=== PATIENT | female | born 1970 | race Caucasian/White ===

== ENCOUNTER 2016-03-11 17:03 | Emergency (ER) | payer OTHER ==
[~2016-03-11] VITALS: Ht 160 cm; Wt 106.1 kg
[~2016-03-11 17:03] MED LIST: CMP/10 PO; FLUT0.15 NAE
[2016-03-11 17:05] VITALS: BP 149/88; PULSE 61; TEMP 37; O2SAT 97; Ht 160 cm; Wt 106.1 kg
[2016-03-11] MEDS ORDERED: PROMETHAZINE HCL INJ 25 MG/ML 1 ML VIAL IM STA (17:36)
[2016-03-11] MEDS ORDERED: KETOROLAC TROMETHAMINE 60 MG/2 ML VIAL IM STA (17:36)
[2016-03-11] MEDS ORDERED: HYDROmorphone INJ 2 MG/ML SYR/VIAL IM ONE (17:45)
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
--- NOTE | 2016-03-13 00:52 | EMERGENCY ROOM VISIT NOTE ---
ED Visit Note First contact with patient: 17:13 CHIEF COMPLAINT: Migraine headache HISTORY OF PRESENT ILLNESS: Ms. Hurt is a 45 year-old white female who ambulates into the ED accompanied by her complaining of a migraine headache. She reports a gradual onset of a severe migraine headache that started approximately 2 days ago. The pain is constant and it is slowly increasing in severity. This is not the worst headache of the life and is similar to previous migraines. Currently she describes the headache as a pressure sensation/pain in the left frontal area behind the eye and radiating into the right parietal area. She rates the pain a 10/10. She has not identified any aggravating or alleviating factors related to pain. She reports taking Imitrex and OTC migraine headache medications without relief of pain. There is been associated light and sound sensitivity, right sided facial paresthesias, nausea with vomiting. She denies fever, chills, sweats, skin eruptions, skin color changes, dizziness , lightheadedness, recent head trauma, hearing changes, difficulty speaking, difficulty swallowing, difficulty ambulating/coronary body movements, neck pain/ stiffness, upper respiratory tract symptoms, sinus infection, runny nose, sore throat, recent dental trauma/dental work, extremity weakness/numbness/tingling, chest pain shortness of breath, abdominal pain. REVIEW OF SYSTEMS: As noted above in History of Present Illness. All body systems were reviewed with this patient and found to be negative unless noted above otherwise. PAST MEDICAL HISTORY: Medical Problems: (1) Anemia (2) Anxiety (3) Cystitides, interstitial, chronic (4) Depression (5) Drug overdose, intentional (6) Migraine (7) PTSD (post-traumatic stress disorder) (8) Restless leg syndrome (9) Suicidal overdose (10) Suicidal overdose (11) Suicide attempt (12) Vertigo Surgical Problems: (1) H/O gastric bypass (2) H/O: hysterectomy (3) History of appendectomy (4) History of tonsillectomy and adenoidectomy (5) Hx of cholecystectomy (6) Previous section CURRENT MEDICATIONS: Medications Dose Route/Sig Max Daily Dose Days Date Category Prazosin (Prazosin HCl) 2 Mg Cap 2 Mg PO HS 12/24/15 Reported Thorazine (Chlorpromazine HCl) 10 Mg Tab 10 Mg PO TID 12/24/15 Reported Promethazine HCl 25 Mg Tab 25 Mg PO Q6H PRN 12/12/15 Reported Trintellix (Vortioxetine HBr) 20 Mg Tab 20 Mg PO DAILY 11/06/15 Reported Prochlorperazine Maleate 10 Mg Tab 10 Mg PO UD PRN 09/28/15 Reported Eszopiclone 2 Mg Tab 2 Mg PO HS PRN 09/28/15 Reported Benadryl Allergy (Diphenhydramine Hcl) 25 Mg Cap 250 Mg PO HS PRN 07/18/15 Reported Klonopin (Clonazepam) 1 Mg Tab 1 Mg PO BID 06/01/15 Reported Excedrin Migraine (Mtusvaf-Pxdetckuikeca-Rvezvwcb) 1 Tab Tab 2 Tabs PO UD PRN 05/19/15 Reported Calcium Citrate + D (Calcium Citrate-Vitamin D) 1 Tab Tab 1 Tab PO DAILY 03/28/15 Reported Parafon Forte Dsc (Chlorzoxazone) 500 Mg Tab 500 Mg PO QID 03/28/15 Reported Elmiron (Pentosan Polysulfate Sodium) 100 Mg Cap 100 Mg PO TID PRN 03/28/15 Reported Flonase Allergy Relief (Fluticasone Propionate (Nasal)) 50 Mcg/Act Spr 2 Sprays ALEX DAILY 03/28/15 Reported Voltaren 1% Top Gel (Diclofenac Sodium (Topical)) 1 % Gel 1 Appln TOP QID PRN 03/28/15 Reported Ferrous Sulfate 325 Mg Tab 325 Mg PO DAILY 03/28/15 Reported Requip (Ropinirole Hydrochloride) 0.5 Mg Tab 1 Mg PO TID 03/28/15 Reported ALLERGIES TO MEDICATIONS: Latex, sulfa, butorphanol. SOCIAL HISTORY: Patient is not currently employed; she feels safe in her home environment; she denies tobacco and alcohol use. PHYSICAL EXAM: Vital Signs: Date Time Temp Pulse Resp B/P Pulse Ox O2 Delivery O2 Flow Rate FiO2 03/11/16 17:05 37.0 61 18 149/88 97 Room Air GENERAL: 45 year-old white female in moderate distress due to pain, afebrile and hemodynamically stable. Found lying in a darkened room. NEUROLOGIC: Awake, alert and oriented to person place and time. Answering questions appropriately and following commands. Cranial nerves II-XII grossly intact. No focal neurologic deficits noted. Normal gait. Good hand eye coordination. Good short-term and long-term recall. SKIN: Warm, dry and pink. No rashes, lesions or soft tissue trauma noted. HEENT: Normocephalic, atraumatic. PERRLA. EOMI without nystagmus. Sclera is white and conjunctiva pink without drainage. Funduscopic examination was deferred due to light sensitivity. External ears are nontender. Auditory canals are pink and patent. Tympanic membranes are pearly estrada with normal light reflex. Oral cavity is moist and pink. Uvula is midline and no abscesses are seen. No posterior pharyngeal erythema or edema. NECK: Soft and supple. No tenderness through the central cervical region or cervical musculature. No nuchal rigidity. No lymphadenopathy, jugular venous distention, or bruits noted. THORAX: Lungs clear to auscultation and equal bilaterally with no wheezing, crackles, rhonchi or stridor and equal chest wall movements. HEART: Regular rate and rhythm with no murmurs, rubs or gallops. ABDOMEN: Soft and nontender with bowel sounds present in all quadrants; no rigidity, rebound tenderness, organomegaly or guarding. MUSCULOSKELETAL: Full range of motion of all joints without any significant discomfort and the gait is normal. ED COURSE: Patient is assessed with history and physical examination. Patient was given 2 mg of the Dilaudid IM and 60 mg of Toradol IM for the pain and 25 mg of Phenergan IM nausea. Patient was reassessed. Patient was educated about her condition and instructed on her treatment plan; she verbalized understanding and agreement with this plan. CLINICAL IMPRESSION: Migraine headache. DECISION MAKIN-year-old female who presents for evaluation of headache. She is afebrile, well appearing, and hemodynamically stable. She has no signs of a sinus, dental , or ear infection and no evidence of meningismus. She is neurologically intact. I do not suspect a headache to be secondary to a subarachnoid hemorrhage, meningitis, encephalitis, or intracranial mass lesion. DISPOSITION: Patient was discharged to home in stable condition accompanied by family; prior to departure she was reassessed and subjectively reported she was feeling minimally better and rated her discomfort 5/10. DISCHARGE INSTRUCTIONS: Rest at home, in a quiet darkened room and allow the medication to work for the pain. Continue to follow up current treatment plan prescribed by your physician for your migraine headaches. See your own doctor in follow-up this week for continued care and treatment. Return to the emergency department as needed for worsening/uncontrolled pain, any abnormal neurological symptoms, fevers or in accordance with her pain management plan.
[2016-04-10] MEDS ORDERED: CHLO1TAB38 PO (05:11)
[2016-04-10] MEDS ORDERED: PRAZ2CAP3 PO (05:12)
[2016-04-17] MEDS ORDERED: ESZO1TAB20 PO (00:23)
[2016-04-17] MEDS ORDERED: PROM25TA16 PO (15:15)
[2016-04-17] MEDS ORDERED: DIPH25CA65 PO (19:17)
[2016-04-17] MEDS ORDERED: VORT1TAB3 PO (19:34)
[2016-04-17] MEDS ORDERED: CALC-279 PO (20:09)
[2016-04-17] MEDS ORDERED: RQP/5 PO (20:09)
[2016-04-17] MEDS ORDERED: PENT100C6 PO (20:09)
[2016-04-17] MEDS ORDERED: FERR325T5 PO (20:09)
[2016-04-17] MEDS ORDERED: CHLOTAB3 PO (20:09)
[2016-04-17] MEDS ORDERED: DICL1GEL12 TOP (20:09)
[2016-04-17] MEDS ORDERED: ASPI-390 PO (20:39)
== END 2016-03-11 18:16 | disposition home or self-care (01) ==
LOC: C.EDB 17:04 → C.EDD 18:16
DX: G43.909 Migraine, unspecified, not intractable, without status migrainosus (principal); Z98.84 Bariatric surgery status; F43.10 Post-traumatic stress disorder, unspecified; G25.81 Restless legs syndrome; Z90.710 Acquired absence of both cervix and uterus; Z90.89 Acquired absence of other organs; Z90.49 Acquired absence of other specified parts of digestive tract; F41.9 Anxiety disorder, unspecified; Z91.040 Latex allergy status; Z88.2 Allergy status to sulfonamides

== ENCOUNTER 2016-03-22 16:33 | Emergency (ER) | payer OTHER ==
[~2016-03-22] VITALS: Ht 160 cm; Wt 104.6 kg
[2016-03-22 16:56] VITALS: TEMP 36.9; Ht 160 cm; Wt 104.6 kg
[2016-03-22] MEDS ORDERED: PROMETHAZINE HCL INJ 25 MG/ML 1 ML VIAL IM STA (17:17)
[2016-03-22] MEDS ORDERED: KETOROLAC TROMETHAMINE 60 MG/2 ML VIAL IM STA (17:17)
[2016-03-22] MEDS ORDERED: HYDROmorphone INJ 2 MG/ML SYR/VIAL IM STA (17:17)
[2016-03-22 17:56] VITALS: BP 140/91; PULSE 98; O2SAT 94
--- NOTE | 2016-03-23 10:54 | EMERGENCY ROOM VISIT NOTE ---
ED Visit Note First contact with patient: 16:58 CHIEF COMPLAINT: Migraine headache HISTORY OF PRESENT ILLNESS: Ms. Hurt is a 45 year-old white female who ambulates into the ED accompanied by a female friend complaining of a migraine headache. She reports a gradual onset of a severe migraine headache that started approximately 6 days ago. The pain is constant and it is slowly increasing in severity. This is not the worst headache of the life and is similar to previous migraines. Currently she describes the headache as a pressure sensation/pain in the left frontal area behind the eye and radiating into the right parietal area. She rates the pain a 9/10. She has not identified any aggravating or alleviating factors related to pain. She reports taking Excedrin Migraine and Compazine without relief of her symptoms. There is been associated light and sound sensitivity, right sided facial paresthesias, nausea with vomiting. She denies fever, chills, sweats, skin eruptions, skin color changes, dizziness , lightheadedness, recent head trauma, hearing changes, difficulty speaking, difficulty swallowing, difficulty ambulating/coronary body movements, neck pain/ stiffness, upper respiratory tract symptoms, sinus infection, runny nose, sore throat, recent dental trauma/dental work, extremity weakness/numbness/tingling, chest pain shortness of breath, abdominal pain. REVIEW OF SYSTEMS: As noted above in History of Present Illness. All body systems were reviewed with this patient and found to be negative unless noted above otherwise. PAST MEDICAL HISTORY: Medical Problems: (1) Anemia (2) Anxiety (3) Cystitides, interstitial, chronic (4) Depression (5) Drug overdose, intentional (6) Migraine (7) PTSD (post-traumatic stress disorder) (8) Restless leg syndrome (9) Suicidal overdose (10) Suicidal overdose (11) Suicide attempt (12) Vertigo Surgical Problems: (1) H/O gastric bypass (2) H/O: hysterectomy (3) History of appendectomy (4) History of tonsillectomy and adenoidectomy (5) Hx of cholecystectomy (6) Previous section CURRENT MEDICATIONS: Medications Dose Route/Sig Max Daily Dose Days Date Category Prazosin (Prazosin HCl) 2 Mg Cap 2 Mg PO HS 12/24/15 Reported Thorazine (Chlorpromazine HCl) 10 Mg Tab 25 Mg PO TID 12/24/15 Reported Promethazine HCl 25 Mg Tab 25 Mg PO Q6H PRN 12/12/15 Reported Trintellix (Vortioxetine HBr) 20 Mg Tab 20 Mg PO DAILY 11/06/15 Reported Prochlorperazine Maleate 10 Mg Tab 10 Mg PO UD PRN 09/28/15 Reported Eszopiclone 2 Mg Tab 2 Mg PO HS PRN 09/28/15 Reported Benadryl Allergy (Diphenhydramine Hcl) 25 Mg Cap 250 Mg PO HS PRN 07/18/15 Reported Klonopin (Clonazepam) 1 Mg Tab 1 Mg PO BID 06/01/15 Reported Excedrin Migraine (Zzxkagq-Puhqnzfrxeogq-Gkjzeywk) 1 Tab Tab 2 Tabs PO UD PRN 05/19/15 Reported Calcium Citrate + D (Calcium Citrate-Vitamin D) 1 Tab Tab 1 Tab PO DAILY 03/28/15 Reported Parafon Forte Dsc (Chlorzoxazone) 500 Mg Tab 500 Mg PO QID 03/28/15 Reported Elmiron (Pentosan Polysulfate Sodium) 100 Mg Cap 100 Mg PO TID PRN 03/28/15 Reported Flonase Allergy Relief (Fluticasone Propionate (Nasal)) 50 Mcg/Act Spr 2 Sprays ALEX DAILY 03/28/15 Reported Voltaren 1% Top Gel (Diclofenac Sodium (Topical)) 1 % Gel 1 Appln TOP QID PRN 03/28/15 Reported Ferrous Sulfate 325 Mg Tab 325 Mg PO DAILY 03/28/15 Reported Requip (Ropinirole Hydrochloride) 0.5 Mg Tab 1 Mg PO TID 03/28/15 Reported ALLERGIES TO MEDICATIONS: Latex, sulfa, butorphanol. SOCIAL HISTORY: Patient is not currently employed; she feels safe in her home environment; she denies tobacco and alcohol use. PHYSICAL EXAM: Vital Signs: Date Time Temp Pulse Resp B/P Pulse Ox O2 Delivery O2 Flow Rate FiO2 03/22/16 17:56 98 16 140/91 94 Room Air 03/22/16 16:56 36.9 107 18 143/104 96 Room Air GENERAL: 45 year-old white female in moderate distress due to pain, afebrile and hemodynamically stable. Found lying in a darkened room. NEUROLOGIC: Awake, alert and oriented to person place and time. Answering questions appropriately and following commands. Cranial nerves II-XII grossly intact. No focal neurologic deficits noted. Normal gait. Good hand eye coordination. Good short-term and long-term recall. SKIN: Warm, dry and pink. No rashes, lesions or soft tissue trauma noted. HEENT: Normocephalic, atraumatic. PERRLA. EOMI without nystagmus. Sclera is white and conjunctiva pink without drainage. Funduscopic examination was deferred due to light sensitivity. External ears are nontender. Auditory canals are pink and patent. Tympanic membranes are pearly estrada with normal light reflex. Oral cavity is moist and pink. Uvula is midline and no abscesses are seen. No posterior pharyngeal erythema or edema. NECK: Soft and supple. No tenderness through the central cervical region or cervical musculature. No nuchal rigidity. No lymphadenopathy, jugular venous distention, or bruits noted. THORAX: Lungs clear to auscultation and equal bilaterally with no wheezing, crackles, rhonchi or stridor and equal chest wall movements. HEART: Regular rate and rhythm with no murmurs, rubs or gallops. ABDOMEN: Soft and nontender with bowel sounds present in all quadrants; no rigidity, rebound tenderness, organomegaly or guarding. MUSCULOSKELETAL: Full range of motion of all joints without any significant discomfort and the gait is normal. ED COURSE: Patient is assessed with history and physical examination. Patient was given 2 mg of the Dilaudid IM and 60 mg of Toradol IM for the pain and 25 mg of Phenergan IM nausea. Patient was reassessed. Patient was educated about her condition and instructed on her treatment plan; she verbalized understanding and agreement with this plan. CLINICAL IMPRESSION: Migraine headache. DECISION MAK[place]-year-old female who presents for evaluation of headache. She is afebrile, well appearing, and hemodynamically stable. She has no signs of a sinus, dental , or ear infection and no evidence of meningismus. She is neurologically intact. I do not suspect a headache to be secondary to a subarachnoid hemorrhage, meningitis, encephalitis, or intracranial mass lesion. DISPOSITION: Patient was discharged to home in stable condition accompanied by family; prior to departure she was reassessed and subjectively reported she was feeling minimally better and reported she was pain-free DISCHARGE INSTRUCTIONS: Rest at home, in a quiet darkened room and allow the medication to work for the pain. Continue to follow up current treatment plan prescribed by your physician for your migraine headaches. See your own doctor in follow-up this week for continued care and treatment. Return to the emergency department as needed for worsening/uncontrolled pain, any abnormal neurological symptoms, fevers or in accordance with her pain management plan.
[2016-04-10] MEDS ORDERED: CHLO1TAB38 PO (05:11)
[2016-04-10] MEDS ORDERED: PRAZ2CAP3 PO (05:12)
[2016-04-17] MEDS ORDERED: ESZO1TAB20 PO (00:23)
[2016-04-17] MEDS ORDERED: PROM25TA16 PO (15:15)
[2016-04-17] MEDS ORDERED: DIPH25CA65 PO (19:17)
[2016-04-17] MEDS ORDERED: VORT1TAB3 PO (19:34)
[2016-04-17] MEDS ORDERED: CHLOTAB3 PO (20:09)
[2016-04-17] MEDS ORDERED: DICL1GEL12 TOP (20:09)
[2016-04-17] MEDS ORDERED: CALC-279 PO (20:09)
[2016-04-17] MEDS ORDERED: FERR325T5 PO (20:09)
[2016-04-17] MEDS ORDERED: PENT100C6 PO (20:09)
[2016-04-17] MEDS ORDERED: RQP/5 PO (20:09)
[2016-04-17] MEDS ORDERED: ASPI-390 PO (20:39)
== END 2016-03-22 17:58 | disposition home or self-care (01) ==
LOC: C.EDB 16:35 → C.EDD 17:58
DX: G43.909 Migraine, unspecified, not intractable, without status migrainosus (principal); F43.10 Post-traumatic stress disorder, unspecified; F32.9 Major depressive disorder, single episode, unspecified; Z98.84 Bariatric surgery status

== ENCOUNTER 2016-04-10 16:11 | Emergency (ER) | payer OTHER ==
[~2016-04-10] VITALS: Ht 160 cm; Wt 103.7 kg
[~2016-04-10 16:11] MED LIST changes: +CHLO1TAB38 PO; +PRAZ2CAP3 PO
[2016-04-10 16:12] VITALS: TEMP 36.9; Ht 160 cm; Wt 103.7 kg
[2016-04-10] MEDS ORDERED: KETOROLAC TROMETHAMINE 30 MG/ML VIAL IV STA (16:46)
[2016-04-10] MEDS ORDERED: SODIUM CHLORIDE 0.9% 1000ML 1,000 ML IV STA (16:46)
[2016-04-10] MEDS ORDERED: DiphenhydrAMINE HCL 50 MG/ML VIAL IV STA (16:46)
[2016-04-10] MEDS ORDERED: METOCLOPRAMIDE HCL INJ 5 MG/ML 2 ML VIAL IV STA (16:46)
[2016-04-10] MEDS ORDERED: VNTHFA/IN INH (16:50)
[2016-04-10] MEDS ORDERED: ARIP1TAB16 PO (16:50)
[2016-04-10] MEDS ORDERED: ARIP20TA4 PO (16:59)
--- NOTE | 2016-04-10 17:23 | EMERGENCY ROOM VISIT NOTE ---
History Report prepared by Daniela: Jimy Frost Under the Supervision of: Dr. Jose Armando Welsh M.D. First contact with patient: 16:18 Chief Complaint: HEADACHE Stated Complaint: MIGRAINE History of Present Illness The patient is a 45 year old female who presents to the Emergency Room with complaints of a persistent migraine headache that started 2 and a half days ago. She says the pain is off the center and towards the right side. She says she is nauseous. The patient says this location is typically where her migraine pain is. She has had migraines ever since she was 4 years old. The patient gets migraines 2 or 3 times per week, lasting for several days a piece. When asked she essentially has a headache all the time. The patient rates the pain as a 10 out of 10 in severity. She took Excedrin Migraine, Compazine, and Phenergan 3 hours ago, and then she took Lorazepam a little over an hour ago. She had to take Lorazepam to calm herself down. The patient sees a family doctor and a neurologist for managing her migraines. She is allergic to sulfa drugs. The patient notes that she has a packet to fill out to go to [facility]. Pt denies LOC, fevers, chills, diaphoresis, visual changes, neck pain, chest pain, breathing difficulties, vomiting, abdominal pain, back pain, melena, hematochezia, urinary symptoms, numbness, weakness, lymphadenopathy, rash, or other complaints. Source of History: patient Onset: 2 and a half days ago Position: head Symptom Intensity: 10/10 in severity Quality: other (migraine) Timing: other (persistent) Associated Symptoms: + nausea Note: No other associated symptoms noted. Review of Systems See HPI for pertinent positives and negatives. A total of ten systems were reviewed and were otherwise negative. Past Medical & Surgical Medical Problems: (1) Anemia (2) Anxiety (3) Cystitides, interstitial, chronic (4) Depression (5) Drug overdose, intentional (6) Migraine (7) PTSD (post-traumatic stress disorder) (8) Restless leg syndrome (9) Suicidal overdose (10) Suicidal overdose (11) Suicide attempt (12) Vertigo Surgical Problems: (1) H/O gastric bypass (2) H/O: hysterectomy (3) History of appendectomy (4) History of tonsillectomy and adenoidectomy (5) Hx of cholecystectomy (6) Previous section Family History Diabetes mellitus FH: cancer FH: diabetes mellitus FH: heart disease Heart disease Hypertension Kidney disease Kidney stones Social History Smoking Status: Never Smoker Alcohol Use: none Drug Use: none Marital Status: Housing Status: lives with family Occupation Status: unemployed, disabled Current/Historical Medications Scheduled Aripiprazole (Abilify), 20 MG PO HS Calcium Citrate-Vitamin D (Calcium Citrate + D), 1 TAB PO DAILY Chlorpromazine Hcl (Thorazine), 25 MG PO TID Clonazepam (Klonopin), 1 MG PO BID Ferrous Sulfate (Ferrous Sulfate), 325 MG PO DAILY Prazosin Hcl (Prazosin), 2 MG PO HS Ropinirole Hydrochloride (Requip), 1 MG PO TID Vortioxetine HBr (Trintellix), 20 MG PO HS Scheduled PRN Gnnnhez-Rmdpmhjmbtloz-Mbxjvedm (Excedrin Migraine), 2 TABS PO UD PRN for Headache Chlorzoxazone (Parafon Forte Dsc), 500 MG PO QID PRN for Diclofenac Sodium (Topical) (Voltaren 1% Top Gel), 1 APPLN TOP QID PRN for Pain Diphenhydramine Hcl (Benadryl Allergy), 250 MG PO HS PRN for Sleep Eszopiclone (Eszopiclone), 2 MG PO HS PRN for Insomnia Pentosan Polysulfate Sodium (Elmiron), 100 MG PO TID PRN for Promethazine HCl (Promethazine HCl), 25 MG PO Q6H PRN for Nausea Allergies Coded Allergies: Banana (Verified Allergy, Severe, ANAPHYLAXIS, 04/10/16) Dog Dander (Verified Allergy, Severe, anaphylactic, 03/22/16) Kiwi (Unverified Allergy, Severe, RESPIRATORY PROBLEMS, 03/22/16) NUTS (Verified Allergy, Severe, difficulty breathing, hives, 03/22/16) Pecan (Unverified Allergy, Severe, ANAPHYLAXIS, 03/22/16) Butorphanol (Verified Allergy, Mild, 03/22/16) Sulfa Antibiotics (Verified Allergy, Mild, `, 03/22/16) Latex (Verified Allergy, Unknown, itchy, 03/22/16) Pistachio (Unverified Allergy, Unknown, ANAPHYLAXIS, 03/22/16) Uncoded Allergies: SULFA (Allergy, Severe, antaphlaxisi, 10/06/15) Physical Exam Vital Signs Date Time Temp Pulse Resp B/P Pulse Ox O2 Delivery O2 Flow Rate FiO2 04/10/16 16:12 36.9 118 20 141/89 98 Room Air Physical Exam GENERAL: Awake, alert, tired appearing, no distress HENT: Normocephalic, atraumatic. TM's normal. Oropharynx unremarkable. EYES: PERRL. EOMI. Normal conjunctiva. Sclera non-icteric. NECK: Supple. No nuchal rigidity. FROM. No JVD or bruit. RESPIRATORY: CTA CARDIAC: RRR. No murmur. ABDOMEN: Soft, non distended. No tenderness to palpation. No rebound or guarding. No masses. RECTAL: Deferred. MUSCULOSKELETAL: Unremarkable. No edema. No discoloration. Gross motor strength symmetric. NEURO: Cranial nerves 2-12 grossly intact. Normal sensorium. No sensory or motor deficits noted. Gait normal. Speech normal. No pronator drift. Negative rhomberg. SKIN: No rash or jaundice noted. LYMPH: No adenopathy. Medical Decision & Procedures Medications Administered Medications (Trade) Dose Ordered Sig/Gary Route Start Time Stop Time Status Last Admin Dose Admin Sodium Chloride (Nss 1000ml) 1,000 ml @ 999 mls/hr Q1H1M STAT IV 04/10/16 16:46 04/10/16 17:46 DC 04/10/16 16:46 999 MLS/HR Metoclopramide HCl (Reglan Inj) 10 mg NOW STAT IV 04/10/16 16:46 04/10/16 16:49 DC 04/10/16 17:18 10 MG Ketorolac Tromethamine (Toradol Inj) 30 mg NOW STAT IV 04/10/16 16:46 04/10/16 16:49 DC 04/10/16 17:17 30 MG Diphenhydramine HCl (Benadryl Inj) 50 mg NOW STAT IV 04/10/16 16:46 04/10/16 16:49 DC 04/10/16 17:18 50 MG ED Course 1638: The patient was evaluated in room D5. A complete history and physical exam was performed. 1646: Ordered Benadryl Inj 50 mg IV, Toradol Inj 30 mg IV, Reglan Inj 10 mg IV, NSS 1000 ml @ 999 mls/hr IV. 1803: I reevaluated the patient and her nausea is gone. She feels better but she still has a headache. I told her that she is on a treatment plan and we are limited as far as narcotics go. I told the patient that she can go home and take her medications, and follow up as an outpatient. She can come back here for reevaluation. The patient verbally expressed understanding and agreement of the treatment plan. The patient will be discharged. Medical Decision Prior records/ancillary studies reviewed. Triage Nursing notes reviewed and agree them. The patient's history was concerning for headache. Differential diagnosis: Etiologies such as migraine headache, meningitis, sinusitis, CO exposure, ICH, SAH, infection, tumor, headache, sinus thrombosis, arterial dissection, as well as others were entertained. Physical examination findings: As above. Non-focal. ER treatment provided: The patient is on a treatment plan limiting her to 2 narcotic injections per month. She has had 2 previous visits and received narcotics on this. The patient was counseled.I gave my usual and customary discussion regarding this issue. IV Reglan IV Benadryl IV normal saline IV Toradol On reassessment the patient felt better with the nausea but still had a headache. I did discuss the fact that narcotics are limited at this time. I gave my usual and customary discussion regarding this issue. Diagnostics interpreted by me: Deferred The patient has a long history of migraines, over 40 years. She has weekly migraines, in fact nearly daily. She has a pending evaluation at [place] [facility]. She is on a treatment plan. She has had multiple visits already this month. By the evaluation outlined above emergent etiologies such as meningitis, sinusitis, CO exposure, ICH, SAH, infection, temporal arteritis, tumor, sinus thrombosis, arterial dissection, as well as others were deemed relatively unlikely. The patient was informed about the findings as listed above. All questions were answered and she was pleased with the treatment. Return instructions were outlined and the patient was discharged in stable condition. Outpatient prescription management: No change Referral: The patient was referred back to her primary care physician for follow-up in 2 to 3 days for a recheck of the current condition. The chart was completed utilizing [employer] voice recognition software. Grammatical errors, random word insertions, pronoun errors, and incomplete sentences are an occasional consequence of this system due to software limitations, ambient noise, and hardware issues. Any formal questions or concerns about the content, text, or information contained within the body of this dictation should be directly addressed to the physician for clarification. Impression Primary Impression: Headache Scribe Attestation The scribe's documentation has been prepared under my direction and personally reviewed by me in its entirety. I confirm that the note above accurately reflects all work, treatment, procedures, and medical decision making performed by me. Departure Information Dispostion Home / Self-Care Referrals No Doctor, Assigned (PCP) Forms HOME CARE DOCUMENTATION FORM, IMPORTANT VISIT INFORMATION Patient Instructions My [facility] Additional Instructions HEADACHE INSTRUCTIONS: DO NOT drive, drink alcohol, operate machinery, or perform dangerous activities today. You were given medications in the ER that can affect your ability to safely function or operate a vehicle. Rest today in a quiet, peaceful, dark environment and get a full 8-10 hrs of sleep tonight. Avoid loud noises, smoke/smoking, alcohol, bright lights, stress, or physical exertion today to minimize the chance the headache may return. Continue current medications. Ibuprofen(Motrin, Advil) may be used for fever or pain. Use 600mg every six hours as needed. Take with food. Avoid using more than 2400mg in a 24 hour period. Do not use 2400mg per day for more than three consecutive days without physician direction. Prolonged inappropriate use can lead to stomach upset or ulcers. (AND/OR) Acetaminophen(Tylenol) may be used for fever or pain. Use 1000mg every six hours as needed. Avoid using more than 4000mg in a 24 hour period. Return to the ER for passing out, worsening headache, vision problems, neck stiffness/pain, fevers, vomiting, worsening of your condition, or as needed. Follow up with your primary physician in 2-3 days for a recheck of your current condition. Problem Qualifiers Primary Impression: Headache
[2016-04-10] MEDS ORDERED: CLON1TAB3 PO (17:48)
[2016-04-10 18:17] VITALS: BP 125/83; PULSE 69; O2SAT 98
[2016-04-17] MEDS ORDERED: ESZO1TAB20 PO (00:23)
[2016-04-17] MEDS ORDERED: PROM25TA16 PO (15:15)
[2016-04-17] MEDS ORDERED: DIPH25CA65 PO (19:17)
[2016-04-17] MEDS ORDERED: VORT1TAB3 PO (19:34)
[2016-04-17] MEDS ORDERED: CHLOTAB3 PO (20:09)
[2016-04-17] MEDS ORDERED: RQP/5 PO (20:09)
[2016-04-17] MEDS ORDERED: DICL1GEL12 TOP (20:09)
[2016-04-17] MEDS ORDERED: CALC-279 PO (20:09)
[2016-04-17] MEDS ORDERED: PENT100C6 PO (20:09)
[2016-04-17] MEDS ORDERED: FERR325T5 PO (20:09)
[2016-04-17] MEDS ORDERED: ASPI-390 PO (20:39)
== END 2016-04-10 18:18 | disposition home or self-care (01) ==
LOC: C.EDB 16:12 → C.EDD 18:18
DX: G43.909 Migraine, unspecified, not intractable, without status migrainosus (principal); D64.9 Anemia, unspecified; F41.9 Anxiety disorder, unspecified; F32.9 Major depressive disorder, single episode, unspecified; F43.10 Post-traumatic stress disorder, unspecified; G25.81 Restless legs syndrome; Z98.84 Bariatric surgery status; Z90.49 Acquired absence of other specified parts of digestive tract; Z90.710 Acquired absence of both cervix and uterus; Z83.3 Family history of diabetes mellitus; Z82.49 Family history of ischemic heart disease and other diseases of the circulatory system; Z79.899 Other long term (current) drug therapy

== ENCOUNTER 2016-04-17 20:43 | Emergency (ER) | payer OTHER ==
[~2016-04-17] VITALS: Ht 160 cm; Wt 104.3 kg
[~2016-04-17 20:43] MED LIST changes: +ARIP20TA4 PO; +ASPI-390 PO; +CALC-279 PO; +CHLOTAB3 PO; +CLON1TAB3 PO; -CMP/10 PO; +DICL1GEL12 TOP; +DIPH25CA65 PO; +ESZO1TAB20 PO; +FERR325T5 PO; -FLUT0.15 NAE; +PENT100C6 PO; +PROM25TA16 PO; +RQP/5 PO; +VORT1TAB3 PO
[2016-04-17 20:54] VITALS: Ht 160 cm; Wt 104.3 kg
[2016-04-17] MEDS ORDERED: PROMETHAZINE HCL INJ 25 MG/ML 1 ML VIAL IM STA (21:10)
[2016-04-17] MEDS ORDERED: HYDROmorphone INJ 2 MG/ML SYR/VIAL IM STA (21:10)
[2016-04-17] MEDS ORDERED: KETOROLAC TROMETHAMINE 60 MG/2 ML VIAL IM STA (21:10)
[2016-04-17] MEDS ORDERED: ARIP1TAB17 PO (21:35)
[2016-04-17] MEDS ORDERED: KLN1X PO (21:35)
[2016-04-17] MEDS ORDERED: PRAZ1CAP28 PO (21:35)
[2016-04-17] MEDS ORDERED: THR25X PO (21:38)
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
[2016-04-17 22:04] VITALS: BP 131/85; PULSE 84; TEMP 36.6; O2SAT 97
== END 2016-04-17 22:05 | disposition home or self-care (01) ==
LOC: C.EDB 20:45 → C.EDD 22:05
DX: G43.909 Migraine, unspecified, not intractable, without status migrainosus (principal); D64.9 Anemia, unspecified; F41.9 Anxiety disorder, unspecified; F32.9 Major depressive disorder, single episode, unspecified; F43.10 Post-traumatic stress disorder, unspecified; G25.81 Restless legs syndrome; Z98.84 Bariatric surgery status; Z90.710 Acquired absence of both cervix and uterus; Z90.49 Acquired absence of other specified parts of digestive tract; Z79.899 Other long term (current) drug therapy

== ENCOUNTER 2016-05-06 15:32 | Emergency (ER) | payer OTHER ==
[~2016-05-06] VITALS: Ht 160 cm; Wt 103.1 kg
[~2016-05-06 15:32] MED LIST changes: +ARIP1TAB17 PO; -ARIP20TA4 PO; -CHLO1TAB38 PO; -CLON1TAB3 PO; +KLN1X PO; +PRAZ1CAP28 PO; -PRAZ2CAP3 PO; +THR25X PO
[2016-05-06 15:46] VITALS: TEMP 36.5; Ht 160 cm; Wt 103.1 kg
[2016-05-06] MEDS ORDERED: PROMETHAZINE HCL INJ 25 MG/ML 1 ML VIAL IM STA (16:01)
[2016-05-06] MEDS ORDERED: KETOROLAC TROMETHAMINE 60 MG/2 ML VIAL IM STA (16:01)
[2016-05-06] MEDS ORDERED: HYDROmorphone INJ 2 MG/ML SYR/VIAL IM STA (16:01)
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
[2016-05-06 16:59] VITALS: BP 147/97; PULSE 87; O2SAT 98
== END 2016-05-06 17:00 | disposition home or self-care (01) ==
LOC: C.EDB 15:34 → C.EDD 17:00
DX: G43.909 Migraine, unspecified, not intractable, without status migrainosus (principal); D64.9 Anemia, unspecified; F41.9 Anxiety disorder, unspecified; F32.9 Major depressive disorder, single episode, unspecified; Z90.710 Acquired absence of both cervix and uterus

== ENCOUNTER 2016-05-25 08:09 | Emergency (ER) | payer OTHER ==
[~2016-05-25] VITALS: Ht 160 cm; Wt 105.4 kg
[2016-05-25 08:16] VITALS: TEMP 36.9; Ht 160 cm; Wt 105.4 kg
[2016-05-25] MEDS ORDERED: HYDROmorphone INJ 2 MG/ML SYR/VIAL IM STA (08:28)
[2016-05-25] MEDS ORDERED: KETOROLAC TROMETHAMINE 60 MG/2 ML VIAL IM STA (08:28)
[2016-05-25] MEDS ORDERED: PROMETHAZINE HCL INJ 25 MG/ML 1 ML VIAL IM STA (08:28)
--- NOTE | 2016-05-25 08:30 | EMERGENCY ROOM VISIT NOTE ---
History Report prepared by Daniela: Nuris Wise Under the Supervision of: Dr. Darline Han M.D. First contact with patient: 08:24 Chief Complaint: HEADACHE Stated Complaint: MIGRAINE - NAUSEA History of Present Illness The patient is a 45 year old female who presents to the Emergency Room with complaints of a persistent migraine headache that began yesterday. She is sensitive to light, sound, and smell. She also complains of nausea and vomiting which began last night. She used Excedrin for her symptoms but could not keep the medication down. The patient has a history of migraines and typically has 2- 3 migraines a week. Her current symptoms feel like a typical migraine. She follows with Dr. Miller - Neurology. Denies fevers, cough, cold or other complaints. She is not a smoker. Source of History: patient Onset: yesterday Position: head Quality: other (migraine) Timing: other (persistent) Modifying Factors (Worsening): other (light, sound, smell) Associated Symptoms: + nausea, + vomiting, No cough, No fevers Review of Systems See HPI for pertinent positives & negatives. A total of 10 systems reviewed and were otherwise negative. Past Medical & Surgical Medical Problems: (1) Anemia (2) Anxiety (3) Cystitides, interstitial, chronic (4) Depression (5) Drug overdose, intentional (6) Migraine (7) PTSD (post-traumatic stress disorder) (8) Restless leg syndrome (9) Suicidal overdose (10) Suicidal overdose (11) Suicide attempt (12) Vertigo Surgical Problems: (1) H/O gastric bypass (2) H/O: hysterectomy (3) History of appendectomy (4) History of tonsillectomy and adenoidectomy (5) Hx of cholecystectomy (6) Previous section Family History Diabetes mellitus FH: cancer FH: diabetes mellitus FH: heart disease Heart disease Hypertension Kidney disease Kidney stones Social History Smoking Status: Never Smoker Alcohol Use: none Drug Use: none Marital Status: Housing Status: lives with family Occupation Status: unemployed, disabled Current/Historical Medications Scheduled Aripiprazole (Aripiprazole), 20 MG PO HS Calcium Citrate-Vitamin D (Calcium Citrate + D), 1 TAB PO DAILY Chlorpromazine HCl (Chlorpromazine HCl), 25 MG PO TID Clonazepam (Clonazepam), 1 MG PO BID Ferrous Sulfate (Ferrous Sulfate), 325 MG PO DAILY Prazosin Hcl (Prazosin), 2 MG PO HS Ropinirole Hydrochloride (Requip), 1 MG PO TID Vortioxetine HBr (Trintellix), 20 MG PO HS Scheduled PRN Duhyzyl-Deuqmpyfqlkci-Zubzuhtv (Excedrin Migraine), 2 TABS PO UD PRN for Headache Chlorzoxazone (Parafon Forte Dsc), 500 MG PO QID PRN for UNDECIDED Diclofenac Sodium (Topical) (Voltaren 1% Top Gel), 1 APPLN TOP QID PRN for Pain Diphenhydramine Hcl (Benadryl Allergy), 50 MG PO HS PRN for Sleep Eszopiclone (Eszopiclone), 2 MG PO HS PRN for Insomnia Pentosan Polysulfate Sodium (Elmiron), 100 MG PO TID PRN for UNDECIDED Promethazine HCl (Promethazine HCl), 25 MG PO Q6H PRN for Nausea Allergies Coded Allergies: Banana (Verified Allergy, Severe, ANAPHYLAXIS, 04/17/16) Dog Dander (Verified Allergy, Severe, anaphylactic, 04/17/16) Kiwi (Unverified Allergy, Severe, RESPIRATORY PROBLEMS, 04/17/16) NUTS (Verified Allergy, Severe, difficulty breathing, hives, 04/17/16) Pecan (Unverified Allergy, Severe, ANAPHYLAXIS, 04/17/16) Butorphanol (Verified Allergy, Mild, 04/17/16) Sulfa Antibiotics (Verified Allergy, Mild, `, 04/17/16) Latex (Verified Allergy, Unknown, itchy, 04/17/16) Pistachio (Unverified Allergy, Unknown, ANAPHYLAXIS, 04/17/16) Physical Exam Vital Signs Date Time Temp Pulse Resp B/P Pulse Ox O2 Delivery O2 Flow Rate FiO2 05/25/16 09:54 65 142/85 96 05/25/16 08:16 36.9 95 20 138/82 98 Room Air Physical Exam Vital signs reviewed. General: Well-appearing 45 year old female, in no significant distress. HEENT: No scleral icterus, PERRLA, neck supple. Atraumatic. Cardiovascular: Regular rate and rhythm, no extra sounds. Pulmonary: Clear to auscultation bilaterally, normal work of breathing. Abdomen: Soft, nontender, nondistended, positive bowel sounds. Musculoskeletal: Atraumatic, no peripheral edema. Neurologic: Patient awake alert and oriented x 3, full strength in all 4 extremities. Cranial nerves 2 through 12 grossly intact, no meningeal signs. Skin: Warm, dry, no rash Medical Decision & Procedures Medications Administered Medications (Trade) Dose Ordered Sig/Gary Route Start Time Stop Time Status Last Admin Dose Admin Ketorolac Tromethamine (Toradol Inj) 60 mg NOW STAT IM 05/25/16 08:28 05/25/16 08:29 DC 05/25/16 08:34 60 MG Hydromorphone HCl (Dilaudid Inj) 2 mg NOW STAT IM 05/25/16 08:28 05/25/16 08:29 DC 05/25/16 08:34 2 MG Promethazine HCl (Phenergan Inj) 25 mg NOW STAT IM 05/25/16 08:28 05/25/16 08:29 DC 05/25/16 08:28 25 MG ED Course 0828: Past medical records reviewed. The patient was evaluated in room A11. A complete history and physical examination was performed. Ordered Phenergan 25 mg IM, Dilaudid inj 2 mg IM, Toradol Inj 60 mg IM. 0945: Upon reevaluation, the patient appeared to have improvement of her symptoms. I discussed findings with the patient. She verbalized agreement of the treatment plan. The patient was discharged home. Medical Decision Headache: Intracranial hemorrhage, intracranial mass, migraine headache, tension headache , sinusitis, meningitis This patient was evaluated and appeared to be in some discomfort. Patient was medicated per her pain management protocol with IM Toradol, IM Dilaudid and IM Phenergan. She had significant resolution of her symptoms. She felt that this represented a typical migraine headache therefore no further imaging was performed. The patient was discharged with care of her mother and will return to the ER for worsening of symptoms or any medical concerns. Impression Primary Impression: Migraine headache Scribe Attestation The scribe's documentation has been prepared under my direction and personally reviewed by me in its entirety. I confirm that the note above accurately reflects all work, treatment, procedures, and medical decision making performed by me. Departure Information Dispostion Home / Self-Care Referrals Milagro Steiner [place] (PCP) Patient Instructions My [facility] Additional Instructions Diagnosis: Migraine headache Continue your medications as prescribed. Follow-up with your physician this week for reevaluation. Return to the ER for worsening of symptoms or any medical concerns. Problem Qualifiers Primary Impression: Migraine headache Migraine type: without aura Status migrainosus presence: without status migrainosus Intractability: not intractable Qualified Codes: G43.009 - Migraine without aura, not intractable, without status migrainosus
[2016-05-25 09:54] VITALS: BP 142/85; PULSE 65; O2SAT 96
== END 2016-05-25 09:55 | disposition home or self-care (01) ==
LOC: C.EDB 08:10 → C.EDA 09:55
DX: G43.909 Migraine, unspecified, not intractable, without status migrainosus (principal); Z98.84 Bariatric surgery status; Z90.710 Acquired absence of both cervix and uterus; Z90.89 Acquired absence of other organs; Z90.49 Acquired absence of other specified parts of digestive tract; Z83.3 Family history of diabetes mellitus; Z80.9 Family history of malignant neoplasm, unspecified; Z82.49 Family history of ischemic heart disease and other diseases of the circulatory system; Z84.1 Family history of disorders of kidney and ureter; Z88.2 Allergy status to sulfonamides; Z91.040 Latex allergy status; Z91.018 Allergy to other foods

== ENCOUNTER 2016-06-06 06:14 | Emergency (ER) | payer OTHER ==
[~2016-06-06] VITALS: Ht 160 cm; Wt 103.6 kg
[2016-06-06 06:16] VITALS: PULSE 105; TEMP 37; O2SAT 98; Ht 160 cm; Wt 103.6 kg
--- NOTE | 2016-06-06 07:06 | DIAGNOSTIC IMAGING REPORT ---
RIGHT SECOND AND THIRD TOE RADIOGRAPHS CLINICAL HISTORY: Right second and third toe pain and bruising status post fall. COMPARISON: None FINDINGS: There are acute minimally displaced avulsion fractures of the dorsal bases of the distal phalanges of the second and third toes with intra-articular extension. There is soft tissue swelling of the toes. No additional fractures are identified. IMPRESSION: Acute minimally displaced avulsion fractures of the dorsal bases of the distal phalanges of the right second and third toes. The findings suggest a hyperflexion injury. Electronically signed by: Roger Pierce M.D. 06/06/2016 7:04 AM Dictated Date/Time: 06/06/2016 7:02 AM
[2016-06-06] MEDS ORDERED: IBUPROFEN 600 MG TAB PO STA (07:10)
[2016-06-06] MEDS ORDERED: OXYCODONE HCL IR 5 MG TAB (IMMEDIATE RELEASE) PO STA (07:10)
[2016-06-06] MEDS ORDERED: OXYC1TAB3 PO (07:14)
[2016-06-06 08:01] VITALS: BP 130/75
--- NOTE | 2016-06-06 15:39 | EMERGENCY ROOM VISIT NOTE ---
History Report prepared by Nathanibsantos: Daniel Estrella Under the Supervision of: Dr. Jose Armando Welsh M.D. First contact with patient: 06:41 Chief Complaint: TOE PAIN, INJURY Stated Complaint: 2 BROKEN TOES ON THE RIGHT FOOT History of Present Illness The patient is a 45 year old female who presents to the Emergency Room with complaints of persistent toe pain since yesterday. The patient missed the last step causing her right toes to push into the floor. The patient was barefoot. She describes throbbing pain rated 8/10 in severity. She also notes bruising. The patient has been icing and elevating the toes. She has also been taking Naproxen for pain. The patient did not sustain any other injuries, including to the rest of the right leg. She has injured toes in the past but is not sure which. She has never followed up with an Orthopedist. Patient denies LOC, headache, visual changes, neck pain, chest pain, breathing difficulties, nausea , vomiting, abdominal pain, back pain, numbness, weakness, open wounds, active bleeding, or other complaints. Source of History: patient Onset: yesterday Position: toe(s) (right foot) Symptom Intensity: 8/10 Quality: other (throbbing) Timing: other (persistent) Review of Systems See HPI for pertinent positives and negatives. A total of ten systems were reviewed and were otherwise negative. Past Medical & Surgical Medical Problems: (1) Anemia (2) Anxiety (3) Cystitides, interstitial, chronic (4) Depression (5) Drug overdose, intentional (6) Migraine (7) PTSD (post-traumatic stress disorder) (8) Restless leg syndrome (9) Suicidal overdose (10) Suicidal overdose (11) Suicide attempt (12) Vertigo Surgical Problems: (1) H/O gastric bypass (2) H/O: hysterectomy (3) History of appendectomy (4) History of tonsillectomy and adenoidectomy (5) Hx of cholecystectomy (6) Previous section Family History Diabetes mellitus FH: cancer FH: diabetes mellitus FH: heart disease Heart disease Hypertension Kidney disease Kidney stones Social History Smoking Status: Never Smoker Alcohol Use: none Drug Use: none Marital Status: Housing Status: lives with family Occupation Status: unemployed, disabled Current/Historical Medications Scheduled Aripiprazole (Aripiprazole), 20 MG PO HS Calcium Citrate-Vitamin D (Calcium Citrate + D), 1 TAB PO DAILY Chlorpromazine HCl (Chlorpromazine HCl), 25 MG PO TID Clonazepam (Clonazepam), 1 MG PO BID Ferrous Sulfate (Ferrous Sulfate), 325 MG PO DAILY Prazosin Hcl (Prazosin), 2 MG PO HS Ropinirole Hydrochloride (Requip), 1 MG PO TID Vortioxetine HBr (Trintellix), 20 MG PO HS Scheduled PRN Harcbpj-Vyszjlpqphnzz-Xzanvhoh (Excedrin Migraine), 2 TABS PO UD PRN for Headache Chlorzoxazone (Parafon Forte Dsc), 500 MG PO QID PRN for UNDECIDED Diclofenac Sodium (Topical) (Voltaren 1% Top Gel), 1 APPLN TOP QID PRN for Pain Diphenhydramine Hcl (Benadryl Allergy), 50 MG PO HS PRN for Sleep Eszopiclone (Eszopiclone), 2 MG PO HS PRN for Insomnia Oxycodone Ir (Roxicodone Ir), 1-2 TAB PO Q4H PRN for Pain Pentosan Polysulfate Sodium (Elmiron), 100 MG PO TID PRN for UNDECIDED Promethazine HCl (Promethazine HCl), 25 MG PO Q6H PRN for Nausea Allergies Coded Allergies: Banana (Verified Allergy, Severe, ANAPHYLAXIS, 06/06/16) Dog Dander (Verified Allergy, Severe, anaphylactic, 06/06/16) Kiwi (Unverified Allergy, Severe, RESPIRATORY PROBLEMS, 06/06/16) NUTS (Verified Allergy, Severe, difficulty breathing, hives, 06/06/16) Pecan (Unverified Allergy, Severe, ANAPHYLAXIS, 06/06/16) Butorphanol (Verified Allergy, Mild, 06/06/16) Sulfa Antibiotics (Verified Allergy, Mild, `, 06/06/16) Latex (Verified Allergy, Unknown, itchy, 06/06/16) Pistachio (Unverified Allergy, Unknown, ANAPHYLAXIS, 06/06/16) Physical Exam Vital Signs Date Time Temp Pulse Resp B/P Pulse Ox O2 Delivery O2 Flow Rate FiO2 06/06/16 08:01 130/75 06/06/16 06:16 37.0 105 18 113/75 98 Room Air Physical Exam GENERAL: Awake, alert, uncomfortable-appearing, in no distress HENT: Normocephalic, atraumatic. Oropharynx unremarkable. EYES: Normal conjunctiva. Sclera non-icteric. NECK: Supple. No nuchal rigidity. FROM. No JVD. RESPIRATORY: Clear to auscultation. CARDIAC: Regular rate, normal rhythm. Extremities warm and well perfused. Pulses equal. UPPER EXTREMITIES: Atraumatic. LOWER EXTREMITIES: There is bruising and tenderness to the distal second and third toes on the right, no open wounds. The rest of the right foot and leg are atraumatic. Left lower extremity is atraumatic. NEURO: Normal sensorium. No sensory or motor deficits noted. SKIN: No rash or jaundice noted. Medical Decision & Procedures ER Provider Diagnostic Interpretation: X-ray: Per my interpretation, radiologist review. RIGHT SECOND AND THIRD TOE RADIOGRAPHS CLINICAL HISTORY: Right second and third toe pain and bruising status post fall. COMPARISON: None FINDINGS: There are acute minimally displaced avulsion fractures of the dorsal bases of the distal phalanges of the second and third toes with intra-articular extension. There is soft tissue swelling of the toes. No additional fractures are identified. IMPRESSION: Acute minimally displaced avulsion fractures of the dorsal bases of the distal phalanges of the right second and third toes. The findings suggest a hyperflexion injury. Electronically signed by: Roger Pierce M.D. 06/06/2016 7:04 AM Dictated Date/Time: 06/06/2016 7:02 AM Medications Administered Medications (Trade) Dose Ordered Sig/Gary Route Start Time Stop Time Status Last Admin Dose Admin Oxycodone HCl (Roxicodone Immediate Rel Tab) 5 mg NOW STAT PO 06/06/16 07:10 06/06/16 07:14 DC 06/06/16 07:42 5 MG Ibuprofen (Motrin Tab) 600 mg NOW STAT PO 06/06/16 07:10 06/06/16 07:14 DC 06/06/16 07:41 600 MG ED Course 0704: The patient was evaluated in room B10. A complete history and physical exam was performed. 0709: The [place] Prescription Drug Monitoring Program was reviewed for the patient. She is regularly prescribed Benzodiazepines. The patient was counseled on avoiding simultaneous use of benzo and Oxycodone. 0710: Motrin 600 mg PO, Oxycodone IR 5 mg PO. 0745: Discussed the discharge instructions with the patient. She verbalized understanding and agreement of the treatment plan. The patient is ready for discharge. Medical Decision Prior records reviewed and summarized above. Triage Nursing notes reviewed and agree them. Additional history obtained from her . The patient's history was concerning for traumatic injury. Differential diagnosis: Etiologies such as fracture, dislocation, neurovascular compromise, compartment syndrome, soft tissue injury, as well as others were entertained. Physical examination: Consistent with an isolated second and third toe injury. ER treatment provided: Postop shoe Ice Oxycodone Diagnostics interpreted by me: Imaging studies: Xrays as above. Clinically the patient is doing very well. She has flexion injuries causing dorsal fractures of her second and third toes. She will need referral to orthopedics. She was placed in a postop shoe to limit the bending of those toes. She is on chronic Klonopin. I did advise her to use the pain medication sparingly and not at the same time so that there is no significant interaction. I did explain this to her as well. I gave my usual and customary discussion regarding this issue. By the evaluation outlined above emergent etiologies such as open fracture, dislocation, neurovascular compromise, compartment syndrome, infections, as well as others were deemed relatively unlikely. The patient and were informed about the findings as listed above. All questions were answered and they were pleased with the treatment. Return instructions were outlined and the patient was discharged in stable condition. Prescription management: Oxy IR Referral: The patient was referred to [facility] for follow-up care. The chart was completed utilizing [employer] Speech voice recognition software. Grammatical errors, random word insertions, pronoun errors, and incomplete sentences are an occasional consequence of this system due to software limitations, ambient noise, and hardware issues. Any formal questions or concerns about the content, text, or information contained within the body of this dictation should be directly addressed to the physician for clarification. [place] Drug Monitoring Program Search Results: patient reviewed within database Drug Monitoring Findings: She is regularly prescribed Benzodiazepines. Impression Primary Impression: Fracture of multiple toes Scribe Attestation The scribe's documentation has been prepared under my direction and personally reviewed by me in its entirety. I confirm that the note above accurately reflects all work, treatment, procedures, and medical decision making performed by me. Departure Information Dispostion Home / Self-Care Prescriptions Oxycodone Ir (Roxicodone Ir) 5 Mg Tab 1-2 TAB PO Q4H Y for Pain, #12 TAB Prov: Jose Armando Welsh MD 06/06/16 Referrals No Doctor, Assigned (PCP) Forms HOME CARE DOCUMENTATION FORM, IMPORTANT VISIT INFORMATION, WORK / SCHOOL INSTRUCTIONS Patient Instructions My [facility] Additional Instructions ORTHOPEDIC INSTRUCTIONS: DO NOT drive, drink alcohol, operate machinery, or perform dangerous activities today. You were given medications in the ER that can affect your ability to safely function or operate a vehicle. Oxycodone (OxyIR) 5mg: Take 1-2 pills every four hours for breakthrough pain. Avoid alcohol, operating machinery or dangerous equipment, working on ladders or roofs, DRIVING, or situations where being under the influence may be dangerous. It is recommended to use an kuee-sty-wcrueow stool softener such as Colace, 100mg twice daily while taking this medication to avoid constipation. Ibuprofen(Motrin, Advil) may be used for fever or pain. Use 600mg every six hours as needed. Take with food. Avoid using more than 2400mg in a 24 hour period. Do not use 2400mg per day for more than three consecutive days without physician direction. Prolonged inappropriate use can lead to stomach upset or ulcers. (AND/OR) Acetaminophen(Tylenol) may be used for fever or pain. Use 1000mg every six hours as needed. Avoid using more than 4000mg in a 24 hour period. Ice compresses for 20 minutes at a time four times daily for 2-3 days. Rest and elevate your injury. Use the postop shoe as instructed. A cane for stability is recommended. Return to the ER immediately for any numbness, tingling, severe pain, extreme swelling in the extremity or as needed. Call [facility], [phone], today to arrange follow up for your injury. Follow-up with your primary care physician in 2 to 3 days for a recheck of your current condition. Problem Qualifiers Primary Impression: Fracture of multiple toes Fracture type: closed Laterality: right
== END 2016-06-06 08:05 | disposition home or self-care (01) ==
LOC: C.EDB 06:15
DX: S92.531A Displaced fracture of distal phalanx of right lesser toe(s), initial encounter for closed fracture (principal); W10.9XXA Fall (on) (from) unspecified stairs and steps, initial encounter; F41.9 Anxiety disorder, unspecified; F32.9 Major depressive disorder, single episode, unspecified; F43.10 Post-traumatic stress disorder, unspecified; G25.81 Restless legs syndrome; Z98.84 Bariatric surgery status; Z90.710 Acquired absence of both cervix and uterus; Z90.49 Acquired absence of other specified parts of digestive tract; Z83.3 Family history of diabetes mellitus; Z82.49 Family history of ischemic heart disease and other diseases of the circulatory system; Z79.899 Other long term (current) drug therapy

== ENCOUNTER 2016-06-23 18:56 | Emergency (ER) | payer OTHER ==
[~2016-06-23] VITALS: Ht 160 cm; Wt 100.7 kg
[~2016-06-23 18:56] MED LIST changes: +OXYC1TAB3 PO
[2016-06-23 19:03] VITALS: TEMP 36.7; Ht 160 cm; Wt 100.7 kg
[2016-06-23] MEDS ORDERED: HYDROmorphone INJ 2 MG/ML SYR/VIAL IM STA (19:17)
[2016-06-23] MEDS ORDERED: KETOROLAC TROMETHAMINE 60 MG/2 ML VIAL IM STA (19:17)
[2016-06-23] MEDS ORDERED: PROMETHAZINE HCL INJ 25 MG/ML 1 ML VIAL IM STA (19:17)
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
[2016-06-23] MEDS ORDERED: HYDROmorphone INJ 1 MG/ML SYR ONE (19:28)
[2016-06-23 19:45] VITALS: BP 139/86; PULSE 74; O2SAT 95
[2016-06-23] MEDS ORDERED: CHLO50TA6 PO (20:07)
[2016-06-23] MEDS ORDERED: MIRA1TAB3 PO (20:07)
== END 2016-06-23 19:45 | disposition home or self-care (01) ==
LOC: C.EDB 18:57 → C.EDD 19:45
DX: G43.909 Migraine, unspecified, not intractable, without status migrainosus (principal); D64.9 Anemia, unspecified; F41.9 Anxiety disorder, unspecified; F32.9 Major depressive disorder, single episode, unspecified; F43.10 Post-traumatic stress disorder, unspecified; G25.81 Restless legs syndrome; Z98.84 Bariatric surgery status; Z90.711 Acquired absence of uterus with remaining cervical stump; Z79.899 Other long term (current) drug therapy

== ENCOUNTER 2016-06-30 18:56 | Emergency (ER) | payer OTHER ==
[~2016-06-30] VITALS: Ht 160 cm; Wt 101.0 kg
[~2016-06-30 18:56] MED LIST changes: +CHLO50TA6 PO; +MIRA1TAB3 PO; -THR25X PO
[2016-06-30 19:13] VITALS: BP 138/83; PULSE 98; TEMP 36.8; O2SAT 97; Ht 160 cm; Wt 101.0 kg
[2016-06-30] MEDS ORDERED: PROMETHAZINE HCL INJ 25 MG/ML 1 ML VIAL IM STA (19:42)
[2016-06-30] MEDS ORDERED: KETOROLAC TROMETHAMINE 60 MG/2 ML VIAL IM STA (19:42)
[2016-06-30] MEDS ORDERED: HYDROmorphone INJ 2 MG/ML SYR/VIAL IM PRN (19:45)
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
== END 2016-06-30 20:19 | disposition home or self-care (01) ==
LOC: C.EDB 18:57 → C.EDD 20:19
DX: R51 Headache (principal); D64.9 Anemia, unspecified; F41.9 Anxiety disorder, unspecified; F32.9 Major depressive disorder, single episode, unspecified; F43.10 Post-traumatic stress disorder, unspecified; G25.81 Restless legs syndrome; Z98.84 Bariatric surgery status; Z79.899 Other long term (current) drug therapy

== ENCOUNTER 2016-07-13 15:18 | Emergency (ER) | payer OTHER ==
[~2016-07-13] VITALS: Ht 160 cm; Wt 100.0 kg
[2016-07-13 15:23] VITALS: PULSE 102; TEMP 36.6; O2SAT 95; Ht 160 cm; Wt 100.0 kg
[2016-07-13] MEDS ORDERED: HYDROmorphone INJ 2 MG/ML SYR/VIAL IV STA (15:34)
[2016-07-13] MEDS ORDERED: PROMETHAZINE HCL INJ 25 MG/ML 1 ML VIAL IM STA (15:34)
[2016-07-13] MEDS ORDERED: KETOROLAC TROMETHAMINE 60 MG/2 ML VIAL IM STA (15:34)
--- NOTE | 2016-07-13 15:41 | EMERGENCY ROOM VISIT NOTE ---
History First contact with patient: 15:29 Chief Complaint: HEADACHE Stated Complaint: MIGRAINE History of Present Illness The patient is a 45 year old female who presents to the Emergency Room with complaints of migraine headache which started last evening. The patient states is on the left side of her head. She admits to photosensitivity but denies any other visual changes. The patient states she feels a little off balance but denies the room spinning. The patient admits to nausea but denies vomiting. The patient states the symptoms are typical for her migraine headache. This is not the worst headache of her life. Review of Systems 10 system review was performed and was negative unless stated otherwise history of present illness. Past Medical/Surgical History Medical Problems: (1) Anemia (2) Anxiety (3) Cystitides, interstitial, chronic (4) Depression (5) Drug overdose, intentional (6) Migraine (7) PTSD (post-traumatic stress disorder) (8) Restless leg syndrome (9) Suicidal overdose (10) Suicidal overdose (11) Suicide attempt (12) Vertigo Surgical Problems: (1) H/O gastric bypass (2) H/O: hysterectomy (3) History of appendectomy (4) History of tonsillectomy and adenoidectomy (5) Hx of cholecystectomy (6) Previous section Family History Diabetes mellitus FH: cancer FH: diabetes mellitus FH: heart disease Heart disease Hypertension Kidney disease Kidney stones Social History Smoking Status: Never Smoker Alcohol Use: none Drug Use: none Marital Status: Housing Status: lives with family Occupation Status: unemployed, disabled Current/Historical Medications Scheduled Aripiprazole (Aripiprazole), 20 MG PO HS Calcium Citrate-Vitamin D (Calcium Citrate + D), 1 TAB PO DAILY Chlorpromazine Hcl (Thorazine), 50 MG PO TID Clonazepam (Clonazepam), 1 MG PO BID Ferrous Sulfate (Ferrous Sulfate), 325 MG PO DAILY Mirabegron (Myrbetriq Er), 50 MG PO DAILY Prazosin Hcl (Prazosin), 2 MG PO HS Ropinirole Hydrochloride (Requip), 1 MG PO TID Vortioxetine HBr (Trintellix), 20 MG PO HS Scheduled PRN Qghzxqu-Qaovfatzygmpx-Mgovphxm (Excedrin Migraine), 2 TABS PO UD PRN for Headache Chlorzoxazone (Parafon Forte Dsc), 500 MG PO QID PRN for UNDECIDED Diclofenac Sodium (Topical) (Voltaren 1% Top Gel), 1 APPLN TOP QID PRN for Pain Diphenhydramine Hcl (Benadryl Allergy), 50 MG PO HS PRN for Sleep Eszopiclone (Eszopiclone), 2 MG PO HS PRN for Insomnia Oxycodone Ir (Roxicodone Ir), 1-2 TAB PO Q4H PRN for Pain Pentosan Polysulfate Sodium (Elmiron), 100 MG PO TID PRN for UNDECIDED Promethazine HCl (Promethazine HCl), 25 MG PO Q6H PRN for Nausea Allergies Coded Allergies: Banana (Verified Allergy, Severe, ANAPHYLAXIS, 06/06/16) Dog Dander (Verified Allergy, Severe, anaphylactic, 06/06/16) Kiwi (Unverified Allergy, Severe, RESPIRATORY PROBLEMS, 06/06/16) NUTS (Verified Allergy, Severe, difficulty breathing, hives, 06/06/16) Pecan (Unverified Allergy, Severe, ANAPHYLAXIS, 06/06/16) Butorphanol (Verified Allergy, Mild, 06/06/16) Sulfa Antibiotics (Verified Allergy, Mild, `, 06/06/16) Latex (Verified Allergy, Unknown, itchy, 06/06/16) Pistachio (Unverified Allergy, Unknown, ANAPHYLAXIS, 06/06/16) Physical Exam Vital Signs Date Time Temp Pulse Resp B/P Pulse Ox O2 Delivery O2 Flow Rate FiO2 07/13/16 15:23 36.6 102 16 95 Room Air Physical Exam GENERAL: 45-year-old white female appears lying in a darkened room in no acute distress. MENTAL STATUS: Patient is alert and oriented x3 EYES: PERRLA. EOMs intact. EARS: Canals clear. TMs without fluid level noted. NECK: Supple, no lymphadenopathy noted. No carotid bruits noted. LUNGS: Clear auscultation without wheezes rales or rhonchi. CARDIAC: Regular rate and rhythm without murmur. Pulses is full and equal throughout. ABDOMEN: Positive bowel sounds all 4 quadrants. Soft, nontender to palpation without organomegaly or masses. NEURO:Cranial nerves two through 12 intact. Cerebellar function intact with szguyf-qo-fqoo. Fine motor intact with alternating finger motions. Medical Decision & Procedures ED Course The patient was evaluated. The patient EMR was reviewed as well as her medication list. The patient is on are 2 injection per month treatment was for her migraine headaches. The patient was given her normal treatment regimen of Phenergan 25 mg, Toradol 60 mg and Dilaudid 2 mg IM. The patient was reevaluated was feeling better. The patient was discharged home with her driving. Medical Decision Differential includes: Acute intracranial bleed, trauma, meningitis, encephalitis, increased intracranial pressure, mass or mass effect, facial or dental infection, temporal arteritis, CVA, TIA, acute hypertensive emergency, sinusitis, carbon monoxide exposure. The patient presented with her typical migraine headache symptoms therefore no additional diagnostic imaging was performed. Impression Primary Impression: Migraine Departure Information Dispostion Home / Self-Care Condition GOOD Referrals No Doctor, Assigned (PCP) Forms HOME CARE DOCUMENTATION FORM, IMPORTANT VISIT INFORMATION Patient Instructions ED Headache Migraine, [facility] Additional Instructions Go home and rest in a dark room. Do not drive for the remainder of the day. Continue all medications as prescribed. If symptoms are more frequent recommend follow-up with your family physician and/or neurologist. If symptoms worsen, return to ER. Problem Qualifiers Primary Impression: Migraine Migraine type: unspecified Intractability: intractable
== END 2016-07-13 16:06 | disposition home or self-care (01) ==
LOC: C.EDB 15:21 → C.EDD 16:06
DX: G43.909 Migraine, unspecified, not intractable, without status migrainosus (principal); D64.9 Anemia, unspecified; F41.9 Anxiety disorder, unspecified; F32.9 Major depressive disorder, single episode, unspecified; F43.10 Post-traumatic stress disorder, unspecified; G25.81 Restless legs syndrome; Z98.84 Bariatric surgery status; Z83.3 Family history of diabetes mellitus; Z80.9 Family history of malignant neoplasm, unspecified; Z82.49 Family history of ischemic heart disease and other diseases of the circulatory system; Z84.1 Family history of disorders of kidney and ureter; Z79.899 Other long term (current) drug therapy

== ENCOUNTER 2016-07-26 11:25 | Emergency (ER) | payer OTHER ==
[~2016-07-26] VITALS: Ht 160 cm; Wt 100.2 kg
[~2016-07-26 11:25] MED LIST changes: -OXYC1TAB3 PO
[2016-07-26 11:28] VITALS: TEMP 36.7; Ht 160 cm; Wt 100.2 kg
[2016-07-26] MEDS ORDERED: KETOROLAC TROMETHAMINE 60 MG/2 ML VIAL IM STA (11:36)
[2016-07-26] MEDS ORDERED: PROMETHAZINE HCL INJ 25 MG/ML 1 ML VIAL IM STA (11:36)
[2016-07-26] MEDS ORDERED: HYDROmorphone INJ 2 MG/ML SYR/VIAL IM STA (11:36)
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
[2016-07-26 12:25] VITALS: BP 126/78; PULSE 72; O2SAT 98
== END 2016-07-26 12:30 | disposition home or self-care (01) ==
LOC: C.EDB 11:27 → C.EDA 12:30
DX: G43.909 Migraine, unspecified, not intractable, without status migrainosus (principal); D64.9 Anemia, unspecified; F41.9 Anxiety disorder, unspecified; F32.9 Major depressive disorder, single episode, unspecified; F43.10 Post-traumatic stress disorder, unspecified; G25.81 Restless legs syndrome; Z90.711 Acquired absence of uterus with remaining cervical stump; Z98.84 Bariatric surgery status; Z90.49 Acquired absence of other specified parts of digestive tract; Z79.899 Other long term (current) drug therapy

== ENCOUNTER 2016-08-09 09:25 | Emergency (ER) | payer OTHER ==
[~2016-08-09] VITALS: Ht 160 cm; Wt 100.5 kg
[~2016-08-09 09:25] MED LIST changes: -CALC-279 PO; -CHLOTAB3 PO
[2016-08-09 09:26] VITALS: TEMP 36.4; Ht 160 cm; Wt 100.5 kg
[2016-08-09] MEDS ORDERED: PROMETHAZINE HCL INJ 25 MG/ML 1 ML VIAL IM STA (10:24)
[2016-08-09] MEDS ORDERED: KETOROLAC TROMETHAMINE 60 MG/2 ML VIAL IM STA (10:24)
[2016-08-09] MEDS ORDERED: HYDROmorphone INJ 2 MG/ML SYR/VIAL IM STA (10:24)
--- NOTE | 2016-08-09 11:24 | EMERGENCY ROOM VISIT NOTE ---
History First contact with patient: 09:39 Chief Complaint: HEADACHE Stated Complaint: MIGRAINE, NAUSEA History of Present Illness CHIEF COMPLAINT: Migraine headache HISTORY OF PRESENT ILLNESS: This 45 year old female who presents to the Emergency Room with complaints of migraine headache for the past several days, with a gradual onset of a severe generalized headache. The patient states the migraine is similar to their typical migraines. There has been associated photophobia, phonophobia, nausea and vomiting. The patient denies fever or chills recently, and there is no weakness or numbness of the extremities. There is no difficulty with speech or vision. No trauma to the head and no neck pain. The pain is severe, constant, and it is slowly increasing in severity. The patient rates the pain as throbbing and 10/10. The patient has taken Excedrin Migraine, which she states has not helped at all. This is not the worst headache of the life and is similar to previous migraines. Previous imaging studies of the brain have been normal. Patient readily states that she is on an ED treatment plan for her migraines, reporting Dilaudid, Toradol, Phenergan IM injections. Review of Systems REVIEW OF SYSTEMS: A review of systems was performed with positives and pertinent negatives listed in the history of present illness. All other systems were reviewed and are negative. Past Medical/Surgical History Medical Problems: (1) Anemia (2) Anxiety (3) Cystitides, interstitial, chronic (4) Depression (5) Drug overdose, intentional (6) Migraine (7) PTSD (post-traumatic stress disorder) (8) Restless leg syndrome (9) Suicidal overdose (10) Suicidal overdose (11) Suicide attempt (12) Vertigo Surgical Problems: (1) H/O gastric bypass (2) H/O: hysterectomy (3) History of appendectomy (4) History of tonsillectomy and adenoidectomy (5) Hx of cholecystectomy (6) Previous section Family History Diabetes mellitus FH: cancer FH: diabetes mellitus FH: heart disease Heart disease Hypertension Kidney disease Kidney stones Social History Smoking Status: Never Smoker Alcohol Use: none Drug Use: none Marital Status: Housing Status: lives with family Occupation Status: unemployed, disabled Current/Historical Medications Scheduled Aripiprazole (Aripiprazole), 20 MG PO HS Chlorpromazine Hcl (Thorazine), 50 MG PO TID Clonazepam (Clonazepam), 1 MG PO BID Ferrous Sulfate (Ferrous Sulfate), 325 MG PO DAILY Mirabegron (Myrbetriq Er), 50 MG PO DAILY Prazosin Hcl (Prazosin), 2 MG PO HS Ropinirole Hydrochloride (Requip), 1 MG PO TID Vortioxetine HBr (Trintellix), 20 MG PO HS Scheduled PRN Bnbtplh-Qkuaavlbmwfcp-Uepypgay (Excedrin Migraine), 2 TABS PO UD PRN for Headache Diclofenac Sodium (Topical) (Voltaren 1% Top Gel), 1 APPLN TOP QID PRN for Pain Diphenhydramine Hcl (Benadryl Allergy), 50 MG PO HS PRN for Sleep Eszopiclone (Eszopiclone), 2 MG PO HS PRN for Insomnia Pentosan Polysulfate Sodium (Elmiron), 100 MG PO TID PRN for UNDECIDED Promethazine HCl (Promethazine HCl), 25 MG PO Q6H PRN for Nausea Allergies Coded Allergies: Banana (Verified Allergy, Severe, ANAPHYLAXIS, 08/09/16) Dog Dander (Verified Allergy, Severe, anaphylactic, 08/09/16) Kiwi (Unverified Allergy, Severe, RESPIRATORY PROBLEMS, 08/09/16) NUTS (Verified Allergy, Severe, difficulty breathing, hives, 08/09/16) Pecan (Unverified Allergy, Severe, ANAPHYLAXIS, 08/09/16) Butorphanol (Verified Allergy, Mild, 08/09/16) Sulfa Antibiotics (Verified Allergy, Mild, `, 08/09/16) Latex (Verified Allergy, Unknown, itchy, 08/09/16) Pistachio (Unverified Allergy, Unknown, ANAPHYLAXIS, 08/09/16) Physical Exam Vital Signs Date Time Temp Pulse Resp B/P (MAP) Pulse Ox O2 Delivery O2 Flow Rate FiO2 08/09/16 11:38 71 14 132/87 94 08/09/16 10:42 66 18 112/58 96 Room Air 08/09/16 09:26 36.4 90 18 148/82 97 Room Air Physical Exam PHYSICAL EXAM: Vital Signs: Reviewed Nurse's notes, vital signs stable. GENERAL : Alert and cooperative, resting comfortably in the stretcher in a dark room with sunglasses on, who appears in pain, but non toxic in appearance and in no acute distress. MENTAL STATUS: Alert, oriented, and coherent. HEENT: Normocephalic. PERRLA. EOMI. Nares patent without nuchal rigidity. Tympanic membranes pearly estrada without erythema or effusion bilaterally. Mucous membranes moist. NECK: Supple, no nuchal rigidity, nontender, no lymphadenopathy. HEART: Regular rhythm and normal rate without murmurs, ectopy, gallops, or rubs. LUNGS: Clear to auscultation bilaterally without wheezes, rales or rhonchi. No dullness to percussion. No accessory muscle use. No retractions. SKIN: Normal. NEUROLOGICAL: Pupils are round, equal and react to light. The optic fundi are normal and the discs are flat. The patient moves all extremities well and the gait is normal. Medical Decision & Procedures Medications Administered Medications (Trade) Dose Ordered Sig/Gary Route Start Time Stop Time Status Last Admin Dose Admin Hydromorphone HCl (Dilaudid Inj) 2 mg NOW STAT IM 08/09/16 10:24 08/09/16 10:26 DC 08/09/16 10:47 2 MG Ketorolac Tromethamine (Toradol Inj) 60 mg NOW STAT IM 08/09/16 10:24 08/09/16 10:26 DC 08/09/16 10:48 60 MG Promethazine HCl (Phenergan Inj) 25 mg NOW STAT IM 08/09/16 10:24 08/09/16 10:26 DC 08/09/16 10:48 25 MG Medical Decision EMERGENCY DEPARTMENT COURSE: I examined the patient. The patient is on a 2 narcotic injection per month treatment plan for their migraines. The patient was discussed with Dr. Han, specifically regarding my concern for use of narcotic medication to manage chronic migraines, she requested that I follow the ED treatment plan with this patient. The patient was given IM Dilaudid 2 mg , IM Toradol, IM Phenergan per their usual protocol. The differential diagnosis includes acute intracranial bleed, meningitis, encephalitis, mass or mass effect, sinusitis, infection, tumor, headache, temporal arteritis and carbon monoxide exposure, and migraine. Given the patient's exam and presentation, this seems consistent with her previous migraines. She did have good improvement in her migraine headache following treatment. I did discuss with the patient the importance of following closely with her neurologist for ongoing management of her migraine headaches. The patient was discharged home in stable condition with her daughter driving. Impression Primary Impression: Migraine Departure Information Dispostion Home / Self-Care Condition GOOD Referrals Milagro Steiner (PCP) Patient Instructions ED Headache Migraine, My [facility] Additional Instructions You have been treated in the Emergency Department for a Headache. You have received narcotic pain medicine in the emergency department which impairs your ability to operate a vehicle. It is illegal for you to drive after receiving these medicines. Drink plenty of fluids to stay well hydrated. For pain control, you can use the following laul-vhn-bawzucs medicines (if >12 yo): - Regular strength (325mg/tab) Tylenol (acetaminophen) 2 tabs every 6 hours as needed. Do not exceed 8 tablets in a 24 hour period. Avoid taking more than 3 grams (3000 mg) of Tylenol per day. This includes any other sources of acetaminophen you may take on a regular basis. - Regular strength (200 mg/tab) Advil (ibuprofen) 1-2 tabs every 4-6 hours as needed. Do not exceed a dose of 3200 mg per day. You should relax in a quiet, dark place for the rest of the day. Avoid any possible triggers including: cigarette smoke, caffeine, nicotine, chocolate, wine, beer, loud noises or music, or bright lights. You should schedule a follow-up appointment in 2-3 days with your Primary Care Provider or established Neurologist for further evaluation and treatment of your Headache. Return to the Emergency Department if your current symptoms worsen despite treatment course outlined above, or if you develop any of the following symptoms : intractable pain despite aforementioned treatment course, visual disturbances , loss of vision, unilateral weakness or facial drooping, slurring of speech, loss of coordination, or loss of consciousness.
[2016-08-09 11:38] VITALS: BP 132/87; PULSE 71; O2SAT 94
== END 2016-08-09 11:35 | disposition home or self-care (01) ==
LOC: C.EDB 09:26
DX: G43.909 Migraine, unspecified, not intractable, without status migrainosus (principal); F41.9 Anxiety disorder, unspecified; F32.9 Major depressive disorder, single episode, unspecified; R45.1 Restlessness and agitation; Z90.49 Acquired absence of other specified parts of digestive tract; Z90.710 Acquired absence of both cervix and uterus; Z98.84 Bariatric surgery status; Z98.890 Other specified postprocedural states; Z79.899 Other long term (current) drug therapy; Z88.2 Allergy status to sulfonamides; Z88.8 Allergy status to other drugs, medicaments and biological substances; Z91.010 Allergy to peanuts; Z91.018 Allergy to other foods; Z91.040 Latex allergy status; Z91.09 Other allergy status, other than to drugs and biological substances; Z83.3 Family history of diabetes mellitus; Z80.9 Family history of malignant neoplasm, unspecified; Z82.49 Family history of ischemic heart disease and other diseases of the circulatory system; Z84.1 Family history of disorders of kidney and ureter

== ENCOUNTER 2016-08-28 18:57 | Emergency (ER) | payer OTHER ==
[~2016-08-28] VITALS: Ht 160 cm; Wt 99.2 kg
[2016-08-28 19:07] VITALS: TEMP 36.6; Ht 160 cm; Wt 99.2 kg
[2016-08-28] MEDS ORDERED: HYDROmorphone INJ 2 MG/ML SYR/VIAL IM STA (19:45)
[2016-08-28] MEDS ORDERED: KETOROLAC TROMETHAMINE 60 MG/2 ML VIAL IM STA (19:45)
[2016-08-28] MEDS ORDERED: PROMETHAZINE HCL INJ 25 MG/ML 1 ML VIAL IM STA (19:45)
--- NOTE | 2016-08-28 20:22 | EMERGENCY ROOM VISIT NOTE ---
History Report prepared by Daniela: Kelly Goodwin Under the Supervision of: Dr. Talat Quintero M.D. First contact with patient: 19:44 Chief Complaint: HEADACHE Stated Complaint: MIGRAINE History of Present Illness The patient is a 45 year old female who presents to the Emergency Room with complaints of constant headache beginning this morning. The patient has a history of migraine headaches and states that this feels like her typical migraine. Light exacerbates her pain. She rates her current pain as a 10/10 in severity. She denies any neck pain. Source of History: patient Onset: this morning Position: head Symptom Intensity: 10/10 Timing: constant Modifying Factors (Worsening): other (light) Associated Symptoms: No neck pain Review of Systems See HPI for pertinent positives & negatives. A total of 10 systems reviewed and were otherwise negative. Past Medical & Surgical Medical Problems: (1) Anemia (2) Anxiety (3) Cystitides, interstitial, chronic (4) Depression (5) Drug overdose, intentional (6) Migraine (7) PTSD (post-traumatic stress disorder) (8) Restless leg syndrome (9) Suicidal overdose (10) Suicidal overdose (11) Suicide attempt (12) Vertigo Surgical Problems: (1) H/O gastric bypass (2) H/O: hysterectomy (3) History of appendectomy (4) History of tonsillectomy and adenoidectomy (5) Hx of cholecystectomy (6) Previous section Family History Diabetes mellitus FH: cancer FH: diabetes mellitus FH: heart disease Heart disease Hypertension Kidney disease Kidney stones Social History Smoking Status: Never Smoker Alcohol Use: none Drug Use: none Marital Status: Housing Status: lives with family Occupation Status: unemployed, disabled Current/Historical Medications Scheduled Aripiprazole (Aripiprazole), 20 MG PO HS Chlorpromazine Hcl (Thorazine), 50 MG PO TID Clonazepam (Clonazepam), 1 MG PO BID Ferrous Sulfate (Ferrous Sulfate), 325 MG PO DAILY Mirabegron (Myrbetriq Er), 50 MG PO DAILY Prazosin Hcl (Prazosin), 2 MG PO HS Ropinirole Hydrochloride (Requip), 1 MG PO TID Vortioxetine HBr (Trintellix), 20 MG PO HS Scheduled PRN Vyvtmdk-Tglfzoscnzoqk-Laqbbryo (Excedrin Migraine), 2 TABS PO UD PRN for Headache Diclofenac Sodium (Topical) (Voltaren 1% Top Gel), 1 APPLN TOP QID PRN for Pain Diphenhydramine Hcl (Benadryl Allergy), 50 MG PO HS PRN for Sleep Eszopiclone (Eszopiclone), 2 MG PO HS PRN for Insomnia Pentosan Polysulfate Sodium (Elmiron), 100 MG PO TID PRN for UNDECIDED Promethazine HCl (Promethazine HCl), 25 MG PO Q6H PRN for Nausea Allergies Coded Allergies: Banana (Verified Allergy, Severe, ANAPHYLAXIS, 08/28/16) Dog Dander (Verified Allergy, Severe, anaphylactic, 08/28/16) Kiwi (Verified Allergy, Severe, RESPIRATORY PROBLEMS, 08/28/16) NUTS (Verified Allergy, Severe, difficulty breathing, hives, 08/28/16) Pecan (Verified Allergy, Severe, ANAPHYLAXIS, 08/28/16) Butorphanol (Verified Allergy, Mild, 08/28/16) Sulfa Antibiotics (Verified Allergy, Mild, `, 08/28/16) Latex (Verified Allergy, Unknown, itchy, 08/28/16) Pistachio (Verified Allergy, Unknown, ANAPHYLAXIS, 08/28/16) Physical Exam Vital Signs Date Time Temp Pulse Resp B/P (MAP) Pulse Ox O2 Delivery O2 Flow Rate FiO2 08/28/16 22:13 96 16 132/82 93 Room Air 08/28/16 21:04 61 18 135/92 96 08/28/16 19:07 36.6 94 18 143/87 96 Room Air Physical Exam GENERAL: Patient is a healthy-appearing well-nourished middle-aged female. HEAD: Normocephalic atraumatic, no signs of meningitis or encephalitis. EYES: Ocular movements intact pupils equal and react to light OROPHARYNX mucous membranes are moist no exudates present no erythema or edema present NECK: Supple no nuchal rigidity CHEST: Good equal expansion LUNGS: Clear and equal to auscultation CARDIAC: Normal S1 and S2 ABDOMEN: Soft nontender no guarding BACK: No CVA tenderness EXTREMITIES: No pain upon palpation normal muscle strength in all groups no clubbing cyanosis or edema NEURO: Patient is following commands and answering questions appropriately. Alert and oriented x3 Cranial Nerves 2-12 grossly intact Medical Decision & Procedures Medications Administered Medications (Trade) Dose Ordered Sig/Gary Route Start Time Stop Time Status Last Admin Dose Admin Hydromorphone HCl (Dilaudid Inj) 2 mg NOW STAT IM 08/28/16 19:45 08/28/16 19:47 DC 08/28/16 20:53 2 MG Ketorolac Tromethamine (Toradol Inj) 60 mg NOW STAT IM 08/28/16 19:45 08/28/16 19:47 DC 08/28/16 19:45 60 MG Promethazine HCl (Phenergan Inj) 25 mg NOW STAT IM 08/28/16 19:45 08/28/16 19:47 DC 08/28/16 20:53 25 MG ED Course 1943: Past medical records reviewed. The patient was evaluated in room B9. A complete history and physical examination was performed. 1944: Phenergan 25 mg IM, Toradol 60 mg IM, Dilaudid 2 mg IM 2043: I reassessed the patient at this time. She is still in pain and uncomfortable as she has not received her medications yet. 2156: I reassessed the patient at this time. She is feeling better and resting comfortably. I discussed the results and treatment plan with the patient. I answered all pertaining questions that she had. She expressed understanding and verbalized agreement. The patient will be discharged home. Medical Decision Differential diagnosis: Etiologies such as migraine headache, meningitis, sinusitis, CO exposure, ICH, SAH, infection, tumor, headache, sinus thrombosis, arterial dissection, as well as others were entertained. Medication Reconciliation: I attest that I have personally reviewed the patient' s current medication list Blood Pressure Screening: Patient was found to have an elevated blood pressure and was referred to their primary care doctor for recheck and further treatment. This is a 45-year-old female who presents emergency department complaining of severe headache. The patient has no evidence of meningitis encephalitis on examination. I do believe that the patient can be safely discharged home after receiving her migraine cocktail Dilaudid, Toradol, Phenergan. Patient family were in agreement with the treatment plan. Impression Primary Impression: Migraine Scribe Attestation The scribe's documentation has been prepared under my direction and personally reviewed by me in its entirety. I confirm that the note above accurately reflects all work, treatment, procedures, and medical decision making performed by me. Departure Information Dispostion Home / Self-Care Referrals No Doctor, Assigned (PCP) Milagro Steiner Forms HOME CARE DOCUMENTATION FORM, IMPORTANT VISIT INFORMATION Patient Instructions ED Headache Migraine, My [facility] Additional Instructions You were found to have an elevated blood pressure today (>120 sytolic or >90 diastolic). Per medicare guidelines, you need to follow up with this blood pressure screening with your Primary Care Physician (PCP). For a new PCP call [phone]. You received narcotic or benzodiazepene medication while in the emergency room today. Do not drive, operate heavy machinery, or drink alcohol under the influence of this medication. You have been examined and treated today on an emergency basis only. This is not a substitute for, or an effort to provide, complete comprehensive medical care. It is impossible to recognize and treat all injuries or illnesses in a single emergency department visit. It is therefore important that you follow up closely with Dr Steiner. Call as soon as possible for an appointment. Thank you for your time and consideration. I look forward to speaking with you again soon. Please don't hesitate to call us if you have any questions.
[2016-08-28 22:13] VITALS: BP 132/82; PULSE 96; O2SAT 93
== END 2016-08-28 22:13 | disposition home or self-care (01) ==
LOC: C.EDB 18:58
DX: G43.909 Migraine, unspecified, not intractable, without status migrainosus (principal); F41.9 Anxiety disorder, unspecified; F32.9 Major depressive disorder, single episode, unspecified; D64.9 Anemia, unspecified; Z90.710 Acquired absence of both cervix and uterus; Z90.49 Acquired absence of other specified parts of digestive tract; Z98.890 Other specified postprocedural states; Z98.84 Bariatric surgery status; Z79.899 Other long term (current) drug therapy; Z88.2 Allergy status to sulfonamides; Z88.8 Allergy status to other drugs, medicaments and biological substances; Z91.018 Allergy to other foods; Z91.040 Latex allergy status; Z83.3 Family history of diabetes mellitus; Z80.9 Family history of malignant neoplasm, unspecified; Z82.49 Family history of ischemic heart disease and other diseases of the circulatory system; Z84.1 Family history of disorders of kidney and ureter

== ENCOUNTER 2016-09-20 19:47 | Emergency (ER) | payer OTHER ==
[~2016-09-20] VITALS: Ht 160 cm; Wt 98.4 kg
[2016-09-20 19:52] VITALS: TEMP 36.3; Ht 160 cm; Wt 98.4 kg
[2016-09-20] MEDS ORDERED: KETOROLAC TROMETHAMINE 60 MG/2 ML VIAL IM STA (20:08)
[2016-09-20] MEDS ORDERED: PROMETHAZINE HCL INJ 25 MG/ML 1 ML VIAL IM STA (20:08)
[2016-09-20] MEDS ORDERED: HYDROmorphone INJ 2 MG/ML SYR/VIAL IM STA (20:08)
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
[2016-09-20] MEDS ORDERED: IBUP-1050 PO (20:26)
[2016-09-20 20:39] VITALS: BP 160/73; PULSE 69; O2SAT 96
== END 2016-09-20 20:41 | disposition home or self-care (01) ==
LOC: C.EDB 19:48 → C.EDD 20:41
DX: G43.909 Migraine, unspecified, not intractable, without status migrainosus (principal); D64.9 Anemia, unspecified; N30.10 Interstitial cystitis (chronic) without hematuria; F32.9 Major depressive disorder, single episode, unspecified; F43.10 Post-traumatic stress disorder, unspecified; G25.81 Restless legs syndrome

== ENCOUNTER 2016-09-30 17:07 | Emergency (ER) | payer OTHER ==
[~2016-09-30] VITALS: Ht 160 cm; Wt 98.9 kg
[~2016-09-30 17:07] MED LIST changes: +IBUP-1050 PO
[2016-09-30 17:11] VITALS: TEMP 36.7; Ht 160 cm; Wt 98.9 kg
[2016-09-30] MEDS ORDERED: KETOROLAC TROMETHAMINE 60 MG/2 ML VIAL IM STA (17:24)
[2016-09-30] MEDS ORDERED: PROMETHAZINE HCL INJ 25 MG/ML 1 ML VIAL IM STA (17:24)
[2016-09-30] MEDS ORDERED: HYDROmorphone INJ 2 MG/ML SYR/VIAL IM ONE (17:30)
[2016-09-30 18:03] VITALS: BP 118/75; PULSE 81; O2SAT 95
--- NOTE | 2016-09-30 23:39 | EMERGENCY ROOM VISIT NOTE ---
ED Visit Note First contact with patient: 17:14 CHIEF COMPLAINT: Migraine headache HISTORY OF PRESENT ILLNESS: Ms. Hurt is a 46 year-old white female who ambulates into the ED accompanied by a male friend complaining of a migraine headache. She reports a gradual onset of a severe migraine headache that started approximately 1 days ago. The pain is constant and it is slowly increasing in severity. This is not the worst headache of the life and is similar to previous migraines. Currently she describes the headache as a pressure sensation/pain in the left frontal area behind the eye and radiating into the right parietal area. She rates the pain a 10/10. She has not identified any aggravating or alleviating factors related to pain. She reports taking ibuprofen and Phenergan without relief of her symptoms. There is been associated light and smell sensitivity, right sided facial paresthesias, nausea with vomiting. She denies fever, chills, sweats, skin eruptions, skin color changes, dizziness , lightheadedness, recent head trauma, hearing changes, difficulty speaking, difficulty swallowing, difficulty ambulating/coronary body movements, neck pain/ stiffness, upper respiratory tract symptoms, sinus infection, runny nose, sore throat, recent dental trauma/dental work, extremity weakness/numbness/tingling, chest pain shortness of breath, abdominal pain. REVIEW OF SYSTEMS: As noted above in History of Present Illness. All body systems were reviewed with this patient and found to be negative unless noted above otherwise. PAST MEDICAL HISTORY: (1) Anemia (2) Anxiety (3) Cystitides, interstitial, chronic (4) Depression (5) Drug overdose, intentional (6) Migraine (7) PTSD (post-traumatic stress disorder) (8) Restless leg syndrome (9) Suicidal overdose (10) Suicidal overdose (11) Suicide attempt (12) Vertigo Surgical Problems: (1) H/O gastric bypass (2) H/O: hysterectomy (3) History of appendectomy (4) History of tonsillectomy and adenoidectomy (5) Hx of cholecystectomy (6) Previous section CURRENT MEDICATIONS: Medications Dose Route/Sig Max Daily Dose Days Date Category Advil (Ibuprofen) 200 Mg Tab 600 Mg PO DAILY 09/20/16 Reported Myrbetriq Er (Mirabegron) 50 Mg Tab 50 Mg PO DAILY 06/23/16 Reported Thorazine (Chlorpromazine Hcl) 50 Mg Tab 50 Mg PO TID 06/23/16 Reported Aripiprazole 20 Mg Tab 20 Mg PO HS 04/17/16 Reported Clonazepam 1 Mg Tab 1 Mg PO BID 04/17/16 Reported Prazosin (Prazosin Hcl) 1 Mg Cap 2 Mg PO HS 04/17/16 Reported Promethazine HCl 25 Mg Tab 25 Mg PO Q6H PRN 12/12/15 Reported Trintellix (Vortioxetine HBr) 20 Mg Tab 20 Mg PO HS 11/06/15 Reported Eszopiclone 2 Mg Tab 2 Mg PO HS PRN 09/28/15 Reported Benadryl Allergy (Diphenhydramine Hcl) 25 Mg Cap 50 Mg PO HS PRN 07/18/15 Reported Excedrin Migraine (Chcazzw-Tvakukfmhvofy-Ytnzurui) 1 Tab Tab 2 Tabs PO UD PRN 05/19/15 Reported Elmiron (Pentosan Polysulfate Sodium) 100 Mg Cap 100 Mg PO TID PRN 03/28/15 Reported Voltaren 1% Top Gel (Diclofenac Sodium (Topical)) 1 % Gel 1 Appln TOP QID PRN 03/28/15 Reported Ferrous Sulfate 325 Mg Tab 325 Mg PO DAILY 03/28/15 Reported Requip (Ropinirole Hydrochloride) 0.5 Mg Tab 1 Mg PO TID 03/28/15 Reported ALLERGIES TO MEDICATIONS: Latex, sulfa, butorphanol. SOCIAL HISTORY: Patient is not currently employed; she feels safe in her home environment; she denies tobacco and alcohol use. PHYSICAL EXAM: Vital Signs: Date Time Temp Pulse Resp B/P (MAP) Pulse Ox O2 Delivery O2 Flow Rate FiO2 09/30/16 18:03 81 16 118/75 95 09/30/16 17:11 36.7 95 16 136/84 95 Room Air GENERAL: 46 year-old white female in moderate distress due to pain, afebrile and hemodynamically stable. Found lying in a darkened room with sunglasses on. NEUROLOGIC: Awake, alert and oriented to person place and time. Answering questions appropriately and following commands. Cranial nerves II-XII grossly intact. No focal neurologic deficits noted. Normal gait. Good hand eye coordination. Good short-term and long-term recall. SKIN: Warm, dry and pink. No rashes, lesions or soft tissue trauma noted. HEENT: Normocephalic, atraumatic. PERRLA. EOMI without nystagmus. Sclera is white and conjunctiva pink without drainage. Funduscopic examination was deferred due to light sensitivity. External ears are nontender. Auditory canals are pink and patent. Tympanic membranes are pearly estrada with normal light reflex. Oral cavity is moist and pink. Uvula is midline and no abscesses are seen. No posterior pharyngeal erythema or edema. NECK: Soft and supple. No tenderness through the central cervical region or cervical musculature. No nuchal rigidity. No lymphadenopathy, jugular venous distention, or bruits noted. THORAX: Lungs clear to auscultation and equal bilaterally with no wheezing, crackles, rhonchi or stridor and equal chest wall movements. HEART: Regular rate and rhythm with no murmurs, rubs or gallops. ABDOMEN: Soft and nontender with bowel sounds present in all quadrants; no rigidity, rebound tenderness, organomegaly or guarding. MUSCULOSKELETAL: Full range of motion of all joints without any significant discomfort and the gait is normal. ED COURSE: Patient is assessed with history and physical examination. Patient was given 2 mg of the Dilaudid IM and 60 mg of Toradol IM for the pain and 25 mg of Phenergan IM nausea. Patient was reassessed. Patient was educated about her condition and instructed on her treatment plan; she verbalized understanding and agreement with this plan. CLINICAL IMPRESSION: Migraine headache. DECISION MAKIN-year-old female who presents for evaluation of headache. She is afebrile, well appearing, and hemodynamically stable. She has no signs of a sinus, dental , or ear infection and no evidence of meningismus. She is neurologically intact. I do not suspect a headache to be secondary to a subarachnoid hemorrhage, meningitis, encephalitis, or intracranial mass lesion. DISPOSITION: Patient was discharged to home in stable condition accompanied by her ; prior to departure she was reassessed and subjectively reported she was feeling minimally better and reported she was feeling much better and rated her discomfort 6/10. DISCHARGE INSTRUCTIONS: Rest at home, in a quiet darkened room and allow the medication to work for the pain. Continue to follow up current treatment plan prescribed by your physician for your migraine headaches. See your own doctor in follow-up this week for continued care and treatment. Return to the emergency department as needed for worsening/uncontrolled pain, any abnormal neurological symptoms, fevers or in accordance with her pain management plan.
== END 2016-09-30 18:05 | disposition home or self-care (01) ==
LOC: C.EDB 17:08 → C.EDD 18:05
DX: G43.909 Migraine, unspecified, not intractable, without status migrainosus (principal); Z91.5 Personal history of self-harm; Z98.84 Bariatric surgery status; G25.81 Restless legs syndrome; F32.9 Major depressive disorder, single episode, unspecified; F41.9 Anxiety disorder, unspecified; Z90.710 Acquired absence of both cervix and uterus; Z90.89 Acquired absence of other organs; Z90.49 Acquired absence of other specified parts of digestive tract; Z98.891 History of uterine scar from previous surgery; Z79.899 Other long term (current) drug therapy

== ENCOUNTER 2016-10-11 11:38 | Emergency (ER) | payer OTHER ==
[~2016-10-11] VITALS: Ht 160 cm; Wt 98.2 kg
[2016-10-11 11:42] VITALS: TEMP 36.7; Ht 160 cm; Wt 98.2 kg
[2016-10-11] MEDS ORDERED: KETOROLAC TROMETHAMINE 60 MG/2 ML VIAL IM STA (11:53)
[2016-10-11] MEDS ORDERED: HYDROmorphone INJ 2 MG/ML SYR/VIAL IM STA (11:53)
[2016-10-11] MEDS ORDERED: PROMETHAZINE HCL INJ 25 MG/ML 1 ML VIAL IM STA (11:53)
--- NOTE | 2016-10-11 12:01 | EMERGENCY ROOM VISIT NOTE ---
History First contact with patient: 11:48 Chief Complaint: HEADACHE Stated Complaint: MIGRAINE, NAUSEA History of Present Illness The patient is a 46 year old female who presents to the Emergency Room with complaints of migraine headache which started yesterday morning. The patient states the headache is on the left side of her head which is typical for her migraines. The patient admits to photosensitivity and blurred vision. She admits to nausea but denies any vomiting. The patient states that all symptoms are typical for her migraines. This is not the worst headache of her life. The patient states that she took Excedrin Migraine at home without any relief. She is followed by both her PCP and a neurologist for her migraines. Review of Systems 6 system review was performed and was negative unless stated otherwise in history of present illness. Past Medical/Surgical History Medical Problems: (1) Anemia (2) Anxiety (3) Cystitides, interstitial, chronic (4) Depression (5) Drug overdose, intentional (6) Migraine (7) PTSD (post-traumatic stress disorder) (8) Restless leg syndrome (9) Suicidal overdose (10) Suicidal overdose (11) Suicide attempt (12) Vertigo Surgical Problems: (1) H/O gastric bypass (2) H/O: hysterectomy (3) History of appendectomy (4) History of tonsillectomy and adenoidectomy (5) Hx of cholecystectomy (6) Previous section Family History Diabetes mellitus FH: cancer FH: diabetes mellitus FH: heart disease Heart disease Hypertension Kidney disease Kidney stones Social History Smoking Status: Never Smoker Alcohol Use: none Drug Use: none Marital Status: Housing Status: lives with family Occupation Status: unemployed, disabled Current/Historical Medications Scheduled Aripiprazole (Aripiprazole), 20 MG PO HS Chlorpromazine Hcl (Thorazine), 50 MG PO TID Clonazepam (Clonazepam), 1 MG PO BID Ferrous Sulfate (Ferrous Sulfate), 325 MG PO DAILY Ibuprofen (Advil), 600 MG PO DAILY Mirabegron (Myrbetriq Er), 50 MG PO DAILY Prazosin Hcl (Prazosin), 2 MG PO HS Ropinirole Hydrochloride (Requip), 1 MG PO TID Vortioxetine HBr (Trintellix), 20 MG PO HS Scheduled PRN Dmgfedo-Ntundfdgglvvt-Buvuaokt (Excedrin Migraine), 2 TABS PO UD PRN for Headache Diclofenac Sodium (Topical) (Voltaren 1% Top Gel), 1 APPLN TOP QID PRN for Pain Diphenhydramine Hcl (Benadryl Allergy), 50 MG PO HS PRN for Sleep Eszopiclone (Eszopiclone), 2 MG PO HS PRN for Insomnia Pentosan Polysulfate Sodium (Elmiron), 100 MG PO TID PRN for UNDECIDED Promethazine HCl (Promethazine HCl), 25 MG PO Q6H PRN for Nausea Physical Exam Vital Signs Date Time Temp Pulse Resp B/P (MAP) Pulse Ox O2 Delivery O2 Flow Rate FiO2 10/11/16 11:42 36.7 90 18 140/89 97 Room Air Physical Exam GENERAL: 46-year-old white female appears lying in a darkened room in no acute distress. MENTAL STATUS: Patient is alert and oriented x3 EYES: PERRLA. EOMs intact. Funduscopic exam unremarkable. EARS: Canals clear. TMs without fluid level noted. NECK: Supple, no lymphadenopathy noted. No carotid bruits noted. LUNGS: Clear auscultation without wheezes rales or rhonchi. CARDIAC: Regular rate and rhythm without murmur. Pulses is full and equal throughout. ABDOMEN: Positive bowel sounds all 4 quadrants. Soft, nontender to palpation without organomegaly or masses. NEURO:Cranial nerves two through 12 intact. Cerebellar function intact with [id number]. Fine motor intact with alternating finger motions. Medical Decision & Procedures ED Course The patient was evaluated. The patient's EMR medication list were reviewed. The patient currently is on are 2 injection per month treatment plan. This is her first ER visit for the month. The patient was informed that she will be receiving a letter stating that we will no longer be giving narcotics for migraine headaches. The patient verbalized understanding. The patient was given her treatment regimen of Dilaudid 2 mg IM, Toradol 60 mg IM and Phenergan 25 mg IM. The patient was reevaluated and was feeling better. The patient was discharged home in stable condition. Medical Decision Differential includes: Acute intracranial bleed, trauma, meningitis, encephalitis, increased intracranial pressure, mass or mass effect, facial or dental infection, temporal arteritis, CVA, TIA, acute hypertensive emergency, sinusitis, carbon monoxide exposure. The patient presented with her typical migraine headache symptoms therefore no additional diagnostic imaging was performed. Medication Reconcilliation Current Medication List: was personally reviewed by me Blood Pressure Screening Patient's blood pressure: Normal blood pressure Impression Primary Impression: Migraine Departure Information Dispostion Home / Self-Care Condition GOOD Referrals No Doctor, Assigned (PCP) Forms HOME CARE DOCUMENTATION FORM, IMPORTANT VISIT INFORMATION Patient Instructions ED Headache Migraine, My [facility] Additional Instructions Go home and rest in a dark room. Do not drive for the remainder of the day. Follow-up with your family doctor and/or neurologist. Problem Qualifiers Primary Impression: Migraine Migraine type: without aura Status migrainosus presence: without status migrainosus Intractability: not intractable Qualified Codes: G43.009 - Migraine without aura, not intractable, without status migrainosus
[2016-10-11 12:25] VITALS: BP 139/91; PULSE 78; O2SAT 94
== END 2016-10-11 12:27 | disposition home or self-care (01) ==
LOC: C.EDB 11:39 → C.EDD 12:27
DX: G43.009 Migraine without aura, not intractable, without status migrainosus (principal); D64.9 Anemia, unspecified; F41.9 Anxiety disorder, unspecified; F32.9 Major depressive disorder, single episode, unspecified; F43.10 Post-traumatic stress disorder, unspecified; G25.81 Restless legs syndrome; Z98.84 Bariatric surgery status; Z83.3 Family history of diabetes mellitus; Z80.9 Family history of malignant neoplasm, unspecified; Z82.49 Family history of ischemic heart disease and other diseases of the circulatory system; Z84.1 Family history of disorders of kidney and ureter; Z79.899 Other long term (current) drug therapy

== ENCOUNTER 2016-10-22 20:09 | Emergency (ER) | payer OTHER ==
[~2016-10-22] VITALS: Ht 160 cm; Wt 97.5 kg
[2016-10-22 20:20] VITALS: TEMP 36.6; Ht 160 cm; Wt 97.5 kg
[2016-10-22] MEDS ORDERED: PROMETHAZINE HCL INJ 25 MG/ML 1 ML VIAL IM STA (20:42)
[2016-10-22] MEDS ORDERED: HYDROmorphone INJ 2 MG/ML SYR/VIAL IM STA (20:42)
[2016-10-22] MEDS ORDERED: KETOROLAC TROMETHAMINE 60 MG/2 ML VIAL IM STA (20:42)
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
--- NOTE | 2016-10-22 21:05 | EMERGENCY ROOM VISIT NOTE ---
ED Visit Note First contact with patient: 20:20 Patient was seen by our PA/BOY'S ADVISER. I was involved in the patient's care and did evaluate the patient myself. I was involved in the care throughout the ER stay. The patient presents with a headache that sounds migrainous. She has had similar headaches in the past. She is feeling better since being medicated and is being discharged home.
[2016-10-22 21:32] VITALS: BP 142/86; PULSE 119; O2SAT 94
== END 2016-10-22 21:25 | disposition home or self-care (01) ==
LOC: C.EDB 20:10 → C.EDA 21:25
DX: R51 Headache (principal); F41.9 Anxiety disorder, unspecified; F32.9 Major depressive disorder, single episode, unspecified; D64.9 Anemia, unspecified; G25.81 Restless legs syndrome; Z98.84 Bariatric surgery status; Z90.710 Acquired absence of both cervix and uterus; Z90.49 Acquired absence of other specified parts of digestive tract; Z79.899 Other long term (current) drug therapy; Z88.2 Allergy status to sulfonamides; Z88.8 Allergy status to other drugs, medicaments and biological substances; Z91.010 Allergy to peanuts; Z91.018 Allergy to other foods; Z91.040 Latex allergy status

== ENCOUNTER 2016-12-04 16:18 | Emergency (ER) | payer OTHER ==
[~2016-12-04] VITALS: Ht 160 cm; Wt 94.9 kg
[2016-12-04 16:32] VITALS: TEMP 36.9; Ht 160 cm; Wt 94.9 kg
[2016-12-04] MEDS ORDERED: DiphenhydrAMINE HCL 50 MG/ML VIAL IV STA (16:45)
[2016-12-04] MEDS ORDERED: SODIUM CHLORIDE 0.9% 1000ML 1,000 ML IV STA (16:45)
[2016-12-04] MEDS ORDERED: PROCHLORPERAZINE 5 MG/ML 2 ML VIAL IV STA (16:45)
[2016-12-04] MEDS ORDERED: KETOROLAC TROMETHAMINE 30 MG/ML VIAL IV STA (16:45)
[2016-12-04] MEDS ORDERED: MAGNESIUM SULFATE 1GM / D5W 1 GM BAG IV STA (16:45)
--- NOTE | 2016-12-04 16:52 | EMERGENCY ROOM VISIT NOTE ---
History Report prepared by Daniela: Vanessa Barnard Under the Supervision of: Dr. Talta Quintero M.D. First contact with patient: 16:41 Chief Complaint: HEADACHE Stated Complaint: MIGRAINE History of Present Illness The patient is a 46 year old female who presents to the Emergency Room with complaints of persistent headache starting last night. The patient has a history of migraines. She describes the pain as pounding. It is in the right of her head. It feels like her typical migraine. She reports photophobia, nausea, and numbness in her right face which is normal for her migraines. She denies any other symptoms. Source of History: patient Onset: last night Position: head Quality: ache, other (migraine) Timing: other (persistent) Modifying Factors (Worsening): other Associated Symptoms: + nausea, + numbness Note: Pt reports photophobia. Review of Systems See HPI for pertinent positives & negatives. A total of 10 systems reviewed and were otherwise negative. Past Medical & Surgical Medical Problems: (1) Anemia (2) Anxiety (3) Cystitides, interstitial, chronic (4) Depression (5) Drug overdose, intentional (6) Migraine (7) PTSD (post-traumatic stress disorder) (8) Restless leg syndrome (9) Suicidal overdose (10) Suicidal overdose (11) Suicide attempt (12) Vertigo Surgical Problems: (1) H/O gastric bypass (2) H/O: hysterectomy (3) History of appendectomy (4) History of tonsillectomy and adenoidectomy (5) Hx of cholecystectomy (6) Previous section Family History Diabetes mellitus FH: cancer FH: diabetes mellitus FH: heart disease Heart disease Hypertension Kidney disease Kidney stones Social History Smoking Status: Never Smoker Alcohol Use: none Drug Use: none Marital Status: Housing Status: lives with family Occupation Status: unemployed, disabled Current/Historical Medications Scheduled Aripiprazole (Aripiprazole), 20 MG PO HS Chlorpromazine Hcl (Thorazine), 50 MG PO TID Clonazepam (Clonazepam), 1 MG PO BID Ibuprofen (Advil), 600 MG PO QAM Mirabegron (Myrbetriq Er), 50 MG PO HS Prazosin Hcl (Prazosin), 2 MG PO HS Ropinirole Hydrochloride (Requip), 1 MG PO TID Vortioxetine HBr (Trintellix), 20 MG PO HS Scheduled PRN Oltzcrb-Pxqblflntivpz-Prsqlzwo (Excedrin Migraine), 2 TABS PO UD PRN for Headache Diclofenac Sodium (Topical) (Voltaren 1% Top Gel), 1 APPLN TOP QID PRN for Pain Diphenhydramine Hcl (Benadryl Allergy), 50 MG PO HS PRN for Sleep Eszopiclone (Eszopiclone), 2 MG PO HS PRN for Insomnia Pentosan Polysulfate Sodium (Elmiron), 100 MG PO TID PRN for UNDECIDED Promethazine HCl (Promethazine HCl), 25 MG PO Q6H PRN for Nausea Allergies Coded Allergies: Banana (Verified Allergy, Severe, ANAPHYLAXIS, 12/04/16) Dog Dander (Verified Allergy, Severe, anaphylactic, 12/04/16) Kiwi (Verified Allergy, Severe, RESPIRATORY PROBLEMS, 12/04/16) NUTS (Verified Allergy, Severe, difficulty breathing, hives, 12/04/16) Pecan (Verified Allergy, Severe, ANAPHYLAXIS, 12/04/16) Butorphanol (Verified Allergy, Mild, 12/04/16) Sulfa Antibiotics (Verified Allergy, Mild, `, 12/04/16) Latex (Verified Allergy, Unknown, itchy, 12/04/16) Pistachio (Verified Allergy, Unknown, ANAPHYLAXIS, 12/04/16) Physical Exam Vital Signs Date Time Temp Pulse Resp B/P (MAP) Pulse Ox O2 Delivery O2 Flow Rate FiO2 12/04/16 19:53 76 20 126/81 96 Room Air 12/04/16 18:13 78 16 104/52 94 12/04/16 16:32 36.9 118 18 120/81 96 Room Air Physical Exam GENERAL: Patient is a healthy-appearing well-nourished female HEAD: Normocephalic atraumatic EYES: Ocular movements intact pupils equal and react to light OROPHARYNX mucous membranes are moist no exudates present no erythema or edema present NECK: Supple no nuchal rigidity no evidence of meningitis or encephalitis CHEST: Good equal expansion LUNGS: Clear and equal to auscultation CARDIAC: Normal S1 and S2 ABDOMEN: Soft nontender no guarding BACK: No CVA tenderness EXTREMITIES: No pain upon palpation normal muscle strength in all groups no clubbing cyanosis or edema NEURO: Patient is following commands and answering questions appropriately. Alert and oriented x3 Cranial Nerves 2-12 grossly intact Medical Decision & Procedures Medications Administered Medications (Trade) Dose Ordered Sig/Gary Route Start Time Stop Time Status Last Admin Dose Admin Magnesium Sulfate (Magnesium Sulfate) 1 gm NOW STAT IV 12/04/16 16:45 12/04/16 16:48 DC 12/04/16 17:20 1 GM Ketorolac Tromethamine (Toradol Inj) 30 mg NOW STAT IV 12/04/16 16:45 12/04/16 16:48 DC 12/04/16 17:12 30 MG Prochlorperazine Edisylate (Compazine Inj) 10 mg NOW STAT IV 12/04/16 16:45 12/04/16 16:48 DC 12/04/16 17:14 10 MG Diphenhydramine HCl (Benadryl Inj) 50 mg NOW STAT IV 12/04/16 16:45 12/04/16 16:48 DC 12/04/16 17:09 50 MG Sodium Chloride 1,000 ml @ 999 mls/hr Q1H1M STAT IV 12/04/16 16:45 12/04/16 17:45 DC 12/04/16 17:08 999 MLS/HR Valproate Sodium 500 mg/Dextrose 55 ml @ 55 mls/hr NOW STAT IV 12/04/16 17:51 12/04/16 18:50 DC 12/04/16 18:21 55 MLS/HR Dexamethasone Sodium Phosphate (Decadron Inj) 10 mg NOW STAT IV 12/04/16 17:51 12/04/16 17:53 DC 12/04/16 18:16 10 MG Ondansetron HCl (Zofran Inj) 4 mg NOW STAT IV 12/04/16 17:51 12/04/16 17:53 DC 12/04/16 18:15 4 MG ED Course 1643: Past medical records reviewed. The patient was evaluated in room C12A. A complete history and physical examination was performed. 1645: NSS 1000 ml @ 999 mls/hr IV, Benadryl Inj 50 mg IV, Compazine Inj 10 mg IV , Toradol Inj 30 mg IV, Magnesium Sulfate 1 gm IV. 1749: I reevaluated the patient. She is requesting more pain medications. 1751: Zofran Inj 4 mg IV, Decadron Inj 10 mg IV, Valproate Sodium 500 mg/ Dextrose 55 ml @ 55 mls/hr IV. 1849: Upon reexamination the patient is resting comfortably. I discussed results and treatment plan with the patient. She verbalizes agreement and understanding. The patient is ready for discharge. Medical Decision Differential diagnosis: Etiologies such as migraine headache, meningitis, sinusitis, CO exposure, ICH, SAH, infection, tumor, headache, sinus thrombosis, arterial dissection, as well as others were entertained. This is a 46-year-old female who presents emergency department complaining of one of her migraines. Patient states is typical for her she has no evidence of meningitis or encephalitis on examination area an IV was established, patient given normal saline bolus, magnesium, Toradol, Compazine, Benadryl. Repeat examination revealed some improvement patient's symptoms. She was therefore given further dose of Decadron as well as valproate. Repeat examination revealed much improvement the patient's symptoms. I do believe that the patient as well as to be discharged home for follow-up with her primary care physician. Patient was in agreement with the treatment plan. Medication Reconcilliation Current Medication List: was personally reviewed by me Blood Pressure Screening Patient's blood pressure: Normal blood pressure Blood pressure disposition: Did not require urgent referral Impression Primary Impression: Headache Scribe Attestation The scribe's documentation has been prepared under my direction and personally reviewed by me in its entirety. I confirm that the note above accurately reflects all work, treatment, procedures, and medical decision making performed by me. Departure Information Dispostion Home / Self-Care Referrals [facility] HOME CARE DOCUMENTATION FORM, IMPORTANT VISIT INFORMATION Patient Instructions ED Headache Migraine, My [facility] Additional Instructions You have been examined and treated today on an emergency basis only. This is not a substitute for, or an effort to provide, complete comprehensive medical care. It is impossible to recognize and treat all injuries or illnesses in a single emergency department visit. It is therefore important that you follow up closely with your PCP. Call as soon as possible for an appointment. Thank you for your time and consideration. I look forward to speaking with you again soon. Please don't hesitate to call us if you have any questions. Problem Qualifiers Primary Impression: Headache Headache type: unspecified Headache chronicity pattern: unspecified pattern Intractability: not intractable Qualified Codes: R51 - Headache
[2016-12-04] MEDS ORDERED: DEXAMETHASONE SOD INJ 10 MG/ML VIAL IV STA (17:51)
[2016-12-04] MEDS ORDERED: VALPROATE SOD IV 500 MG in DEXTROSE 5% 50ML 50 ML IV STA (17:51)
[2016-12-04] MEDS ORDERED: ONDANSETRON INJ 2 MG/ML 2 ML VIAL IV STA (17:51)
[2016-12-04 19:53] VITALS: BP 126/81; PULSE 76; O2SAT 96
== END 2016-12-04 19:05 | disposition home or self-care (01) ==
LOC: C.EDB 16:19 → C.EDC 19:05
DX: G43.909 Migraine, unspecified, not intractable, without status migrainosus (principal); D64.9 Anemia, unspecified; F41.9 Anxiety disorder, unspecified; N30.10 Interstitial cystitis (chronic) without hematuria; F43.10 Post-traumatic stress disorder, unspecified; G25.81 Restless legs syndrome; Z98.84 Bariatric surgery status; Z90.710 Acquired absence of both cervix and uterus; Z83.3 Family history of diabetes mellitus; Z82.49 Family history of ischemic heart disease and other diseases of the circulatory system; Z84.1 Family history of disorders of kidney and ureter

== ENCOUNTER 2017-04-22 06:53 | Emergency (ER) | payer OTHER ==
[~2017-04-22] VITALS: Ht 160 cm; Wt 103.7 kg
[~2017-04-22 06:53] MED LIST changes: -FERR325T5 PO
[2017-04-22 06:55] VITALS: TEMP 36.7; Ht 160 cm; Wt 103.7 kg
--- NOTE | 2017-04-22 07:22 | DIAGNOSTIC IMAGING REPORT ---
L FOOT MIN 3 VIEWS ROUTINE CLINICAL HISTORY: 46 years-old Female presenting with R/O fx left foot, pain following fall. TECHNIQUE: Frontal, oblique, and lateral views of the left foot were obtained. COMPARISON: None. FINDINGS: No acute fracture or malalignment. Small inferior calcaneal enthesophyte. Trace enthesophyte at the insertion of the Achilles tendon. No advanced degenerative change. No radiographic soft tissue abnormality. IMPRESSION: No acute osseous injury. Electronically signed by: Sy Sun M.D. 04/22/2017 7:21 AM Dictated Date/Time: 04/22/2017 7:20 AM
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
[2017-04-22 08:04] VITALS: BP 132/89; PULSE 91; O2SAT 96
== END 2017-04-22 08:04 | disposition home or self-care (01) ==
LOC: C.EDB 06:54 → C.EDA 08:04
DX: S93.602A Unspecified sprain of left foot, initial encounter (principal); W18.09XA Striking against other object with subsequent fall, initial encounter; Y92.013 Bedroom of single-family (private) house as the place of occurrence of the external cause; D64.9 Anemia, unspecified; F41.9 Anxiety disorder, unspecified; F32.9 Major depressive disorder, single episode, unspecified; G43.909 Migraine, unspecified, not intractable, without status migrainosus; F43.10 Post-traumatic stress disorder, unspecified; G25.81 Restless legs syndrome; Z98.84 Bariatric surgery status; Z79.899 Other long term (current) drug therapy; Z91.018 Allergy to other foods; Z91.048 Other nonmedicinal substance allergy status; Z88.2 Allergy status to sulfonamides; Z91.040 Latex allergy status

== ENCOUNTER 2017-07-07 18:25 | Emergency (ER) | payer OTHER ==
[~2017-07-07] VITALS: Ht 160 cm; Wt 112.3 kg
[2017-07-07 18:26] VITALS: TEMP 36.7; Ht 160 cm; Wt 112.3 kg
[2017-07-07] MEDS ORDERED: OXYCODONE/ACETAMINOPHEN 5-325 TAB PO ONE (18:45)
--- NOTE | 2017-07-07 18:51 | EMERGENCY ROOM VISIT NOTE ---
History First contact with patient: 18:32 Chief Complaint: SWELLING TO EXTREMITY Stated Complaint: INTERSTICIAL CYSTIS PAIN, SWELLING IN LEGS AND ARM History of Present Illness The patient is a 46 year old female who presents to the Emergency Room for hand/ foot swelling and increased interstitial cystitis pain. Patient notes several days of having increasing swelling in hands and feet. Admits this has gone along with fact she has been much more sedentary the last few days after stubbing her left foot a few days ago. Notes that she has associated weakness. Denies shob, cp, calf pain, syncope, fevers, nor other symptoms. She notes chronic headache which is unchanged. Notes that her cystitis periodically flares up. Associated with decreased UOP and constant burning sensation in suprapubic region. She denies rashes, drainage, vaginal bleeding. She has history of hysterectomy (2002), 2001), GB out 1993, Appendix out 1997. She denies any improvement with bactlofen, tylenol nor motrin. Nothing makes symptoms better nor worse. Admits this has happened many times before. Denies any infectious symptoms. States this is similar to previous flare ups. Denies recent trauma/injury. Review of Systems See HPI for pertinent positives & negatives. A total of 10 systems reviewed and were otherwise negative. Past Medical/Surgical History Medical Problems: (1) Anemia (2) Anxiety (3) Cystitides, interstitial, chronic (4) Depression (5) Drug overdose, intentional (6) Migraine (7) PTSD (post-traumatic stress disorder) (8) Restless leg syndrome (9) Suicidal overdose (10) Suicidal overdose (11) Suicide attempt (12) Vertigo Surgical Problems: (1) H/O gastric bypass (2) H/O: hysterectomy (3) History of appendectomy (4) History of tonsillectomy and adenoidectomy (5) Hx of cholecystectomy (6) Previous section Family History Diabetes mellitus FH: cancer FH: diabetes mellitus FH: heart disease Heart disease Hypertension Kidney disease Kidney stones Social History Smoking Status: Never Smoker Alcohol Use: none Drug Use: none Marital Status: Housing Status: lives with family Occupation Status: unemployed, disabled Current/Historical Medications Scheduled Aripiprazole (Aripiprazole), 20 MG PO HS Cephalexin (Keflex), 1 CAP PO TID Chlorpromazine Hcl (Thorazine), 25 MG PO TID Chlorpromazine Hcl (Thorazine), 50 MG PO TID Pentosan Polysulfate Sodium ([place]iron), 100 MG PO TID Prazosin Hcl (Prazosin), 2 MG PO HS Tapentadol Hcl (Nucynta Er), 50 MG PO BID Vortioxetine HBr (Trintellix), 20 MG PO HS Scheduled PRN Ailpshw-Peblliahtmgoo-Nweufmau (Excedrin Migraine), 2 TABS PO UD PRN for Headache Diclofenac Sodium (Topical) (Voltaren 1% Top Gel), 1 APPLN TOP QID PRN for Pain Diphenhydramine Hcl (Benadryl Allergy), 50 MG PO HS PRN for Sleep Eszopiclone (Eszopiclone), 2 MG PO HS PRN for Insomnia Ibuprofen (Advil), 600 MG PO QAM PRN for Pain Phenazopyridine HCl (Pyridium), 200 MG PO TID PRN for Frequency/Burning w/ Urination Promethazine HCl (Promethazine HCl), 25 MG PO Q6H PRN for Nausea Ropinirole Hydrochloride (Requip), 1 MG PO TID PRN for LEG CRAMPS Physical Exam Vital Signs Date Time Temp Pulse Resp B/P (MAP) Pulse Ox O2 Delivery O2 Flow Rate FiO2 07/07/17 20:20 107 16 141/80 95 Room Air 07/07/17 18:26 36.7 110 20 125/84 98 Room Air Physical Exam GENERAL: Patient is uncomfortable appearing and in mild distress. EYES: No scleral icterus, unremarkable pupils. ENT: Mucous membranes moist, no nasal congestion. NECK: No masses appreciated, no meningismus, trachea is midline. RESPIRATORY: No dyspnea. Clear to auscultation and equal bilaterally. No wheeze , no rhonchi. CARDIOVASCULAR: Mild tachy. No murmurs, rubs, gallops appreciated. GASTROINTESTINAL: Vague suprapubic TTP, abdomen soft, nontender, no peritonitis. Bowel sounds positive. No masses appreciated. BACK: No midline tenderness, no CVA tenderness EXTREMITIES: Normal motion all extremities, no cyanosis, no edema. Her ring fits finger well without evidence of being tight. NEUROLOGIC: Alert and oriented, no acute motor or sensory deficits, no focal weakness, cranial nerves grossly intact. SKIN: No rash, no jaundice, no diaphoresis. Medical Decision & Procedures Laboratory Results 07/07/17 19:02 Red Blood Count 4.07, Mean Corpuscular Volume 93.1, Mean Corpuscular Hemoglobin 30.0, Mean Corpuscular Hemoglobin Concent 32.2, Mean Platelet Volume 10.2, Neutrophils (%) (Auto) 63.1, Lymphocytes (%) (Auto) 30.0, Monocytes (%) (Auto) 6.3, Eosinophils (%) (Auto) 0.2, Basophils (%) (Auto) 0.0, Neutrophils # (Auto) 3.03, Lymphocytes # (Auto) 1.44, Monocytes # (Auto) 0.30, Eosinophils # (Auto) 0.01, Basophils # (Auto) 0.00 07/07/17 19:02 Test 07/07/17 19:02 07/07/17 19:20 White Blood Count 4.80 K/uL (4.8-10.8) Red Blood Count 4.07 M/uL (4.2-5.4) Hemoglobin 12.2 g/dL (12.0-16.0) Hematocrit 37.9 % (37-47) Mean Corpuscular Volume 93.1 fL (80-100) Mean Corpuscular Hemoglobin 30.0 pg (25-34) Mean Corpuscular Hemoglobin Concent 32.2 g/dl (32-36) Platelet Count 233 K/uL (130-400) Mean Platelet Volume 10.2 fL (7.4-10.4) Neutrophils (%) (Auto) 63.1 % Lymphocytes (%) (Auto) 30.0 % Monocytes (%) (Auto) 6.3 % Eosinophils (%) (Auto) 0.2 % Basophils (%) (Auto) 0.0 % Neutrophils # (Auto) 3.03 K/uL (1.4-6.5) Lymphocytes # (Auto) 1.44 K/uL (1.2-3.4) Monocytes # (Auto) 0.30 K/uL (0.11-0.59) Eosinophils # (Auto) 0.01 K/uL (0-0.5) Basophils # (Auto) 0.00 K/uL (0-0.2) RDW Standard Deviation 47.0 fL (36.4-46.3) RDW Coefficient of Variation 13.7 % (11.5-14.5) Immature Granulocyte % (Auto) 0.4 % Immature Granulocyte # (Auto) 0.02 K/uL (0.00-0.02) Anion Gap 5.0 mmol/L (3-11) Est Creatinine Clear Calc Drug Dose 109.1 ml/min Estimated GFR () 107.5 Estimated GFR (Non- 92.8 BUN/Creatinine Ratio 18.1 (10-20) Calcium Level 8.0 mg/dl (8.5-10.1) Total Bilirubin 0.3 mg/dl (0.2-1) Direct Bilirubin < 0.1 mg/dl (0-0.2) Aspartate Amino Transf (AST/SGOT) 22 U/L (15-37) Alanine Aminotransferase (ALT/SGPT) 47 U/L (12-78) Alkaline Phosphatase 74 U/L (45-117) Total Creatine Kinase 114 U/L (26-192) Troponin I < 0.015 ng/ml (0-0.045) Pro-B-Type Natriuretic Peptide 122 pg/ml (0-450) Total Protein 6.8 gm/dl (6.4-8.2) Albumin 3.5 gm/dl (3.4-5.0) Thyroid Stimulating Hormone (TSH) 3.860 uIu/ml (0.300-4.500) Urine Color YELLOW Urine Appearance CLEAR (CLEAR) Urine pH 5.0 (4.5-7.5) Urine Specific [place] 1.028 (1.000-1.030) Urine Protein NEG (NEG) Urine Glucose (UA) NEG (NEG) Urine Ketones NEG (NEG) Urine Occult Blood NEG (NEG) Urine Nitrite NEG (NEG) Urine Bilirubin NEG (NEG) Urine Urobilinogen NEG (NEG) Urine Leukocyte Esterase TRACE (NEG) Urine WBC (Auto) 5-10 /hpf (0-5) Urine RBC (Auto) 0-4 /hpf (0-4) Urine Hyaline Casts (Auto) 1-5 /lpf (0-5) Urine Epithelial Cells (Auto) >30 /lpf (0-5) Urine Bacteria (Auto) NEG (NEG) Medications Administered Medications (Trade) Dose Ordered Sig/[place] Route Start Time Stop Time Status Last Admin Dose Admin Oxycodone/ Acetaminophen (Percocet 5-325mg Tab) 1 tab NOW ONCE PO 07/07/17 18:45 07/07/17 18:46 DC 07/07/17 18:57 1 TAB Phenazopyridine HCl (Pyridium Tab) 200 mg NOW STAT PO 07/07/17 20:25 07/07/17 20:26 DC 07/07/17 20:33 200 MG Cephalexin Monohydrate (Keflex Cap) 500 mg NOW ONCE PO 07/07/17 20:30 07/07/17 20:31 DC 07/07/17 20:32 500 MG ECG Per My Interpretation Indication: tachycardia Rate (beats per minute): 106 Rhythm: sinus tachycardia Findings: no acute ischemic change, no ectopy (QTC 483) Medical Decision Differential: UTI, Urethritis, Pyelonephritis, STI, Herpetic, Vaginitis, Hyperglycemia, Yeast, PID, Cystitis, Hemorrhagic Cystitis, amongst other pathologies entertained. 46 yr old female with complaint bilateral hand and feet though not very remarkable on exam, but also complaining of flare up of her cystitis symptoms. She is not septic and does not have symptoms of pyelonephritis nor stone. She denies symptoms of yeast, vaginitis, rash, etc. She has previous hysterectomy thus no preg test. She is stable and looks well after Percocet tablet. She has long history of chronic pain issues and is well known to department. Without acute findings I do not feel that further narcotics are indicated. I did offer abx just in case this is underlying infection as WBC in urine though with epi's it is tough to say this is clearly UTI. She does not have obvious swelling on exam but given her report it may just be because she has not been very active last few days and just laying around after hurting her foot. She does not have evidence of this being diffuse DVT, nor thyroid, nor electrolyte, nor protein issue. There is no evidence of CHF by exam, vitals, nor labs. She is mildly tachy on arrival which is similar to some of her previous visits and I suspect this is due to her being a bit worked up. EKG looks unremarkable and trop is negative nor does she have any cp, sob, nor cardiac symptoms otherwise. There is no evidence of PE by her history either thus I do not feel she meets criteria for CT PE study at this time. I have stressed she follow up with her PCP in the next few days for recheck and if she develops worsening symptoms or other concerns she can return for further evaluation. Head Trauma GCS Score: 15 Medication Reconcilliation Current Medication List: was personally reviewed by me Blood Pressure Screening Patient's blood pressure: Normal blood pressure Impression Primary Impression: Cystitis, acute Additional Impression: Bilateral hand swelling Departure Information Dispostion Home / Self-Care Condition GOOD Prescriptions Cephalexin (KEFLEX) 500 Mg Cap 1 CAP PO TID for 5 Days, #15 CAP Prov: Silvestre Mo M.D. 07/07/17 Phenazopyridine HCl (Pyridium) 200 Mg Tab 200 MG PO TID Y for Frequency/Burning w/Urination, #9 TAB Prov: Silvestre Mo M.D. 07/07/17 Referrals Milagro Steiner (PCP) Patient Instructions ED UTI Cystitis Female, My [facility] Health Problem Qualifiers Primary Impression: Cystitis, acute
[2017-07-07] MEDS ORDERED: CHLO1TAB15 PO (19:14)
[2017-07-07] MEDS ORDERED: TAPE1TAB9 PO (19:14)
[2017-07-07] MEDS ORDERED: THR25 PO (19:14)
[2017-07-07 19:30] LABS: EOS % 0.2 %; EOS ABS # 0.01 K/uL (0-0.5); HEMATOCRIT 37.9 % (37-47); HEMOGLOBIN 12.2 g/dL (12.0-16.0); IG# 0.02 K/uL (0.00-0.02); LYMPH ABS # 1.44 K/uL (1.2-3.4); MEAN CELL VOLUME 93.1 fL (80-100); MEAN CORPUSCULAR HGB CONC 32.2 g/dl (32-36); MEAN PLATELET VOLUME 10.2 fL (7.4-10.4); MONO % 6.3 %; NEUT % 63.1 %; NEUT ABS # 3.03 K/uL (1.4-6.5); PLATELET COUNT 233 K/uL (130-400); RED CELL DISTRIBUTION WIDTH CV 13.7 % (11.5-14.5)
[2017-07-07 19:38] LABS: ALBUMIN 3.5 gm/dl (3.4-5.0); ALT/SGPT 47 U/L (12-78); AST/SGOT 22 U/L (15-37); BLOOD UREA NITROGEN 14 mg/dl (7-18); CARBON DIOXIDE 29 mmol/L (21-32); CREATININE 0.76 mg/dl (0.60-1.20); GLUCOSE 122 mg/dl (70-99); SODIUM 145 mmol/L (136-145)
[2017-07-07 19:48] LABS: ALKALINE PHOSPHATASE 74 U/L (45-117); TOTAL PROTEIN 6.8 gm/dl (6.4-8.2)
[2017-07-07 20:20] VITALS: BP 141/80; PULSE 107; O2SAT 95
[2017-07-07] MEDS ORDERED: PHENAZOPYRIDINE HCL 200 MG TAB PO STA (20:25)
[2017-07-07] MEDS ORDERED: PHEN-876 PO (20:27)
[2017-07-07] MEDS ORDERED: CEPH-571 PO (20:27)
[2017-07-07] MEDS ORDERED: CEPHALEXIN MONOHYDRATE 250 MG CAP PO ONE (20:30)
== END 2017-07-07 20:36 | disposition home or self-care (01) ==
LOC: C.EDB 18:27 → C.EDC 20:36
DX: N30.00 Acute cystitis without hematuria (principal); M79.89 Other specified soft tissue disorders; F41.9 Anxiety disorder, unspecified; F32.9 Major depressive disorder, single episode, unspecified; F43.10 Post-traumatic stress disorder, unspecified; Z98.84 Bariatric surgery status; Z79.899 Other long term (current) drug therapy

== ENCOUNTER 2017-10-17 14:27 | Emergency (ER) | payer OTHER ==
[~2017-10-17] VITALS: Ht 160 cm; Wt 111.0 kg
[~2017-10-17 14:27] MED LIST changes: +CHLO1TAB15 PO; -CHLO50TA6 PO; -KLN1X PO; -MIRA1TAB3 PO; +PHEN-876 PO; +TAPE1TAB9 PO; +THR25 PO
[2017-10-17 14:31] VITALS: TEMP 36.3; Ht 160 cm; Wt 111.0 kg
[2017-10-17] MEDS ORDERED: FLUT0.15 NEB (15:03)
[2017-10-17] MEDS ORDERED: PREG100C PO (15:03)
[2017-10-17] MEDS ORDERED: BENZ0.5T2 PO (15:03)
[2017-10-17] MEDS ORDERED: OXYC7.5T65 PO (15:03)
--- NOTE | 2017-10-17 15:48 | DIAGNOSTIC IMAGING REPORT ---
HEAD WITHOUT CONTRAST (CT) CT DOSE: 679.75 mGycm HISTORY: Confusion fall; confused date TECHNIQUE: Multiaxial CT images of the head were performed without the use of intravenous contrast. A dose lowering technique was utilized adhering to the principles of ALARA. Comparison: 02/08/2015 Findings: The paranasal sinuses and mastoid air cells are clear. The calvarium and skull base are intact. The ventricles and sulci are within normal limits. There is no mass, hematoma, midline shift, or acute infarct. Impression: No acute intracranial abnormality. The above report was generated using voice recognition software. It may contain grammatical, syntax or spelling errors. Electronically signed by: Sudhir Portillo M.D. 10/17/2017 3:47 PM Dictated Date/Time: 10/17/2017 3:46 PM
--- NOTE | 2017-10-17 15:53 | DIAGNOSTIC IMAGING REPORT ---
CERVICAL SPINE W/O CT DOSE: 466.95 mGycm HISTORY: Trauma mental status change TECHNIQUE: Multiaxial CT images of the cervical spine were performed and reformatted in the sagittal and coronal plane without the use of contrast. A dose lowering technique was utilized adhering to the principles of ALARA. COMPARISON: None. FINDINGS: No fractures. No subluxation. Prevertebral soft tissues and the C1-C2 interval are intact. No pneumothorax. IMPRESSION: No fractures within the cervical spine. Mild muscular spasm The above report was generated using voice recognition software. It may contain grammatical, syntax or spelling errors. Electronically signed by: Sudhir Portillo M.D. 10/17/2017 3:52 PM Dictated Date/Time: 10/17/2017 3:51 PM
--- NOTE | 2017-10-17 16:35 | DIAGNOSTIC IMAGING REPORT ---
R ELBOW MIN 3 VIEWS ROUTINE CLINICAL HISTORY: fall; R elbow, forearm , wrist and hand pain trauma. Pain. COMPARISON: None. DISCUSSION: The bones and joint spaces appear intact. There is no evidence of fracture, dislocation or bony disease. There is no evidence for soft tissue swelling. IMPRESSION: Negative study. The above report was generated using voice recognition software. It may contain grammatical, syntax or spelling errors. Electronically signed by: Sudhir Portillo M.D. 10/17/2017 4:34 PM Dictated Date/Time: 10/17/2017 4:34 PM
--- NOTE | 2017-10-17 16:36 | DIAGNOSTIC IMAGING REPORT ---
R FOREARM 2 VIEWS ROUTINE CLINICAL HISTORY: same trauma COMPARISON: None. DISCUSSION: The bones and joint spaces appear intact. There is no evidence of fracture, dislocation or bony disease. There is no evidence for soft tissue swelling. IMPRESSION: Negative study. The above report was generated using voice recognition software. It may contain grammatical, syntax or spelling errors. Electronically signed by: Sudhir Portillo M.D. 10/17/2017 4:35 PM Dictated Date/Time: 10/17/2017 4:35 PM
--- NOTE | 2017-10-17 16:36 | DIAGNOSTIC IMAGING REPORT ---
RIGHT KNEE 2 VIEWS CLINICAL HISTORY: Fall with right knee pain. FINDINGS: AP and crosstable lateral views of the right knee are obtained. No prior studies are available for comparison at the time of dictation. The skeletal structures are well mineralized. No fracture is seen. The joint spaces of the knee appear preserved. There is no joint effusion. The overlying soft tissues are within normal limits. IMPRESSION: No acute bony abnormality is identified. Electronically signed by: Rikki Tamayo M.D. 10/17/2017 4:35 PM Dictated Date/Time: 10/17/2017 4:34 PM
--- NOTE | 2017-10-17 16:37 | DIAGNOSTIC IMAGING REPORT ---
R HAND MIN 3 VIEWS ROUTINE CLINICAL HISTORY: same trauma COMPARISON: None. DISCUSSION: Dislocation proximal interphalangeal joint fifth finger. Main osseous structures are unremarkable. Minimal degenerative change throughout. There is no evidence for soft tissue swelling. IMPRESSION: Dislocation proximal interphalangeal joint fifth finger. The above report was generated using voice recognition software. It may contain grammatical, syntax or spelling errors. Electronically signed by: Sudhir Portillo M.D. 10/17/2017 4:36 PM Dictated Date/Time: 10/17/2017 4:35 PM
--- NOTE | 2017-10-17 16:38 | DIAGNOSTIC IMAGING REPORT ---
RIGHT WRIST 5 VIEWS CLINICAL HISTORY: Fall with right wrist pain. FINDINGS: 5 views of the right wrist are obtained. No prior studies are available for comparison at the time of dictation. The skeletal structures are well mineralized. No fracture is seen. The joint spaces of the wrist are preserved. Mild soft tissue swelling is noted. IMPRESSION: Mild soft tissue swelling with no radiographic evidence of right wrist fracture. Electronically signed by: Rikki Tamayo M.D. 10/17/2017 4:37 PM Dictated Date/Time: 10/17/2017 4:35 PM
--- NOTE | 2017-10-17 16:39 | DIAGNOSTIC IMAGING REPORT ---
R TIBIA/FIBULA 2 VIEWS ROUTINE CLINICAL HISTORY: same trauma COMPARISON: None. DISCUSSION: The bones and joint spaces appear intact. There is no evidence of fracture, dislocation or bony disease. There is no evidence for soft tissue swelling. IMPRESSION: Negative study. The above report was generated using voice recognition software. It may contain grammatical, syntax or spelling errors. Electronically signed by: Sudhir Portillo M.D. 10/17/2017 4:38 PM Dictated Date/Time: 10/17/2017 4:36 PM
[2017-10-17] MEDS ORDERED: LIDO/EPINEPHRINE/SOD BICARB 20 ML VIAL ONE (16:53)
[2017-10-17] MEDS ORDERED: LIDOCAINE 1% BUFFERED INJ 20 ML VIAL ONE (16:55)
--- NOTE | 2017-10-17 17:09 | EMERGENCY ROOM VISIT NOTE ---
ED Visit Note The patient was seen and examined by myself in conjunction with the advanced care provider. Reviewed imaging and reads. Discussed with patient and family plan. I agree with the history, physical and findings as documented. Please see the note for disposition and details.
--- NOTE | 2017-10-17 17:33 | DIAGNOSTIC IMAGING REPORT ---
RIGHT HAND 3 VIEWS CLINICAL HISTORY: Postreduction examination. FINDINGS: 3 views of the right hand are compared to study performed earlier the same 10/17/2017. The skeletal structures are well mineralized. There is likely a tiny avulsion fracture from the head of the fifth proximal phalanx. No additional acute fracture is seen. There is persistent dislocation at the fifth proximal interphalangeal joint. The joint spaces of the hand are otherwise preserved. Soft tissue swelling is noted in the fifth finger. An IV catheter is noted. IMPRESSION: 1. There is persistent dislocation at the fifth proximal interphalangeal joint with overlying soft tissue edema. 2. There is likely a tiny avulsion fracture from the head of the fifth proximal phalanx. Electronically signed by: Rikki Tamayo M.D. 10/17/2017 5:32 PM Dictated Date/Time: 10/17/2017 5:30 PM
--- NOTE | 2017-10-17 18:19 | DIAGNOSTIC IMAGING REPORT ---
RIGHT HAND 3 VIEWS CLINICAL HISTORY: Postreduction examination. FINDINGS: 3 views of the right hand are compared to studies performed earlier the same 10/17/2017. The skeletal structures are well mineralized. There has been successful reduction of the dislocated fifth proximal interphalangeal joint is compared to previous. The joint spaces of the hand are maintained. There is a small avulsion fracture from the volar base of the fifth middle phalanx. There is also likely tiny avulsion fracture from the head of the fifth proximal phalanx. Soft tissue swelling is noted in the fifth finger. An IV catheter is noted. IMPRESSION: 1. There has been successful reduction of the dislocated fifth proximal interphalangeal joint as compared to today's earlier examinations. 2. There is a small avulsion fracture at the volar base of the fifth middle phalanx. 3. There is also likely tiny avulsion fracture from the head of the fifth proximal phalanx. Electronically signed by: Rikki Tamayo M.D. 10/17/2017 6:17 PM Dictated Date/Time: 10/17/2017 6:15 PM
[2017-10-17 19:01] VITALS: BP 167/95; PULSE 105; O2SAT 95
--- NOTE | 2017-10-18 16:09 | EMERGENCY ROOM VISIT NOTE ---
ED Visit Note First contact with patient: 14:33 Chief Complaint: Fall. History of Present Illness: Ms. Hurt is a 47-year-old white female who is brought into the ED accompanied by her mother following a fall downstairs. Patient and mother reports approximately 30 minutes prior to arrival at the hospital she was taking out her dog to go for a walk. She reports she tripped and fell down approximately 7 stairs on the outside of her house. She is unsure of any known mechanism of injury or if she had a loss of consciousness. Currently she is complaining of pain in the right upper extremity and right lower extremity. She places her right upper extremity over the forearm and hand. She places her right leg pain over the lateral aspect of the mid to distal fibula area. She was not able to describe her discomfort. She rated her discomfort 10/10. Her pain in these areas worsened with palpation. She has not identified any alleviating factors related to the pain. She has not taken any medication for pain prior to arrival at the hospital. Associated with her fall and symptoms she reports that she is dizzy with room spinning sensations. She denies headache, visual changes, hearing changes, difficulty speaking, difficulty swallowing, neck pain, chest pain, shortness of breath, nausea, vomiting, abdominal pain, upper or lower extremity weakness/numbness/tingling. Review of Systems: As noted above in history of present illness. All body systems were reviewed and found to be negative as noted above. Past Medical History: Chronic anemia, anxiety, depression, migraine headaches, posttraumatic stress disorder, restless leg syndrome, vertigo, status post gastric bypass, hysterectomy, appendectomy, tonsillectomy, adenoidectomy, cholecystectomy, section Current Medications: Medications Dose Route/Sig Max Daily Dose Days Date Category Dose Instructions Flonase Allergy Relief (Fluticasone Propionate (Nasal)) 50 Mcg/Act Spr 2 Sprays NEB DAILY 10/17/17 Reported Benztropine Mesylate 0.5 Mg Tab 0.5 Mg PO HS 10/17/17 Reported Lyrica (Pregabalin) 100 Mg Cap 100 Mg PO TID 10/17/17 Reported Percocet 7.5MG/325MG (Oxycodone/Acetaminophen) Tab 1 Tab PO DAILY PRN 10/17/17 Reported PRN PAIN Nucynta Er (Tapentadol Hcl) 50 Mg Tab 50 Mg PO BID 07/07/17 Reported Thorazine (Chlorpromazine HCl) 50 Mg Tab 50 Mg PO TID 07/07/17 Reported TOTAL DOSE 75 MG. Thorazine (Chlorpromazine Hcl) 25 Mg Tab 25 Mg PO TID 07/07/17 Reported TOTAL DOSE 75 MG. Aripiprazole 20 Mg Tab 20 Mg PO HS 04/17/16 Reported Prazosin (Prazosin Hcl) 1 Mg Cap 2 Mg PO HS 04/17/16 Reported Trintellix (Vortioxetine HBr) 20 Mg Tab 20 Mg PO HS 11/06/15 Reported Eszopiclone 2 Mg Tab 2 Mg PO HS PRN 09/28/15 Reported Elmiron (Pentosan Polysulfate Sodium) 100 Mg Cap 100 Mg PO TID 03/28/15 Reported Allergies to Medications: Latex, sulfa, butorphanol. Social History: Patient is not employed, she is on disability; feels safe in her home environment; she denies tobacco and alcohol use. Physical Examination: Vital Signs: Date Time Temp Pulse Resp B/P (MAP) Pulse Ox O2 Delivery O2 Flow Rate FiO2 10/17/17 19:01 105 167/95 95 10/17/17 16:33 96 14 173/94 95 Room Air 10/17/17 14:31 36.3 97 18 159/90 95 Room Air GENERAL: 47-year-old female in mild to moderate distress due to pain, nontoxic- appearing, afebrile and hemodynamically stable. NEUROLOGICAL: Awake, alert and oriented to person, place and did know the day of the week and month but was off on year. GCS: 14-15. Answering questions appropriately and following commands. Cranial nerves II through XII grossly intact. Good hand eye coordination. No focal motor or sensory deficits. SKIN: Warm, dry and pink. Superficial abrasions were noted to the right elbow, right forearm, right knee and right lateral distal fibula. None of these wounds are bleeding. I do no swelling, deformity and bruising of the right little finger. HEENT: Atraumatic and normocephalic. Skull: No bony deformity, bony crepitus, swelling or ecchymosis. No raccoons eyes or resendez signs. No drainage from malocclusion. No intraoral trauma. Airway is patent. Speech is normal and clear. Trachea midline. No jugular venous distention. BACK: No tenderness over the bony cervical, thoracic and lumbar spine. No bony crepitus, swelling or step-offs. No tenderness throughout the paraspinous muscles. THORAX: Lungs sounds are clear to auscultation and equal bilaterally with symmetrical chest wall. No crepitus, tenderness, subcutaneous air or deformities noted. HEART: Regular rate and rhythm. No gallops, rubs or murmurs are appreciated. ABDOMEN: Obese, soft and nontender. Positive bowel sounds in all quadrants. No guarding, rigidity or organomegaly. PELVIS: Stable and nontender to compression and rock. UPPER EXTREMITIES: Deformity noted of the left little finger. No tenderness in the shoulders or humerus. There is mild tenderness over the right olecranon process and over the posterior aspect of the radius and ulna. There are abrasions in this area but I do not appreciate any gross bony deformity, bony crepitus or ecchymosis. She initially refused to do range of motion exercises due to pain but after the x-ray she had full range of motion in flexion and extension of the elbow and pronation and supination of the forearm. She also has moderate tenderness over the posterior wrist without anatomical snuffbox tenderness. There is no bony deformity bony bony crepitus, swelling or ecchymosis. Once again she refused to do range of motion exercises due to pain. In the hand there is notable ecchymosis and bruising around the little finger in the area of the PIP joint where there is deformity. I do not appreciate any bony crepitus. To all fingers she was able to distinguish light sensations. Capillary refill was brisk. Patient was found to have a PIP joint dislocation and after a second attempt it was reduced and she did have full range of motion in flexion and extension of the MCP, PIP and DIP joint. LOWER EXTREMITIES: No gross bony deformity. No shortening or malrotation. No tenderness throughout the hips and thighs. Mild tenderness over the anterior right knee. There is no bony deformity or crepitus. There was a superficial abrasion and contusion in this area. I do not appreciate any laxity of the ligamentous structures of the knee. Range of motion was limited due to pain. No tenderness throughout the rest of the left lower extremity. Patient also has moderate tenderness over the distal aspect of the lateral fibula. There is a large abrasion and contusion in this area. I do not appreciate any bony deformity or crepitus. She has no tenderness throughout the ankle. Full range of motion in plantarflexion and dorsiflexion of the ankle against resistance. No tenderness throughout the feet bilaterally. Distal pulses were intact. Light sensation was intact bilaterally. Capillary refill was brisk bilaterally. ED Course: Patient is assessed as noted above. Patient's medication list was reviewed. Head CT: Was reviewed by myself and read by the radiologist showing no acute intracranial abnormalities or skull fractures. Cervical Spine CT: Was reviewed by myself and read by the radiologist showing no acute fractures or subluxations. Radiologist felt there was mild muscle spasm. Right Elbow X-Rays: Were read by myself and the radiologist showing no acute fractures or dislocations. No evidence of soft tissue swelling or joint effusions. Right Forearm X-Rays: Were read by myself and the radiologist showing no acute fractures or dislocations. No soft tissue swelling. Right Wrist X-Rays: Were read by myself and the radiologist showing no acute fractures or dislocations. Mild soft tissue swelling noted over the posterior aspect of the wrist was noted. Right Hand X-Rays: Was read by myself and the radiologist and shows no acute fractures. There is a dislocation of the PIP joint of the little finger. Right Hand X-Rays: Post Reduction: Was read by myself and the radiologist showing persistent dislocation of the fifth PIP joint with now the presence of a tiny avulsion fracture of the head of the fifth proximal phalanx. Right Hand X-Rays: Post Reduction: Was read by myself and the radiologist and shows a successful reduction of the dislocation of the fifth PIP joint. Radiologist also notes a tiny avulsion fracture to the volar surface of the fifth middle phalanx. Right Knee X-Rays: Were read by myself and the radiologist and shows no acute fractures or dislocations. No joint effusions and minimal soft tissue swelling. Right Tibia/Fibula X-Rays: Were read by myself and the radiologist showing no acute fractures or dislocations. Patient was assessed multiple times during her stay in the emergency department. A digital block was performed on the right little finger with 4 mL of buffered 1 % lidocaine. Once anesthesia was confirmed I attempted to reduce her dislocation. Was unsuccessful on the first attempt and a repeat x-ray confirmed that it was not reduced. I went back and reattempted and had good success. Postreduction film shows return to normal anatomical alignment but also to avulsion fractures were noted. Patient was placed in a finger splint of the right little finger. Patient's case was reviewed with Dr. rSivastava; he independently assessed the patient we agreed on diagnostic approach, treatment, disposition and plan. Clinical Impression: Fall. Possible mild concussion. Right little finger PIP joint dislocation. Multiple abrasions. Disposition: Patient discharged home in stable condition accompanied by her ; prior to departure she was reassessed and subjectively reported she was feeling much better. She rated her finger pain 5/10. She does mention that she felt like she might be developing a migraine headache but did not feel her pain was severe and this was similar to her previous. Plan: Patient was encouraged to continue her current medications as prescribed by her primary care providers. Patient was educated on wound care and signs of infection. Patient was encouraged to rest for the next 48 hours and no strenuous activity or alcohol. Patient and family members were educated on signs of head injury. Patient was encouraged to follow-up with her primary care provider for recheck in 3-4 days. Patient was encouraged to follow-up with social media marketing specialist for recheck of her finger dislocation in 5-6 days. Patient was encouraged return the ED for any signs of infection of her abrasions , any signs of worsening head injury or any
== END 2017-10-17 19:01 | disposition home or self-care (01) ==
LOC: C.EDB 14:29
DX: S63.286A Dislocation of proximal interphalangeal joint of right little finger, initial encounter (principal); S50.311A Abrasion of right elbow, initial encounter; S50.811A Abrasion of right forearm, initial encounter; S80.211A Abrasion, right knee, initial encounter; S90.511A Abrasion, right ankle, initial encounter; W10.9XXA Fall (on) (from) unspecified stairs and steps, initial encounter; Y93.K1 Activity, walking an animal; Y99.8 Other external cause status; G25.81 Restless legs syndrome; F41.9 Anxiety disorder, unspecified; F32.9 Major depressive disorder, single episode, unspecified; Z88.2 Allergy status to sulfonamides; Z88.6 Allergy status to analgesic agent; Z91.040 Latex allergy status; Z79.899 Other long term (current) drug therapy

== ENCOUNTER 2017-10-18 03:00 | Emergency (ER) | payer OTHER ==
[~2017-10-18] VITALS: Ht 160 cm; Wt 110.5 kg
[~2017-10-18 03:00] MED LIST changes: -ASPI-390 PO; +BENZ0.5T2 PO; -DICL1GEL12 TOP; -DIPH25CA65 PO; +FLUT0.15 NEB; -IBUP-1050 PO; +OXYC7.5T65 PO; -PHEN-876 PO; +PREG100C PO; -PROM25TA16 PO; -RQP/5 PO
[2017-10-18 03:08] VITALS: TEMP 36.6; Ht 160 cm; Wt 110.5 kg
[2017-10-18] MEDS ORDERED: METOCLOPRAMIDE HCL INJ 5 MG/ML 2 ML VIAL IV STA (03:22)
[2017-10-18] MEDS ORDERED: DiphenhydrAMINE HCL 50 MG/ML VIAL IV STA (03:22)
[2017-10-18] MEDS ORDERED: SODIUM CHLORIDE 0.9% 1000ML 1,000 ML IV STA (03:22)
[2017-10-18 04:01] LABS: HEMATOCRIT 39.2 % (37-47); HEMOGLOBIN 13.1 g/dL (12.0-16.0); IG# 0.05 K/uL (0.00-0.02); LYMPH % 12.9 %; LYMPH ABS # 1.06 K/uL (1.2-3.4); MEAN CELL VOLUME 92.9 fL (80-100); MEAN CORPUSCULAR HGB CONC 33.4 g/dl (32-36); MEAN PLATELET VOLUME 11.2 fL (7.4-10.4); MONO % 6.1 %; NEUT % 80.4 %; NEUT ABS # 6.61 K/uL (1.4-6.5); PLATELET COUNT 245 K/uL (130-400); RED CELL DISTRIBUTION WIDTH CV 13.6 % (11.5-14.5); RED CELL DISTRIBUTION WIDTH SD 45.9 fL (36.4-46.3); WHITE BLOOD COUNT 8.22 K/uL (4.8-10.8)
[2017-10-18 04:27] VITALS: BP 149/70; PULSE 102; O2SAT 98
[2017-10-18 04:27] LABS: CREATININE 0.86 mg/dl (0.60-1.20); POTASSIUM 3.9 mmol/L (3.5-5.1)
[2017-10-18] MEDS ORDERED: MoRPHine SULFATE 4 MG/ML 1 ML CARP\\VIAL IV STA (04:40)
--- NOTE | 2017-10-18 04:43 | EMERGENCY ROOM VISIT NOTE ---
History First contact with patient: 03:15 Chief Complaint: VOMITING Stated Complaint: VERTIGO AND VOMITING AFTER MILD CONCUSSION Nursing Triage Summary: Patient reports that she had a fall yesterday, "I fell down a flight of stairs" . Patient reports that she gets chronic migraines, has vertigo with migraines typically. Tonight patient notes that she has been vomiting "every 10 minutes" since 2200. Patient reports that now it is more of dry heaves "because there is nothing left". Patient was seen in ED yesterday and was told she had a concussion and right pinky finger dislocation. Patient notes that home medication is not helping with head pain, vertigo or nausea. History of Present Illness The patient is a 47 year old female who presents to the Emergency Room with complaints of left temporal headache for the past day after falling down a flight of steps he was seen here earlier today and had CT imaging which is negative. Patient states since then the headache is gotten worse and she has been vomiting. Patient denies new injury. She describes a headache as throbbing, ranging in severity 8 out of 10 throughout the temporal region. Nothing makes it better or worse. Patient does have a history of migraines. Patient also complains of ongoing right hand pain to the fifth digit. This was dislocated and reduced earlier and has 2 avulsion fractures. No new injury to the area. Patient denies numbness, tingling, localized weakness, chest pain, dyspnea, neck stiffness, facial pain, abdominal pain, leg pain. Review of Systems An 10 system review of systems was completed with positives and pertinent negatives listed in the HPI. Past Medical/Surgical History Medical Problems: (1) Anemia (2) Anxiety (3) Cystitides, interstitial, chronic (4) Depression (5) Drug overdose, intentional (6) Migraine (7) PTSD (post-traumatic stress disorder) (8) Restless leg syndrome (9) Suicidal overdose (10) Suicidal overdose (11) Suicide attempt (12) Vertigo Surgical Problems: (1) H/O gastric bypass (2) H/O: hysterectomy (3) History of appendectomy (4) History of tonsillectomy and adenoidectomy (5) Hx of cholecystectomy (6) Previous section Family History Diabetes mellitus FH: cancer FH: diabetes mellitus FH: heart disease Heart disease Hypertension Kidney disease Kidney stones Social History Smoking Status: Never Smoker Alcohol Use: none Drug Use: none Marital Status: Housing Status: lives with family Occupation Status: unemployed, disabled Current/Historical Medications Scheduled Aripiprazole (Aripiprazole), 20 MG PO HS Benztropine Mesylate (Benztropine Mesylate), 0.5 MG PO HS Chlorpromazine Hcl (Thorazine), 25 MG PO TID Chlorpromazine Hcl (Thorazine), 50 MG PO TID Fluticasone Propionate (Nasal) (Flonase Allergy Relief), 2 SPRAYS NEB DAILY Pentosan Polysulfate Sodium (Elmiron), 100 MG PO TID Prazosin Hcl (Prazosin), 2 MG PO HS Pregabalin (Lyrica), 100 MG PO TID Tapentadol Hcl (Nucynta Er), 50 MG PO BID Vortioxetine HBr (Trintellix), 20 MG PO HS Scheduled PRN Eszopiclone (Eszopiclone), 2 MG PO HS PRN for Insomnia Oxycodone/Acetaminophen 7.5MG/325MG (Percocet 7.5MG/325MG), 1 TAB PO DAILY PRN for Moderate Pain Physical Exam Vital Signs Date Time Temp Pulse Resp B/P (MAP) Pulse Ox O2 Delivery O2 Flow Rate FiO2 10/18/17 04:27 102 16 149/70 98 Room Air 10/18/17 03:08 36.6 109 16 147/99 95 Room Air Physical Exam VITALS: Vitals are noted on the nurse's note and reviewed by myself. Vital signs mildly hypertensive GENERAL: Pleasant female who appears in pain, in no acute distress, nondiaphoretic, well-developed well-nourished. SKIN: Multiple bruises to the lower legs and arms. The rest of the skin was without rashes, erythema, edema, or bruising. There is no tenting of the skin. Capillary reflex less than 2 seconds. HEAD: Normocephalic Face: Nontender to palpation. EARS: External auditory canals clear, tympanic membranes pearly estrada without erythema or effusion bilaterally. EYES: Pupils equal round and reactive to light and accommodation. Conjunctivae without injection, sclerae without icterus. Extraocular movements intact. NOSE: Patent, turbinates without inflammation or discharge. No sinus tenderness. MOUTH: Mucous membranes moist. Pharynx without erythema or exudate. Uvula midline. Airway patent. Tongue does not deviate. NECK: Supple without nuchal rigidity. No lymphadenopathy. No thyromegaly. Cervical spine is nontender. No JVD. HEART: Regular rate and rhythm without murmurs gallops or rubs. LUNGS: Clear to auscultation bilaterally without wheezes, rales or rhonchi. No retractions or accessory muscle use. ABDOMEN: Positive bowel sounds x 4. Normal tympanic percussion. Soft, nontender, without masses or organomegaly. Cooper sign negative. No guarding or rebound tenderness. No CVA tenderness MUSCULOSKELETAL: No muscle atrophy, erythema, or edema noted. There is no deformity of the right hand. There is tenderness fifth metacarpal. There is no thenar or hypothenar eminence atrophy. Normal thumb opposition to all fingers. Normal abduction and adduction to resistance of the fingers. Pincer strength 5/5 , dry dip worker strength 5/5. There is no laceration. Capillary refill less than 3 seconds. No tenderness of the wrist. Full range of motion of the wrist. No snuff box tenderness. Radial pulse 2+. NEURO: Patient was alert and oriented to person place and time. Normal sensation to light and sharp touch. No focal neurological deficits. Medical Decision & Procedures Laboratory Results 10/18/17 03:47 Red Blood Count 4.22, Mean Corpuscular Volume 92.9, Mean Corpuscular Hemoglobin 31.0, Mean Corpuscular Hemoglobin Concent 33.4, Mean Platelet Volume 11.2, Neutrophils (%) (Auto) 80.4, Lymphocytes (%) (Auto) 12.9, Monocytes (%) (Auto) 6.1, Eosinophils (%) (Auto) 0.0, Basophils (%) (Auto) 0.0, Neutrophils # (Auto) 6.61, Lymphocytes # (Auto) 1.06, Monocytes # (Auto) 0.50, Eosinophils # (Auto) 0.00, Basophils # (Auto) 0.00 10/18/17 03:47 Test 10/18/17 03:47 White Blood Count 8.22 K/uL (4.8-10.8) Red Blood Count 4.22 M/uL (4.2-5.4) Hemoglobin 13.1 g/dL (12.0-16.0) Hematocrit 39.2 % (37-47) Mean Corpuscular Volume 92.9 fL (80-100) Mean Corpuscular Hemoglobin 31.0 pg (25-34) Mean Corpuscular Hemoglobin Concent 33.4 g/dl (32-36) Platelet Count 245 K/uL (130-400) Mean Platelet Volume 11.2 fL (7.4-10.4) Neutrophils (%) (Auto) 80.4 % Lymphocytes (%) (Auto) 12.9 % Monocytes (%) (Auto) 6.1 % Eosinophils (%) (Auto) 0.0 % Basophils (%) (Auto) 0.0 % Neutrophils # (Auto) 6.61 K/uL (1.4-6.5) Lymphocytes # (Auto) 1.06 K/uL (1.2-3.4) Monocytes # (Auto) 0.50 K/uL (0.11-0.59) Eosinophils # (Auto) 0.00 K/uL (0-0.5) Basophils # (Auto) 0.00 K/uL (0-0.2) RDW Standard Deviation 45.9 fL (36.4-46.3) RDW Coefficient of Variation 13.6 % (11.5-14.5) Immature Granulocyte % (Auto) 0.6 % Immature Granulocyte # (Auto) 0.05 K/uL (0.00-0.02) Anion Gap 6.0 mmol/L (3-11) Est Creatinine Clear Calc Drug Dose 94.5 ml/min Estimated GFR () 91.9 Estimated GFR (Non- 79.3 BUN/Creatinine Ratio 18.7 (10-20) Calcium Level 9.0 mg/dl (8.5-10.1) Medications Administered Medications (Trade) Dose Ordered Sig/Gary Route Start Time Stop Time Status Last Admin Dose Admin Metoclopramide HCl (Reglan Inj) 10 mg NOW STAT IV 10/18/17 03:22 10/18/17 03:25 DC 10/18/17 03:40 10 MG Diphenhydramine HCl (Benadryl Inj) 25 mg NOW STAT IV 10/18/17 03:22 10/18/17 03:25 DC 10/18/17 03:40 25 MG Sodium Chloride 1,000 ml @ 999 mls/hr Q1H1M STAT IV 10/18/17 03:22 10/18/17 04:22 DC 10/18/17 03:40 999 MLS/HR ED Course Prior records/ancillary studies reviewed. Triage Nursing notes reviewed. Additional history obtained from family The patient's history was concerning for traumatic head injury Differential diagnosis: Etiologies such as concussion, contusion, fracture, subdural hematoma, epidural hematoma, intraparenchymal hemorrhage, as well as other traumatic pathologies were entertained. Physical examination findings: As above. ER treatment provided: Reglan, Benadryl On reassessment the patient felt better. Diagnostics interpreted by me: The labs revealed stable H&H. Mild hyperglycemia without DKA Imaging studies: CT HEAD: No ICH, mass effect or edema. No evidence of acute cortical stroke. Visualized sinuses and mastoid air cells are clear. Radiologist: Wilfrid Rodriguez M.D. Prior imaging from earlier today was reviewed. Finger x-ray concerning for middle phalanx fracture per my interpretation. Head injury evaluation: GCS <15 two hours after injury: no Suspected open or depressed skull fracture: no Any sign of basilar skull fracture: hemotympanum, raccoon eyes (intraorbital bruising), Mercado sign (retroauricular bruising), or cerebrospinal fluid leak, alen- or rhinorrhea: no Two or more episodes of vomiting: yes Sixty-five years of age or older: no Amnesia for events occurring more than 30 minutes prior to impact: no Dangerous mechanism (pedestrian struck by motor vehicle, occupant ejected from motor vehicle, fall from =3 feet or =5 stairs): yes Neurologic deficit: no Seizure: no Presence of bleeding diathesis or oral anticoagulant use: no Return visit for reassessment of a head injury: yes Total:(any yes, then CT) positive It appears the patient has a concussion and finger fracture. Patient was splinted and neurovascular status was rechecked after placement and is intact. She was advised to follow-up with orthopedics. Patient had worsening symptoms so repeat imaging was ordered. This is unremarkable. Patient was counseled on head injury signs and symptoms and verbalized understanding of this. She is advised to follow-up the concussion clinic here in town and see orthopedics for her hand injury. She is advised to rest, stay well-hydrated and follow-up family care this week or here in the ER sooner for severe pain, fevers, vomiting , weakness, worsening signs or symptoms or as needed. Patient was neurovascularly and neurologically intact. She is well-appearing. By the evaluation outlined above emergent etiologies such as subdural hematoma , epidural hematoma, intraparenchymal hemorrhage, as well as others were deemed relatively unlikely. The pt informed about the findings as listed above. All questions were answered and pleased with the treatment. Return instructions were outlined and the patient was discharged in stable condition. Referral: The patient was referred back to their primary care physician and orthopedics for follow-up in 2 to 3 days for a recheck of the current condition. Case reviewed with my attending The chart was completed utilizing [employer] voice recognition software. Grammatical errors, random word insertions, pronoun errors, and incomplete sentences are an occassional consequence of this system due to software limitations, ambient noise, and hardware issues. Any formal questions or concerns about the content, text, or information contained within the body of this dictation should be directly addressed to the physician general assistant for clarification. Medical Decision As above [place] Drug Monitoring Program Search Results: patient reviewed within database, see additional documentation (Patient is on chronic narcotics) Head Trauma GCS Score: 15 Medication Reconcilliation Current Medication List: was personally reviewed by me Blood Pressure Screening Patient's blood pressure: Elevated blood pressure Blood pressure disposition: Elevated BP felt to be situational Impression Primary Impression: Concussion Additional Impression: Finger fracture Departure Information Dispostion Home / Self-Care Condition GOOD Referrals Milagro Steiner A. P.A. (PCP) Patient Instructions My [facility] Additional Instructions Your blood sugar was slightly elevated today. Repeat this with family care. Read head injury handout and return for any symptoms. Tylenol 1000 mg as needed for pain (Maximum 3000 mg Tylenol in 24 hr period). Avoid alcohol and contact sports/activities for one week and follow up with family doctor prior to returning to these activities if still symptomatic. Ice and elevate head. If your symptoms persist more than a week then follow up with the concussion clinic. Call [phone]. Follow-up with family care doctor in 2-3 days. Call for an appointment. Return to ER sooner for headache, fevers, confusion, worsening signs or symptoms or as needed. Hand injury: DO NOT drive, drink alcohol, operate machinery, or perform dangerous activities today. You were given medications in the ER that can affect your ability to safely function or operate a vehicle. Oxycodone (OxyIR) 5mg: Take 1-2 pills every four hours for breakthrough pain. Avoid alcohol, operating machinery or dangerous equipment, working on ladders or roofs, DRIVING, or situations where being under the influence may be dangerous. It is recommended to use an [id number] stool softener such as Colace, 100mg twice daily while taking this medication to avoid constipation. Acetaminophen(Tylenol) may be used for fever or pain. Use 1000mg every six hours as needed. Avoid using more than 3000mg in a 24 hour period. This medication can be taken if you need to drive, work, or perform activities which may be dangerous when taking narcotic pain medication. Ice compresses for 20 minutes at a time four times daily for 2-3 days. Rest and elevate your injury. Wear finger splint until orthopedics tells you otherwise. Do not have it so tight that you cannot feel your finger. Continue current medications. Return to the ER immediately for any numbness, tingling, severe pain, extreme swelling in the extremity or as needed. Call Orthopedics tomorrow to arrange follow up for your injury. Problem Qualifiers Primary Impression: Concussion Encounter type: initial encounter Loss of consciousness presence/duration: without LOC Qualified Codes: S06.0X0A - Concussion without loss of consciousness, initial encounter
[2017-10-18] MEDS ORDERED: OXYCODONE IR HOME PACK PO ONE (04:45)
--- NOTE | 2017-10-18 06:34 | DIAGNOSTIC IMAGING REPORT ---
R FINGER(S) MIN 2 VIEWS ROUTINE CLINICAL HISTORY: pain, 5th pain COMPARISON: None. DISCUSSION: Degenerative change proximal phalangeal joint. Minimal associated synovial calcifications. Moderate localized soft tissue edematous change. Possible marginal erosion lateral aspect proximal phalanx. IMPRESSION: Degenerative change proximal interphalangeal joint associated with a small amount of soft tissue edema. Possible synovial calcification. The above report was generated using voice recognition software. It may contain grammatical, syntax or spelling errors. Electronically signed by: Sudhir Portillo M.D. 10/18/2017 6:33 AM Dictated Date/Time: 10/18/2017 6:30 AM
--- NOTE | 2017-10-18 07:06 | DIAGNOSTIC IMAGING REPORT ---
HEAD WITHOUT CONTRAST (CT) CT DOSE: 537.48 mGy.cm HISTORY: Mental status change ROLLE, N/V, fall TECHNIQUE: Multiaxial CT images of the head were performed without the use of intravenous contrast. A dose lowering technique was utilized adhering to the principles of ALARA. Comparison: None. Findings: The paranasal sinuses and mastoid air cells are clear. The calvarium and skull base are intact. The ventricles and sulci are within normal limits. There is no mass, hematoma, midline shift, or acute infarct. Impression: No acute intracranial abnormality. The above report was generated using voice recognition software. It may contain grammatical, syntax or spelling errors. Electronically signed by: Sudhir Portillo M.D. 10/18/2017 7:05 AM Dictated Date/Time: 10/18/2017 7:04 AM
== END 2017-10-18 04:56 | disposition home or self-care (01) ==
LOC: C.EDB 03:02
DX: S06.0X0D Concussion without loss of consciousness, subsequent encounter (principal); S62.626D Displaced fracture of middle phalanx of right little finger, subsequent encounter for fracture with routine healing; W10.9XXD Fall (on) (from) unspecified stairs and steps, subsequent encounter; F41.9 Anxiety disorder, unspecified; F32.9 Major depressive disorder, single episode, unspecified; F43.10 Post-traumatic stress disorder, unspecified; G25.81 Restless legs syndrome; Z98.84 Bariatric surgery status; Z90.710 Acquired absence of both cervix and uterus; Z90.49 Acquired absence of other specified parts of digestive tract; Z83.3 Family history of diabetes mellitus; Z80.9 Family history of malignant neoplasm, unspecified; Z82.49 Family history of ischemic heart disease and other diseases of the circulatory system; Z84.1 Family history of disorders of kidney and ureter; Z79.899 Other long term (current) drug therapy; I10 Essential (primary) hypertension

== ENCOUNTER 2021-01-31 16:34 | Inpatient (IN) ==
[2021-01-31] MEDS ORDERED: dexAMETHasone**PF** 10 MG/ML VIAL IV ONE (17:20)
[2021-01-31] MEDS ORDERED: PROCHLORPERAZINE 2 ML IV ONE (17:20)
[2021-01-31] MEDS ORDERED: SODIUM CHLORIDE 0.9% 1000ML 500 ML IV ONE (17:20)
--- NOTE | 2021-01-31 17:25 | Emergency Department Note ---
Impression & Plan 2019 novel coronavirus-infected pneumonia (NCIP), Nausea & vomiting, Migraine, Hypoxia ED Provider Note Provider: Andres Srivastava MD DATE OF SERVICE: 01/31/2021 CHIEF COMPLAINT: Shortness of breath, nausea, headaches HISTORY OF PRESENT ILLNESS: Patient is a 50-year-old female past medical history of interstitial cystitis, asthma, PTSD, anxiety, migraines, mast cell disorder and restless leg syndrome presenting here today reporting worsening of Covid symptoms. Patient is not vaccinated. Reports tested positive lastly for Covid I did see her last week with migrainous symptoms and nausea and vomiting issues. Patient improved when I saw her and she was discharged home. Patient states she is had some worsening shortness of breath and cough with continued fevers and headaches. States her taste has been altered. Patient states she is noticed her pulse ox over the last day or so has dropped into the 80s. Patient's is significantly admitted in the ICU for Covid. Patient denies falls or syncope. Patient states has not been able to eat much but has been able to drink some. Diarrhea has declined a bit. Still with some intermittent fevers. Utilizing some Tylenol at home last around 3 PM. Patient again reports that her migraines have flared to some degree. REVIEW OF SYSTEMS: A total of 10 review of systems was obtained and negative except as stated above in the HPI. PAST MEDICAL HISTORY: As noted above MEDICATIONS: Reviewed home medications SOCIAL HISTORY: Non-smoker, PHYSICAL EXAM: GENERAL: alert and oriented in no acute distress on stretcher fatigued appearance Head: normocephalic and atraumatic EYES: No injection, discharge or icterus. NECK: Trachea midline. LUNGS: Airway patent. No retractions. Breath sounds clear HEART: Regular rate and rhythm. No chest wall tenderness ABDOMEN: Soft and non-tender, without guarding or rebound. SKIN: Acyanotic, warm, dry, without rashes EXTREMITIES: Without swelling, tenderness or deformity NEUROLOGICAL: No focal deficits. No aphasia. No facial droop or slurred speech. Ambulatory. EK bpm normal sinus rhythm. No PVC or PAC. QTc 484. No acute ST segment elevation or depression. CONTINUOUS CARDIAC MONITORING: was ordered and showed a heart rate of 60s to 80sbpm in normal sinus rhythm Patient's laboratory studies and imaging reviewed. Differential includes Infection, dehydration, metabolic abnormality, hypo/hyperglycemia, electrolyte disturbance, anemia, hypoxia, cardiac sources, intracerebral event, toxicologic, neurologic, as well as other pathologies. IMPRESSION/MEDICAL DECISION MAKING: Patient 9 days of Covid symptoms now hypoxic. 80s on room air and desats into the high 70s with ambulation to the bathroom here. Patient not vaccinated. Given some steroids here. X-ray and basic labs sent. D-dimer sent. Given very small amount of IV fluid. Treated nausea symptoms with some Compazine. PCR Covid test sent for confirmation but reports prior positive history of COVID 19. X-rays some worsened interstitial finding consistent with Covid. Mild hypokalemia. Mild ALT AST elevation. CRP mildly elevated. No troponin elevation. No evidence of renal dysfunction. No anemia or leukocytosis. Given some IV potassium supplementation. D-dimer returns not significant elevated and we will not pursue CTA at this time as my suspicion for PE is low with this. Only on several liters of O2 supplementation but given this and her weakness and hypokalemia which was supplemented feel that further care here at the hospital is indicated. Patient was in agreement. Hospitalist contacted. DIAGNOSIS: COVID-19 pneumonia, nausea, hypoxia DISPOSITION: Hospitalist will evaluate Patient was agreeable with this plan. 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; receives transfusions weekly" Anxiety Cystitides, interstitial, chronic Depression FH: cholecystectomy Obstructive sleep apnea syndrome Restless leg syndrome Vertigo Surgical History H/O section H/O dilation and curettage H/O: hysterectomy S/P gastric surgery S/P tonsillectomy Family History Father Diabetes Hypertension Malignant neoplasm of esophagus EHSAN (obstructive sleep apnea) Mother Cardiac disorder Aunt Kidney stones Social History Smoking Status: Never smoker Hx Alcohol Use: Yes marital status: Current Living Situation: Spouse current occupational status: unemployed and disabled Feels Safe at Home: Yes Allergies Allergies Allergy/AdvReac Type Severity Reaction Status Date / Time banana Allergy Severe ANAPHYLAXIS Verified 01/31/21 19:55 butorphanol Allergy Severe WANTED TO Verified 01/31/21 19:55 STOP BREATHING dog dander Allergy Severe anaphylacti Verified 01/31/21 19:55 c kiwi Allergy Severe Anaphylaxis Verified 01/31/21 19:55 pecan nut Allergy Severe ANAPHYLAXIS Verified 01/31/21 19:55 pistachio nut Allergy Severe ANAPHYLAXIS Verified 01/31/21 19:55 Sulfa (Sulfonamide Allergy Severe Hives Verified 01/31/21 19:55 Antibiotics) walnut Allergy Severe Anaphylaxis Verified 01/31/21 19:55 cat dander Allergy Intermediate Hives Verified 01/31/21 19:55 latex Allergy Unknown itchy Verified 01/31/21 19:55 Home Meds Home Medications Medication Instructions Recorded Confirmed ferrous sulfate 325 mg (65 mg 325 mg PO BID tab 11/21/18 01/31/21 iron) tablet diclofenac sodium 1 % topical gel 1 ea TOPICAL UD gm 03/30/19 01/31/21 ropinirole 1 mg tablet 0.5 mg PO TIDM #90 tab 03/30/19 01/31/21 aspirin 81 mg tablet,delayed 81 mg PO DAILY 10/22/19 01/31/21 release albuterol sulfate 90 mcg/actuation 2 puff INHALATION Q4H PRN 01/31/21 01/31/21 aerosol inhaler baclofen 20 mg tablet 20 mg PO TID PRN 01/31/21 01/31/21 benzonatate 100 mg capsule 200 mg PO QAM 01/31/21 01/31/21 bupropion HCl 150 mg tablet,12 hr 150 mg PO HS 01/31/21 01/31/21 sustained-release clonazepam 0.5 mg tablet 0.5 mg PO DAILY 01/31/21 01/31/21 eszopiclone 2 mg tablet 2 mg PO HS 01/31/21 01/31/21 fluoride (sodium) 1.1 % dental gel 1 applic DENTAL DAILY 01/31/21 01/31/21 (PreviDent 5000 Dry Mouth) fluticasone propionate 50 2 spray INTRANASAL DAILY 01/31/21 01/31/21 mcg/actuation nasal spray,suspension montelukast 10 mg tablet 10 mg PO QAM 01/31/21 01/31/21 omeprazole 40 mg capsule,delayed 40 mg PO DAILYBB 01/31/21 01/31/21 release pentosan polysulfate sodium 100 mg 100 mg PO TID 01/31/21 01/31/21 capsule (Elmiron) semaglutide (weight loss) 0.25 0.25 mg SUBCUT WK 01/31/21 01/31/21 mg/0.5 mL subcutaneous pen injector (Wegovy) vortioxetine 20 mg tablet 20 mg PO HS 01/31/21 01/31/21 (Trintellix) Previous Rx's Medication Instructions Recorded CPAP Machine #1 ea 04/16/19 epinephrine 0.3 mg/0.3 mL 0.3 mg IM ONCE PRN #1 dose pk 11/30/19 injection, auto-injector hydroxyzine HCl 25 mg tablet 50 mg PO .qhs #60 tab 12/28/19 ipratropium bromide 42 mcg (0.06 2 spray INTRANASAL DAILY #15 ml 01/11/20 %) nasal spray azelastine 137 mcg (0.1 %) nasal See Rx Instructions .ROUTE 11/18/20 spray aerosol .COMPLEX #30 ml beclomethasone dipropionate 80 1 inh INHALATION BID #10.6 g 12/29/20 mcg/actuation HFA breath activated aerosol (Qvar RediHaler) mupirocin 2 % topical ointment 1 applic TOPICAL .COMPLEX #15 g 12/29/20 omalizumab 150 mg subcutaneous 300 mg SUBCUT .COMPLEX #2 ea 01/17/21 solution (Xolair) Results & Data (ED) Vital Signs Vital Signs - 24 hr 01/31/21 17:02 01/31/21 17:12 01/31/21 17:30 Temperature 36.8 C Temperature Source Skin Pulse Rate 90 Pulse Rate [Left] 71 Pulse Rhythm [Left] Regular Pulse Strength [Left] Normal Respiratory Rate 18 20 Respiratory Effort / Characteristics Non-Labored Respiratory Depth Normal Respiratory Pattern Blood Pressure 117/79 Blood Pressure [Left Arm] 138/83 Blood Pressure Mean 91 Blood Pressure Mean [Left Arm] 101 Blood Pressure Position [Left Arm] Sitting Pulse Oximetry 83 L 78 L 98 Oxygen Delivery Method Room Air Room Air Nasal Cannula Oxygen Flow Rate 4 Sepsis Recent Fever Within 48 Hours Yes Sepsis New/Unexplained Change in Mental Status No Sepsis Action Taken by Nursing No Action Required Oxygen Flow Rate - Titration 4 Pulse Oximetry Post Tiitration 99 01/31/21 17:32 01/31/21 17:50 01/31/21 19:00 Temperature Temperature Source Pulse Rate Pulse Rate [Left] 61 Pulse Rhythm [Left] Regular Pulse Strength [Left] Normal Respiratory Rate 20 Respiratory Effort / Characteristics Non-Labored Non-Labored Respiratory Depth Normal Normal Respiratory Pattern Regular Blood Pressure Blood Pressure [Left Arm] 132/78 Blood Pressure Mean Blood Pressure Mean [Left Arm] 96 Blood Pressure Position [Left Arm] Lying Pulse Oximetry 98 97 Oxygen Delivery Method Nasal Cannula Nasal Cannula Oxygen Flow Rate 4 3 Sepsis Recent Fever Within 48 Hours Sepsis New/Unexplained Change in Mental Status Sepsis Action Taken by Nursing Oxygen Flow Rate - Titration Pulse Oximetry Post Tiitration Laboratory Data Result diagrams: 01/31/21 17:21 01/31/21 17:21 Lab Results 01/31/21 01/31/21 01/31/21 Range/Units 17:21 17: 17:21 WBC 6.85 (4.8-10.8) K/uL RBC 4.54 (4.2-5.4) M/uL Hgb 13.5 (12.0-16.0) g/dL Hct 41.7 (37-47) % MCV 91.9 (80-100) fL MCH 29.7 (25-34) pg MCHC 32.4 (32-36) g/dL RDW Std Deviation 46.0 (36.4-46.3) fL RDW Coeff of Arielle 13.7 (11.5-14.5) % Plt Count 263 (130-400) K/uL MPV 11.1 H (7.4-10.4) fL Neutrophils % (Manual) 79.2 % Lymphocytes % (Manual) 12.1 % Monocytes % (Manual) 5.2 % Metamyelocytes % (Man) 2.6 % Myelocytes % (Man) 0.9 % Neutrophils # (Manual) 5.43 (1.4-6.5) K/uL Total Absolute Neuts 5.43 (1.4-6.5) K/uL Lymphocytes # (Manual) 0.83 L (1.2-3.4) K/uL Total Abs Lymphocytes 0.83 L (1.2-3.4) K/uL Monocytes # (Manual) 0.36 (0.11-0.59) K/uL Metamyelocytes # (Man) 0.18 H (0-0) K/uL Myelocytes # (Manual) 0.06 H (0-0) K/uL RBC Morphology Unremarkable PT 9.5 (9.0-12.0) Seconds INR 0.9 (0.9-1.1) APTT 35.7 H (21.0-31.0) Seconds PTT Ratio 1.4 D-Dimer 500 (0-500) ug/L FEU Sodium 139 (136-145) mmol/L Potassium 3.0 L (3.5-5.1) mmol/L Chloride 99 (98-107) mmol/L Carbon Dioxide 29 (21-32) mmol/L Anion Gap 10.0 (3-11) BUN 7 (7-18) mg/dl Creatinine 0.84 (0.6-1.2) mg/dl Est Cr Clr Drug Dosing 92.8 ml/min Est GFR ( Amer) 92.6 ml/min Est GFR (Non-Af Amer) 79.9 ml/min BUN/Creatinine Ratio 8.2 L (10-20) Glucose 113 H (70-99) mg/dl Calcium 8.6 (8.5-10.1) mg/dl Magnesium 2.6 H (1.8-2.4) mg/dl Total Bilirubin 0.4 (0.2-1) mg/dl AST 104 H (15-37) U/L ALT 92 H (12-78) U/L Alkaline Phosphatase 84 (45-117) U/L Troponin I < 0.015 (0-0.045) ng/ml C-Reactive Protein 6.22 H (0-0.29) mg/dl Total Protein 7.2 (6.4-8.2) gm/dl Albumin 3.2 L (3.4-5.0) gm/dl Globulin 4.0 (2.5-4.0) gm/dl Albumin/Globulin Ratio 0.8 L (0.9-2) TSH 5.220 H (0.300-4.500) uIu/ml Free T4 1.10 (0.8-1.6) ng/dl Urine Color Urine Appearance (Clear) Urine pH (4.5-7.5) Ur Specific [place] (1.000-1.030) Urine Protein (Negative) Urine Glucose (UA) (Negative) Urine Ketones (Negative) Urine Blood (Negative) Urine Nitrite (Negative) Urine Bilirubin (Negative) Urine Urobilinogen (Negative) Ur Leukocyte Esterase (Negative) Urine WBC (Auto) (0-5) /hpf Urine RBC (Auto) (0-4) /hpf U Hyaline Cast (Auto) (0-5) /lpf U Epithel Cells (Auto) (0-5) /lpf Urine Bacteria (Auto) (Negative) SARS-CoV-2 (PCR) (Negative) 01/31/21 01/31/21 Range/Units 17:21 19:15 WBC (4.8-10.8) K/uL RBC (4.2-5.4) M/uL Hgb (12.0-16.0) g/dL Hct (37-47) % MCV (80-100) fL MCH (25-34) pg MCHC (32-36) g/dL RDW Std Deviation (36.4-46.3) fL RDW Coeff of Arielle (11.5-14.5) % Plt Count (130-400) K/uL MPV (7.4-10.4) fL Neutrophils % (Manual) % Lymphocytes % (Manual) % Monocytes % (Manual) % Metamyelocytes % (Man) % Myelocytes % (Man) % Neutrophils # (Manual) (1.4-6.5) K/uL Total Absolute Neuts (1.4-6.5) K/uL Lymphocytes # (Manual) (1.2-3.4) K/uL Total Abs Lymphocytes (1.2-3.4) K/uL Monocytes # (Manual) (0.11-0.59) K/uL Metamyelocytes # (Man) (0-0) K/uL Myelocytes # (Manual) (0-0) K/uL RBC Morphology PT (9.0-12.0) Seconds INR (0.9-1.1) APTT (21.0-31.0) Seconds PTT Ratio D-Dimer (0-500) ug/L FEU Sodium (136-145) mmol/L Potassium (3.5-5.1) mmol/L Chloride (98-107) mmol/L Carbon Dioxide (21-32) mmol/L Anion Gap (3-11) BUN (7-18) mg/dl Creatinine (0.6-1.2) mg/dl Est Cr Clr Drug Dosing ml/min Est GFR ( Amer) ml/min Est GFR (Non-Af Amer) ml/min BUN/Creatinine Ratio (10-20) Glucose (70-99) mg/dl Calcium (8.5-10.1) mg/dl Magnesium (1.8-2.4) mg/dl Total Bilirubin (0.2-1) mg/dl AST (15-37) U/L ALT (12-78) U/L Alkaline Phosphatase (45-117) U/L Troponin I (0-0.045) ng/ml C-Reactive Protein (0-0.29) mg/dl Total Protein (6.4-8.2) gm/dl Albumin (3.4-5.0) gm/dl Globulin (2.5-4.0) gm/dl Albumin/Globulin Ratio (0.9-2) TSH (0.300-4.500) uIu/ml Free T4 (0.8-1.6) ng/dl Urine Color Yellow Urine Appearance Clear (Clear) Urine pH 6.5 (4.5-7.5) Ur Specific [place] 1.013 (1.000-1.030) Urine Protein 1+ H (Negative) Urine Glucose (UA) Negative (Negative) Urine Ketones Negative (Negative) Urine Blood 1+ H (Negative) Urine Nitrite Negative (Negative) Urine Bilirubin Negative (Negative) Urine Urobilinogen Negative (Negative) Ur Leukocyte Esterase Negative (Negative) Urine WBC (Auto) 1-5 (0-5) /hpf Urine RBC (Auto) 0-4 (0-4) /hpf U Hyaline Cast (Auto) 1-5 (0-5) /lpf U Epithel Cells (Auto) 10-20 H (0-5) /lpf Urine Bacteria (Auto) Negative (Negative) SARS-CoV-2 (PCR) POSITIVE A* (Negative) Administered Medications Potassium Chloride 40 meq/ (Sodium Chloride) 1,020 mls @ 75 mls/hr IV .[id number] MARTHA Stop: 03/02/21 21:18 Last Admin: 01/31/21 23:02 Dose: 75 mls/hr Documented by: [id number] Discontinued Medications Acetaminophen (Acetaminophen 325 Mg Tab) 325 mg PO NOW STA Stop: 01/31/21 21:14 Last Admin: 01/31/21 21:57 Dose: 325 mg Documented by: [id number] Dexamethasone Sodium Phosphate (DexamethasonePf 10 Mg/Ml Vial) 6 mg IV NOW ONE Stop: 01/31/21 17:21 Last Admin: 01/31/21 17:41 Dose: 6 mg Documented by: [id number] Prochlorperazine (Compazine) 2 mls @ 1 mls/min IV ONE ONE Stop: 01/31/21 17:21 Last Admin: 01/31/21 17:41 Dose: 1 mls/min Documented by: [id number] Sodium Chloride (Nss 1000ml) 500 mls @ 999 mls/hr IV .Q31M ONE Stop: 01/31/21 17:50 Last Infusion: 01/31/21 18:54 Dose: 0 mls/hr Documented by: [id number] Admin: 01/31/21 17:41 Dose: 999 mls/hr Documented by: [id number] Potassium Chloride (K Patricio / Wtr) 10 meq in 100 mls @ 100 mls/hr IV Q1H MARTHA Stop: 01/31/21 20:29 Last Admin: 01/31/21 20:35 Dose: Not Given Documented by: [id number] Infusion: 01/31/21 20:34 Dose: 0 mls/hr Documented by: [id number] Admin: 01/31/21 18:54 Dose: 100 mls/hr Documented by: [id number] Doxycycline Hyclate 100 mg/ (Dextrose) 110 mls @ 50 mls/hr IV NOW STA Stop: 01/31/21 23:35 Last Admin: 01/31/21 21:57 Dose: 50 mls/hr Documented by: [id number] Remdesivir 200 mg/ Sodium (Chloride) 250 mls @ 125 mls/hr IV ONE STA; Protocol Stop: 01/31/21 23:24 Last Admin: 01/31/21 22:29 Dose: 125 mls/hr Documented by: [id number] Potassium Chloride (Potassium Chloride Crtab 20 Meq Tabcr) 40 meq PO NOW STA Stop: 01/31/21 19:37 Last Admin: 01/31/21 20:01 Dose: 40 meq Documented by: [id number] Imaging Data Radiologist's Impression: Chest X-Ray 01/31/21 17:11 XR chest 1V portable HISTORY: 50 years-old Female Dyspnea, COVID acute cough. COVID Positive. COMPARISON: Chest radiograph 01/27/2021 TECHNIQUE: Portable AP view of the chest FINDINGS: Cardiac mediastinal and hilar silhouettes are unchanged. Interstitial coarsening with ill-defined bilateral airspace opacities have progressively worsened. No pn eumothorax or pleural effusion. No acute fracture. IMPRESSION: Mild progressive worsening of the interstitial coarsening with ill- defined airspace opacities suggestive of viral pneumonia. ACT 112: Negative or not required by law. The above report was generated using voice recognition software. It may contain grammatical, syntax or spelling errors. Electronically signed by: Teodoro Sinha M.D. 01/31/2021 5:45 PM Discharge Plan Visit Data Chief Complaint: Shortness of Breath/Dyspnea Stated Complaint: SOB ED Provider: Andres Srivastava Discharge Problem: 2019 novel coronavirus-infected pneumonia (NCIP), Nausea & vomiting, Migraine, Hypoxia Patient Disposition: Being Evaluated by Hospitalist Discharge Problem: Nausea & vomiting Qualifiers: Vomiting type: unspecified Vomiting Intractability: non-intractable Qualified Code(s): R11.2 - Nausea with vomiting, unspecified Migraine Qualifiers: Migraine type: unspecified Status migrainosus presence: without status migrainosus Intractability: not intractable Qualified Code(s): G43.909 - Migraine, unspecified, not intractable, without status migrainosus
[2021-01-31 17:31] LABS: Hematocrit (blood only) 41.7 % (37-47); Hemoglobin 13.5 g/dL (12.0-16.0); Mean Corpuscular Hemoglobin 29.7 pg (25-34); Mean Corpuscular Hgb Conc 32.4 g/dL (32-36); Mean Corpuscular Volume 91.9 fL (80-100); Mean Platelet Volume 11.1 fL (7.4-10.4); Platelet Count 263 K/uL (130-400); RDW Coefficient of Variation 13.7 % (11.5-14.5); Red Blood Count 4.54 M/uL (4.2-5.4); White Blood Count 6.85 K/uL (4.8-10.8)
--- NOTE | 2021-01-31 17:46 | XRay Report ---
XR chest 1V portable HISTORY: 50 years-old Female Dyspnea, COVID acute cough. COVID Positive. COMPARISON: Chest radiograph 01/27/2021 TECHNIQUE: Portable AP view of the chest FINDINGS: Cardiac mediastinal and hilar silhouettes are unchanged. Interstitial coarsening with ill-defined shira ateral airspace opacities have progressively worsened. No pneumothorax or pleural effusion. No acute fracture. IMPRESSION: Mild progressive worsening of the interstitial coarsening with ill-defined airspace opaci ties suggestive of viral pneumonia. ACT 112: Negative or not required by law. The above report was generated using voice recognition software. It may contain grammatical, syntax o r spelling errors. Electronically signed by: Teodoro Sinha M.D. 01/31/2021 5:45 PM
[2021-01-31 17:55] LABS: Alanine Aminotransferase 92 U/L (12-78); Albumin Level 3.2 gm/dl (3.4-5.0); Aspartate Aminotransferase 104 U/L (15-37); BUN Creatinine Ratio 8.2 (10-20); Blood Urea Nitrogen 7 mg/dl (7-18); C Reactive Protein 6.22 mg/dl (0-0.29); Calcium 8.6 mg/dl (8.5-10.1); Carbon Dioxide 29 mmol/L (21-32); Chloride 99 mmol/L (98-107); Creatinine Clr Calc Pharmacy 92.8 ml/min; Est GFR (African American) 92.6 ml/min; Est GFR (Non-African American) 79.9 ml/min; Glucose 113 mg/dl (70-99); Magnesium 2.6 mg/dl (1.8-2.4); Sodium 139 mmol/L (136-145)
[2021-01-31 18:04] LABS: ALC (manual) 0.83 K/uL (1.2-3.4); ANC (manual) 5.43 K/uL (1.4-6.5); Lymphocytes # (manual) 0.83 K/uL (1.2-3.4); Lymphocytes % (manual) 12.1 %; Metamyelocytes # (manual) 0.18 K/uL (0-0); Metamyelocytes % (manual) 2.6 %; Monocytes # (manual) 0.36 K/uL (0.11-0.59); Monocytes % (manual) 5.2 %; Myelocytes # (manual) 0.06 K/uL (0-0); Myelocytes % (manual) 0.9 %; Neutrophils # (manual) 5.43 K/uL (1.4-6.5); Neutrophils % (manual) 79.2 %; RBC Morphology Unremarkable
[2021-01-31 18:06] LABS: Albumin Globulin Ratio 0.8 (0.9-2); Alkaline Phosphatase 84 U/L (45-117); Bilirubin,Total 0.4 mg/dl (0.2-1); Total Protein 7.2 gm/dl (6.4-8.2); Troponin I < 0.015 ng/ml (0-0.045)
[2021-01-31 18:46] LABS: D Dimer 500 ug/L FEU (0-500); INR 0.9 (0.9-1.1); Partial Thromboplastin Ratio 1.4; Partial Thromboplastin Time 35.7 Seconds (21.0-31.0); Prothrombin Time 9.5 Seconds (9.0-12.0)
[2021-01-31] MEDS: POTASSIUM CHLORIDE / WTR 10 MEQ/100 ML PLCT IV SCH ×2 (18:54→20:35)
[2021-01-31 19:36] LABS: Appearance Urine Clear (Clear); Bacteria Urine Automated Negative (Negative); Bilirubin Urine Negative (Negative); Blood Urine 1+ (Negative); Color Urine Yellow; Glucose Urine UA Negative (Negative); Ketones Urine Negative (Negative); Leukocyte Esterase Urine Negative (Negative); Nitrite Urine Negative (Negative); Protein Urine 1+ (Negative); RBC Urine Automated 0-4 /hpf (0-4); Specific Gravity Urine 1.013 (1.000-1.030); Urobilinogen Urine Negative (Negative); pH Urine 6.5 (4.5-7.5)
[2021-01-31] MEDS ORDERED: POTASSIUM CHLORIDE CRTAB 20 MEQ TABCR PO STA ×2 (19:36→21:19)
[2021-01-31] MEDS ORDERED: ACETAMINOPHEN 325 MG TAB PO STA ×2 (21:06→21:13)
--- NOTE | 2021-01-31 21:06 | History & Physical Report ---
Date of Service January 31, 2021 Assessment & Plan (1) Acute hypoxemic respiratory failure: Plan: Secondary to severe COVID-19 pneumonia Superimposed bacterial infection, no sepsis for now hx central sleep apnea as per records migraine/history pseudotumor cerebri, patient currently with headache anxiety/mood disorder, at baseline history of gastric bypass mast cell disorder/chronic urticaria as per records, patient follows with [facility] allergologist interstitial cystitis, stable on regimen prediabetes, hemoglobin A1c 5.16 November 2020 Hypokalemia secondary to diarrhea ro stool C. difficile Medical telemetry Supplemental O2 Decadron and Remdesivir initial dose for severe COVID-19 pneumonia. (Patient was counseled regarding potential adverse effects from Remdesivir therapy and provided with patient education sheet.) Subsequent doses of remdesivir contingent on LFTs tomorrow a.m. Doxycycline for superimposed bacterial infection Pulmonary consult if without improvement. Replace potassium Stool C. difficile DVT prophylaxis per Lovenox subcu Full code Patient requests for her mother to be given periodic updates. Ms. Rohini Joya, contact #[phone]. Total critical care time was 45 minutes. Text document was generated using Fixmo voice recognition software. It may contain grammatical or spelling errors. Kindly contact undersigned for clarification of any documentation item in question. History of Present Illness Chief Complaint: Shortness of breath, COVID-19 Primary Care Provider: Milagro Steiner PA-C History obtained from patient and records. 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 Last confinement March 2015 for suicidal attempt secondary to drug overdose. Last week, patient noted cough symptoms later productive of yellow sputum, minimal shortness of breath, chest pressure symptoms with diffuse myalgias. Loose stools. Patient admitted at the hospital for COVID-19 pneumonia. Patient has not received COVID-19 vaccination. Patient consulted ER 4 days ago but subsequently discharged home. Patient noted worsening symptoms at home along with nausea, vomiting, diarrhea symptoms. No abdominal pain. Usual achy migraine headache symptoms. O2 sats upon arrival at the ER 70s on room air. Patient given Decadron at the ER. Medical History as above Surgical History : Appendectomy, section, gastric revision, cholecystectomy, left salpingo-oophorectomy, breast reduction, tonsillectomy/adenectomy, hysterectomy Family History : COPD, schizophrenia, esophageal cancer, DM, heart disease, stroke Personal/Social history : Non-smoker, occasional EtOH intake, disabled Allergies Allergy/AdvReac Type Severity Reaction Status Date / Time banana Allergy Severe ANAPHYLAXIS Verified 01/31/21 19:55 butorphanol Allergy Severe WANTED TO Verified 01/31/21 19:55 STOP BREATHING dog dander Allergy Severe anaphylacti Verified 01/31/21 19:55 c kiwi Allergy Severe Anaphylaxis Verified 01/31/21 19:55 pecan nut Allergy Severe ANAPHYLAXIS Verified 01/31/21 19:55 pistachio nut Allergy Severe ANAPHYLAXIS Verified 01/31/21 19:55 Sulfa (Sulfonamide Allergy Severe Hives Verified 01/31/21 19:55 Antibiotics) walnut Allergy Severe Anaphylaxis Verified 01/31/21 19:55 cat dander Allergy Intermediate Hives Verified 01/31/21 19:55 latex Allergy Unknown itchy Verified 01/31/21 19:55 Home Medications Medication Instructions Recorded Confirmed Type ferrous sulfate 325 mg (65 mg 325 mg PO BID tab 11/21/18 01/31/21 History iron) tablet diclofenac sodium 1 % topical gel 1 ea TOPICAL UD gm 03/30/19 01/31/21 History ropinirole 1 mg tablet 0.5 mg PO TIDM #90 tab 03/30/19 01/31/21 History CPAP Machine #1 ea 04/16/19 12/29/20 Rx aspirin 81 mg tablet,delayed 81 mg PO DAILY 10/22/19 01/31/21 History release epinephrine 0.3 mg/0.3 mL 0.3 mg IM ONCE PRN #1 dose pk 11/30/19 01/31/21 Rx injection, auto-injector hydroxyzine HCl 25 mg tablet 50 mg PO .qhs #60 tab 12/28/19 01/31/21 Rx ipratropium bromide 42 mcg (0.06 2 spray INTRANASAL DAILY #15 ml 01/11/20 01/31/21 Rx %) nasal spray azelastine 137 mcg (0.1 %) nasal See Rx Instructions .ROUTE 11/18/20 01/31/21 Rx spray aerosol .COMPLEX #30 ml beclomethasone dipropionate 80 1 inh INHALATION BID #10.6 g 12/29/20 01/31/21 Rx mcg/actuation HFA breath activated aerosol (Qvar RediHaler) mupirocin 2 % topical ointment 1 applic TOPICAL .COMPLEX #15 g 12/29/20 01/31/21 Rx omalizumab 150 mg subcutaneous 300 mg SUBCUT .COMPLEX #2 ea 01/17/21 01/31/21 Rx solution (Xolair) albuterol sulfate 90 mcg/actuation 2 puff INHALATION Q4H PRN 01/31/21 01/31/21 History aerosol inhaler baclofen 20 mg tablet 20 mg PO TID PRN 01/31/21 01/31/21 History benzonatate 100 mg capsule 200 mg PO QAM 01/31/21 01/31/21 History bupropion HCl 150 mg tablet,12 hr 150 mg PO HS 01/31/21 01/31/21 History sustained-release clonazepam 0.5 mg tablet 0.5 mg PO DAILY 01/31/21 01/31/21 History eszopiclone 2 mg tablet 2 mg PO HS 01/31/21 01/31/21 History fluoride (sodium) 1.1 % dental gel 1 applic DENTAL DAILY 01/31/21 01/31/21 History (PreviDent 5000 Dry Mouth) fluticasone propionate 50 2 spray INTRANASAL DAILY 01/31/21 01/31/21 History mcg/actuation nasal spray,suspension montelukast 10 mg tablet 10 mg PO QAM 01/31/21 01/31/21 History omeprazole 40 mg capsule,delayed 40 mg PO DAILYBB 01/31/21 01/31/21 History release pentosan polysulfate sodium 100 mg 100 mg PO TID 01/31/21 01/31/21 History capsule (Elmiron) semaglutide (weight loss) 0.25 0.25 mg SUBCUT WK 01/31/21 01/31/21 History mg/0.5 mL subcutaneous pen injector (Wegovy) vortioxetine 20 mg tablet 20 mg PO HS 01/31/21 01/31/21 History (Trintellix) Past Med/Surg History Medical History (Updated 02/01/21 @ 12:35 by Casey Starr MD) Anemia (07/01/12) "secondary to gastric bypass; receives transfusions weekly" Anxiety Cystitides, interstitial, chronic Depression FH: cholecystectomy Obstructive sleep apnea syndrome Restless leg syndrome Vertigo Surgical History H/O section H/O dilation and curettage H/O: hysterectomy S/P gastric surgery S/P tonsillectomy Family History Father Diabetes Hypertension Malignant neoplasm of esophagus EHSAN (obstructive sleep apnea) Mother Cardiac disorder Aunt Kidney stones Social History Smoking Status: Never smoker Second Hand Exposure: No; Do You Dip or Chew Tobacco: No; Tobacco Cessation Education Requested by Patient: No Hx Alcohol Use: No Hx Substance Use: No Preferred Language: Greek Communication Ability: Unable Pool Hall Inspector Required: No Beliefs That Will Affect Care: None marital status: Current Living Situation: Spouse current occupational status: unemployed and disabled Other Information That Helps Us Care for You: No Feels Safe at Home: Yes Safety Concerns: Feels Safe At This Time Assistive Devices: None Review of Systems Review of Systems: As per HPI, all 10 systems reviewed, all other ROS negative Physical Exam Physical Exam: GENERAL: uncomfortable, no respiratory distress, morbidly obese SKIN: Normal color, warm HEENT: [place] palpebral conjunctivae, no ptosis, dry buccal mucosa, nasal cannula in place NECK : Supple, short neck, no tenderness CHEST : Decreased breath sounds, occasional expiratory wheezes, no tenderness HEART : RRR, no obvious murmurs ABDOMEN: Some distention, nontender EXTREMITIES : Minimal LE swelling, no LE tenderness, no other conspicuous deformities noted NEUROLOGIC : Coherent, no facial asymmetry, no other gross focality Results & Data Results & Data ([facility]) Vital Signs (Past 12 Hours) Vital Signs Temp Pulse Pulse Resp BP BP Pulse Ox 01/31/21 19:00 61 20 132/78 97 01/31/21 17:32 98 01/31/21 17:30 71 20 138/83 98 01/31/21 17:12 78 L 01/31/21 17:02 36.8 C 90 18 117/79 83 L Laboratory Results Laboratory Results WBC 6.85 K/uL (4.8-10.8) 01/31/21 17:21 RBC 4.54 M/uL (4.2-5.4) 01/31/21 17:21 Hgb 13.5 g/dL (12.0-16.0) 01/31/21 17: Hct 41.7 % (37-47) 01/31/21 17:21 MCV 91.9 fL (80-100) 01/31/21 17: MCH 29.7 pg (25-34) 01/31/21 17: MCHC 32.4 g/dL (32-36) 01/31/21 17:21 RDW Std Deviation 46.0 fL (36.4-46.3) 01/31/21 17: RDW Coeff of Arielle 13.7 % (11.5-14.5) 01/31/21 17: Plt Count 263 K/uL (130-400) 01/31/21 17: MPV 11.1 fL (7.4-10.4) H 01/31/21 17: Neutrophils % (Manual) 79.2 % 01/31/21 17: Lymphocytes % (Manual) 12.1 % 01/31/21 17: Monocytes % (Manual) 5.2 % 01/31/21 17: Metamyelocytes % (Man) 2.6 % 01/31/21 17: Myelocytes % (Man) 0.9 % 01/31/21 17: Neutrophils # (Manual) 5.43 K/uL (1.4-6.5) 01/31/21 17: Total Absolute Neuts 5.43 K/uL (1.4-6.5) 01/31/21 17: Lymphocytes # (Manual) 0.83 K/uL (1.2-3.4) L 01/31/21 17:21 Total Abs Lymphocytes 0.83 K/uL (1.2-3.4) L 01/31/21 17:21 Monocytes # (Manual) 0.36 K/uL (0.11-0.59) 01/31/21 17:21 Metamyelocytes # (Man) 0.18 K/uL (0-0) H 01/31/21 17:21 Myelocytes # (Manual) 0.06 K/uL (0-0) H 01/31/21 17:21 RBC Morphology Unremarkable 01/31/21 17: PT 9.5 Seconds (9.0-12.0) 01/31/21 17: INR 0.9 (0.9-1.1) 01/31/21 17:21 APTT 35.7 Seconds (21.0-31.0) H 01/31/21 17:21 PTT Ratio 1.4 01/31/21 17:21 D-Dimer 500 ug/L FEU (0-500) 01/31/21 17:21 Sodium 139 mmol/L (136-145) 01/31/21 17:21 Potassium 3.0 mmol/L (3.5-5.1) L 01/31/21 17: Chloride 99 mmol/L (98-107) 01/31/21: Carbon Dioxide 29 mmol/L (21-32) 01/31/21 17: Anion Gap 10.0 (3-11) 01/31/21 17: BUN 7 mg/dl (7-18) 01/31/21 17: Creatinine 0.84 mg/dl (0.6-1.2) 01/31/21 17: Est Cr Clr Drug Dosing 92.8 ml/min 01/31/21 17:21 Est GFR ( Amer) 92.6 ml/min 01/31/21 17: Est GFR (Non-Af Amer) 79.9 ml/min 01/31/21 17:21 BUN/Creatinine Ratio 8.2 (10-20) L 01/31/21 17: Glucose 113 mg/dl (70-99) H 01/31/21 17: Calcium 8.6 mg/dl (8.5-10.1) 01/31/21 17: Magnesium 2.6 mg/dl (1.8-2.4) H 01/31/21 17: Total Bilirubin 0.4 mg/dl (0.2-1) 01/31/21 17:21 AST 104 U/L (15-37) H 01/31/21 17:21 ALT 92 U/L (12-78) H 01/31/21 17:21 Alkaline Phosphatase 84 U/L (45-117) 01/31/21 17:21 Troponin I < 0.015 ng/ml (0-0.045) 01/31/21 17:21 C-Reactive Protein 6.22 mg/dl (0-0.29) H 01/31/21 17:21 Total Protein 7.2 gm/dl (6.4-8.2) 01/31/21 17:21 Albumin 3.2 gm/dl (3.4-5.0) L 01/31/21 17:21 Globulin 4.0 gm/dl (2.5-4.0) 01/31/21 17:21 Albumin/Globulin Ratio 0.8 (0.9-2) L 01/31/21 17:21 TSH 5.220 uIu/ml (0.300-4.500) H 01/31/21 17:21 Free T4 1.10 ng/dl (0.8-1.6) 01/31/21 17:21 Urine Color Yellow 01/31/21 19:15 Urine Appearance Clear (Clear) 01/31/21 19:15 Urine pH 6.5 (4.5-7.5) 01/31/21 19:15 Ur Specific [place] 1.013 (1.000-1.030) 01/31/21 19:15 Urine Protein 1+ (Negative) H 01/31/21 19:15 Urine Glucose (UA) Negative (Negative) 01/31/21 19:15 Urine Ketones Negative (Negative) 01/31/21 19:15 Urine Blood 1+ (Negative) H 01/31/21 19:15 Urine Nitrite Negative (Negative) 01/31/21 19:15 Urine Bilirubin Negative (Negative) 01/31/21 19:15 Urine Urobilinogen Negative (Negative) 01/31/21 19:15 Ur Leukocyte Esterase Negative (Negative) 01/31/21 19:15 Urine WBC (Auto) 1-5 /hpf (0-5) 01/31/21 19:15 Urine RBC (Auto) 0-4 /hpf (0-4) 01/31/21 19:15 U Hyaline Cast (Auto) 1-5 /lpf (0-5) 01/31/21 19:15 U Epithel Cells (Auto) 10-20 /lpf (0-5) H 01/31/21 19:15 Urine Bacteria (Auto) Negative (Negative) 01/31/21 19:15 SARS-CoV-2 (PCR) POSITIVE (Negative) A* 11/23/21 17:21 Impressions Chest X-Ray 01/31/21 17:11 XR chest 1V portable HISTORY: 50 years-old Female Dyspnea, COVID acute cough. COVID Positive. COMPARISON: Chest radiograph 01/27/2021 TECHNIQUE: Portable AP view of the chest FINDINGS: Cardiac mediastinal and hilar silhouettes are unchanged. Interstitial coarsening with ill-defined bilateral airspace opacities have progressively worsened. No pneumothorax or pleural effusion. No acute fracture. IMPRESSION: Mild progressive worsening of the interstitial coarsening with ill- defined airspace opacities suggestive of viral pneumonia. ACT 112: Negative or not required by law. The above report was generated using voice recognition software. It may contain grammatical, syntax or spelling errors. Electronically signed by: Teodoro Sinha M.D. 01/31/2021 5:45 PM Diagnostic Findings EKG as per my read: Rate 75, NSR, normal axis, T wave flattening inferior leads
[2021-01-31] MEDS ORDERED: ALBUTEROL HFA 8 GM INHALER INH PRN (21:08)
[2021-01-31] MEDS ORDERED: DOXYCYCLINE HYCLATE 100 MG in DEXTROSE 5% 100 ML IV STA (21:24)
[2021-01-31] MEDS ORDERED: REMDESIVIR 200 MG in SODIUM CHLORIDE 0.9% 210 ML IV STA (21:25)
[2021-01-31] MEDS: POTASSIUM CHLORIDE 40 MEQ in SODIUM CHLORIDE 0.9% 1000ML 1,000 ML IV SCH (23:02)
[2021-01-31] MEDS ORDERED: clonazePAM 0.5 MG TAB PO ONE (23:58)
[2021-02-01] MEDS ORDERED: POTASSIUM CHLORIDE 10 MEQ TABCR PO ONE
[2021-02-01] MEDS ORDERED: PROMETHAZINE HCL 12.5 MG in SODIUM CHLORIDE 0.9% 50 ML IV PRN (00:54)
[2021-02-01] MEDS ORDERED: SODIUM CHLORIDE 0.9% 10ML FLUSH IV SCH (01:15)
[2021-02-01 05:00] LABS: Hematocrit (blood only) 41.3 % (37-47); Hemoglobin 13.3 g/dL (12.0-16.0); Mean Corpuscular Hemoglobin 29.8 pg (25-34); Mean Corpuscular Hgb Conc 32.2 g/dL (32-36); Mean Corpuscular Volume 92.6 fL (80-100); Mean Platelet Volume 11.3 fL (7.4-10.4); Platelet Count 268 K/uL (130-400); RDW Coefficient of Variation 13.6 % (11.5-14.5); RDW Standard Deviation 46.6 fL (36.4-46.3); Red Blood Count 4.46 M/uL (4.2-5.4); White Blood Count 6.39 K/uL (4.8-10.8)
[2021-02-01 05:27] LABS: Albumin Globulin Ratio 0.7 (0.9-2); Albumin Level 2.8 gm/dl (3.4-5.0); BUN Creatinine Ratio 10.3 (10-20); Bilirubin,Total 0.3 mg/dl (0.2-1); C Reactive Protein 5.71 mg/dl (0-0.29); Calcium 8.3 mg/dl (8.5-10.1); Creatinine Clr Calc Pharmacy 114.6 ml/min; Est GFR (African American) 116.6 ml/min; Est GFR (Non-African American) 100.6 ml/min; Globulin 3.9 gm/dl (2.5-4.0); Potassium 4.2 mmol/L (3.5-5.1); Total Protein 6.7 gm/dl (6.4-8.2)
[2021-02-01 05:40] LABS: ALC (manual) 0.45 K/uL (1.2-3.4); ANC (manual) 4.98 K/uL (1.4-6.5); Lymphocytes # (manual) 0.45 K/uL (1.2-3.4); Lymphocytes % (manual) 7.1 %; Metamyelocytes # (manual) 0.12 K/uL (0-0); Metamyelocytes % (manual) 1.8 %; Monocytes # (manual) 0.56 K/uL (0.11-0.59); Monocytes % (manual) 8.8 %; Myelocytes # (manual) 0.28 K/uL (0-0); Myelocytes % (manual) 4.4 %; Neutrophils # (manual) 4.98 K/uL (1.4-6.5); Neutrophils % (manual) 77.9 %; RBC Morphology Unremarkable
[2021-02-01] MEDS ORDERED: EPINEPHrine INJ 1 MG/ML AMP IM PRN (06:20)
[2021-02-01] MEDS: PANTOprazole 40 MG TAB PO SCH (07:27)
[2021-02-01] MEDS ORDERED: FLUORIDE 1.1% DT SCH (09:00)
[2021-02-01] MEDS: dexAMETHasone 6 MG in SYRINGE 0 ML IV SCH (09:07)
[2021-02-01] MEDS ORDERED: PROMETHAZINE 12.5 MG/50.5 ML NSS IV ONE (09:20)
[2021-02-01] MEDS ORDERED: FUROSEMIDE 40 MG/4 ML VIAL IV ONE (09:29)
[2021-02-01] MEDS: rOPINIRole HCL 0.25 MG TABLET PO SCH ×3 (09:30→17:35)
[2021-02-01] MEDS: ENOXAPARIN INJ 40 MG/0.4 ML SYR SQ SCH (09:32)
[2021-02-01] MEDS: IPRATROPIUM BROMIDE NASAL SPRAY 0.06% 15ML SCH (09:32)
[2021-02-01] MEDS: PENTOSAN POLYSULFATE SODIUM 100 MG CAP PO SCH ×3 (09:32→20:32)
[2021-02-01] MEDS: MONTELUKAST SODIUM 10 MG TABLET PO SCH (09:32)
[2021-02-01] MEDS: FLUTICASONE FUROATE 100MCG 14 PUFFS/INHALER INH SCH (09:32)
[2021-02-01] MEDS: DOXYCYCLINE HYCLATE 100 MG CAP PO SCH ×2 (09:32→20:32)
[2021-02-01] MEDS: AZELASTINE HCL 0.1% NASAL 200 SPRAYS/27,400 MCG BTL SCH (09:32)
[2021-02-01] MEDS: ASPIRIN 81 MG ECTAB PO SCH (09:32)
[2021-02-01] MEDS: FLUTICASONE PROPIONATE NA SPR 16 GM BTL SCH (09:32)
[2021-02-01] MEDS: POTASSIUM CHLORIDE 40 MEQ in SODIUM CHLORIDE 0.9% 1000ML 1,000 ML IV SCH (10:42)
[2021-02-01] MEDS: FERROUS SULFATE 325 MG TAB PO SCH ×2 (12:07→22:48)
[2021-02-01] MEDS: ACETAMINOPHEN 325 MG TAB PO PRN (17:46)
--- NOTE | 2021-02-01 17:49 | Hospitalist Progress Note ---
Date of Service February 01, 2021 Assessment & Plan (1) Acute hypoxemic respiratory failure: Plan: Not been vaccinated Secondary to severe COVID-19 pneumonia Decadron and Remdesivir initial dose for severe COVID-19 pneumonia. (Patient was counseled regarding potential adverse effects from Remdesivir therapy and provided with patient education sheet.) Superimposed bacterial infection, no sepsis for now Doxycycline for superimposed bacterial infection hx central sleep apnea as per records likely complicating the situation We will continue supplemental oxygen and BiPAP Prone position as tolerated Cough suppressant and use of spirometer and flutter valve May need pulmonology if the condition does not get any better Other significant medical conditions are as follows: Migraine/history pseudotumor cerebri, patient currently with minimal headache Anxiety/mood disorder, at baseline History of gastric bypass without any acute issues Mast cell disorder/chronic urticaria as per records, patient follows with [facility] allergologist Interstitial cystitis, stable on regimen Prediabetes, hemoglobin A1c 5.16 November 2020 Hypokalemia secondary to diarrhea ro stool C. difficile Stool for C. difficile DVT prophylaxis per Lovenox subcu Full code Patient requests for her mother to be given periodic updates. Ms. Rohini Joya, contact #[phone]. Admission and Anticipated Discharge Date Admission Date: January 31, 2021 Subjective 02/01/2021 The patient was seen and examined in emergency room in the holding area She has been requiring high flow oxygen and also required BiPAP to maintain saturation She has been having symptoms for more than 10 days prior to admission Denies any pain and/or extreme weakness or tiredness Review of Systems Review of Systems: All systems reviewed and are unremarkable except as noted below Respiratory: Moderate shortness of breath at rest on BiPAP Physical Exam Physical Exam: Lying in bed with moderate shortness of breath on BiPAP Constitutional: well developed, well nourished, + ill appearing and + obese Eyes: PERRL, conjunctivae normal, anicteric sclerae ENMT: external ear and nose normal, oropharynx normal Neck: trachea midline, no thyromegaly Respiratory: + respiratory distress (Moderate) and + cough Auscultation: + diminished lung sounds and + crackles (At the bases) Cardiovascular: Rate/Rhythm: regular rate and regular rhythm; not tachycardic Heart Sounds: normal S1 and normal S2; no murmur Extremities: + edema (Trace edema bilaterally) Gastrointestinal (Abdomen): Inspection/Auscultation: normal bowel sounds; abdomen not distended Percussion/Palpation: abdomen soft; abdomen nontender Musculoskeletal: No acute arthritis in any joint Neurologic: Alert, awake and oriented x3 Results & Data Results & Data ([facility]) Vital Signs (Past 12 Hours) Vital Signs Temp Pulse Pulse Resp BP Pulse Ox 02/01/21 12:00 73 24 125/76 90 02/01/21 11:22 53 L 22 96 02/01/21 09:34 64 22 94 02/01/21 07:29 37.0 C 66 24 108/57 L 90 Laboratory Results Short CBC 02/01/21 Range/Units 04:42 WBC 6.39 (4.8-10.8) K/uL Hgb 13.3 (12.0-16.0) g/dL Hct 41.3 (37-47) % Plt Count 268 (130-400) K/uL BMP 01/31/21 02/01/21 17:21 04:42 Sodium 139 138 Potassium 3.0 L 4.2 D Chloride 99 105 Carbon Dioxide 29 31 BUN 7 7 Creatinine 0.84 0.68 Glucose 113 H 180 H Calcium 8.6 8.3 L Cardiac Enzymes 01/31/21 Range/Units 17:21 Troponin I < 0.015 (0-0.045) ng/ml Liver Function 01/31/21 02/01/21 Range/Units 17:21 04:42 Total Bilirubin 0.4 0.3 (0.2-1) mg/dl AST 104 H 81 H (15-37) U/L ALT 92 H 82 H (12-78) U/L Alkaline Phosphatase 84 80 (45-117) U/L Albumin 3.2 L 2.8 L (3.4-5.0) gm/dl Urine 01/31/21 Range/Units 19:15 Urine Color Yellow Urine Appearance Clear (Clear) Urine pH 6.5 (4.5-7.5) Ur Specific [place] 1.013 (1.000-1.030) Urine Protein 1+ H (Negative) Urine Glucose (UA) Negative (Negative) Medications Administered Current Inpatient Medications Acetaminophen (Acetaminophen 325 Mg Tab) 325 mg PO Q6H PRN PRN Reason: Mild Pain Stop: 03/02/21 21:12 Albuterol (Albuterol Hfa 8 Gm Inhaler) 2 puffs INH Q2H PRN PRN Reason: sob/wheeze Stop: 03/02/21 21:07 Last Admin: 02/01/21 09:06 Dose: 2 puffs Documented by: Aspirin (Aspirin 81 Mg Ectab) 81 mg PO DAILY [facility] Stop: 03/03/21 08:59 Last Admin: 02/01/21 09:32 Dose: Not Given Documented by: Azelastine HCl (Azelastine Hcl 0.1% Nasal 200 Sprays/27,400 Mcg Btl) 2 sprays NA DAILY [facility] Stop: 03/03/21 08:59 Last Admin: 02/01/21 09:32 Dose: Not Given Documented by: Baclofen (Baclofen 20 Mg Tab) 20 mg PO TID PRN PRN Reason: MUSCLE SPASMS Stop: 03/03/21 00:53 Bupropion HCl (Bupropion Sr 150 Mg Tabcr) 150 mg PO HS [facility] Stop: 03/03/21 20:59 Clonazepam (Clonazepam 0.25 Mg Tab) 0.5 mg PO HS [facility] Stop: 03/03/21 20:59 Doxycycline Hyclate (Doxycycline Hyclate 100 Mg Cap) 100 mg PO BID [facility] Stop: 02/08/21 08:59 Last Admin: 02/01/21 09:32 Dose: Not Given Documented by: Enoxaparin Sodium (Enoxaparin Inj 40 Mg/0.4 Ml Syr) 40 mg SQ QAM [facility] Stop: 03/03/21 08:59 Last Admin: 02/01/21 09:32 Dose: Not Given Documented by: Epinephrine HCl (Epinephrine Inj 1 Mg/Ml Amp) 0.3 mg IM ONCE PRN PRN Reason: anaphylaxis Stop: 03/03/21 06:19 Eszopiclone (Eszopiclone 1 Mg Tab) 2 mg PO HS [facility] Stop: 03/03/21 20:59 Ferrous Sulfate (Ferrous Sulfate 325 Mg Tab) 325 mg PO BID@1100,2300 [facility] Stop: 03/03/21 10:59 Last Admin: 02/01/21 12:07 Dose: 325 mg Documented by: Fluticasone Furoate (Fluticasone Furoate 100mcg 14 Puffs/Inhaler) 1 puffs INH D AILY [facility] Stop: 03/03/21 08:59 Last Admin: 02/01/21 09:32 Dose: Not Given Documented by: Fluticasone Propionate (Fluticasone Propionate Na Spr 16 Gm Btl) 2 sprays NA DAILY MARTHA Stop: 03/03/21 08:59 Last Admin: 02/01/21 09:32 Dose: Not Given Documented by: Potassium Chloride 40 meq/ (Sodium Chloride) 1,020 mls @ 75 mls/hr IV .[id number] MARTHA Stop: 03/02/21 21:18 Last Admin: 02/01/21 10:42 Dose: 75 mls/hr Documented by: Promethazine HCl 12.5 mg/ (Sodium Chloride) 50.5 mls @ 202 mls/hr IV Q6H PRN PRN Reason: Nausea And Vomiting Stop: 03/03/21 00:53 Last Infusion: 02/01/21 09:40 Dose: Infused Documented by: Dexamethasone 6 mg/ Syringe 1.5 mls @ 1 mls/min IV DAILY MARTHA Stop: 03/03/21 08:59 Last Admin: 02/01/21 09:07 Dose: 1 mls/min Documented by: Ipratropium [place] (Ipratropium [place] Nasal [place] 0.06% 15ml) 2 sprays NA DAILY MARTHA Stop: 03/03/21 08:59 Last Admin: 02/01/21 09:32 Dose: Not Given Documented by: Miscellaneous (Vortioxetine [Trintellix]: Order Awaiting Action) 1 ea N/A QS MARTHA Stop: 03/03/21 07:59 Last Admin: 02/01/21 16:04 Dose: Not Given Documented by: Montelukast Sodium (Montelukast Sodium 10 Mg Tablet) 10 mg PO QAM MARTHA Stop: 03/03/21 08:59 Last Admin: 02/01/21 09:32 Dose: Not Given Documented by: Pantoprazole Sodium (Pantoprazole 40 Mg Tab) 40 mg PO DAILYBB MARTHA Stop: 03/03/21 06:29 Last Admin: 02/01/21 07:27 Dose: 40 mg Documented by: Pentosan Polysulfate Sodium (Pentosan Polysulfate Sodium 100 Mg Cap) 100 mg PO TID MARTHA Stop: 03/03/21 08:59 Last Admin: 02/01/21 14:55 Dose: 100 mg Documented by: Ropinirole HCl (Ropinirole Hcl 0.25 Mg Tablet) 0.5 mg PO TIDM MARTHA Stop: 03/03/21 07:59 Last Admin: 02/01/21 17:35 Dose: 0.5 mg Documented by: Tramadol HCl (Tramadol Hcl 50 Mg Tablet) 25 - 50 mg PO Q4H PRN PRN Reason: Pain Stop: 03/03/21 00:53
[2021-02-01] MEDS: traMADol HCL 50 MG TABLET PO PRN (18:47)
[2021-02-01] MEDS ORDERED: KETOROLAC 30 MG/ML VIAL IV ONE (20:15)
[2021-02-01] MEDS ORDERED: KETOROLAC 30 MG/ML VIAL ONE (20:23)
[2021-02-01] MEDS: buPROPion SR 150 MG TABCR PO SCH (20:32)
[2021-02-01] MEDS: clonazePAM 0.25 MG TAB PO SCH (22:48)
[2021-02-01] MEDS: ESZOPICLONE 1 MG TAB PO SCH (22:49)
[2021-02-02] MEDS: POTASSIUM CHLORIDE 40 MEQ in SODIUM CHLORIDE 0.9% 1000ML 1,000 ML IV SCH (01:47)
[2021-02-02] MEDS: ALUMINUM/MAGNESIUM/SIMETH (MAALOX MAX) 30 ML UDC PO PRN (02:12)
[2021-02-02] MEDS: PANTOprazole 40 MG TAB PO SCH (04:50)
--- NOTE | 2021-02-02 06:11 | Electrocardiogram Report ---
Test Reason : Blood Pressure : / mmHG Vent. Rate : 073 BPM Atrial Rate : 073 BPM P-R Int : 140 ms QRS Dur : 088 ms QT Int : 420 ms P-R-T Axes : 050 007 -01 degrees QTc Int : 463 ms Normal sinus rhythm When compared with ECG of 27-JAN-2021 09:13, No significant change was found Confirmed by Stan Acevedo ([id number]) on 02/02/2021 6:10:58 AM Referred By: REFERRED SELF Confirmed By:Stan Acevedo
[2021-02-02 07:23] LABS: Hematocrit (blood only) 40.6 % (37-47); Hemoglobin 12.7 g/dL (12.0-16.0); Mean Corpuscular Hemoglobin 29.1 pg (25-34); Mean Corpuscular Hgb Conc 31.3 g/dL (32-36); Mean Corpuscular Volume 93.1 fL (80-100); Mean Platelet Volume 11.2 fL (7.4-10.4); Platelet Count 306 K/uL (130-400); RDW Standard Deviation 47.5 fL (36.4-46.3); Red Blood Count 4.36 M/uL (4.2-5.4); White Blood Count 8.78 K/uL (4.8-10.8)
[2021-02-02] MEDS: rOPINIRole HCL 0.25 MG TABLET PO SCH ×3 (07:35→17:13)
[2021-02-02 07:49] LABS: Basophils # (auto) 0.06 K/uL (0-0.2); Basophils % (auto) 0.7 %; Immature Granulocytes # (auto) 0.65 K/uL (0.00-0.02); Immature Granulocytes % (auto) 7.4 %; Lymphocytes # (auto) 1.55 K/uL (1.2-3.4); Lymphocytes % (auto) 17.7 %; Monocytes % (auto) 15.9 %; Neutrophils # (auto) 5.12 K/uL (1.4-6.5); Neutrophils % (auto) 58.3 %
[2021-02-02 07:53] LABS: Albumin Level 2.6 gm/dl (3.4-5.0); BUN Creatinine Ratio 24.9 (10-20); C Reactive Protein 2.53 mg/dl (0-0.29); Calcium 8.3 mg/dl (8.5-10.1); Creatinine Clr Calc Pharmacy 146.5 ml/min; Est GFR (African American) 126.5 ml/min; Est GFR (Non-African American) 109.2 ml/min; Potassium 4.5 mmol/L (3.5-5.1)
[2021-02-02 08:00] LABS: Albumin Globulin Ratio 0.7 (0.9-2); Bilirubin,Total 0.3 mg/dl (0.2-1); Globulin 3.7 gm/dl (2.5-4.0); Total Protein 6.4 gm/dl (6.4-8.2)
[2021-02-02] MEDS: ASPIRIN 81 MG ECTAB PO SCH (09:09)
[2021-02-02] MEDS: dexAMETHasone 6 MG in SYRINGE 0 ML IV SCH (09:10)
[2021-02-02] MEDS: AZELASTINE HCL 0.1% NASAL 200 SPRAYS/27,400 MCG BTL SCH (09:10)
[2021-02-02] MEDS: DOXYCYCLINE HYCLATE 100 MG CAP PO SCH ×2 (09:10→20:41)
[2021-02-02] MEDS: FLUTICASONE PROPIONATE NA SPR 16 GM BTL SCH (09:11)
[2021-02-02] MEDS: ENOXAPARIN INJ 40 MG/0.4 ML SYR SQ SCH (09:11)
[2021-02-02] MEDS: MONTELUKAST SODIUM 10 MG TABLET PO SCH (09:12)
[2021-02-02] MEDS: PENTOSAN POLYSULFATE SODIUM 100 MG CAP PO SCH ×3 (09:13→20:45)
[2021-02-02] MEDS: FLUTICASONE FUROATE 100MCG 14 PUFFS/INHALER INH SCH (09:13)
[2021-02-02] MEDS: IPRATROPIUM BROMIDE NASAL SPRAY 0.06% 15ML SCH (09:21)
[2021-02-02] MEDS: FERROUS SULFATE 325 MG TAB PO SCH ×2 (11:58→22:10)
[2021-02-02] MEDS: FUROSEMIDE 40 MG/4 ML VIAL IV SCH (14:05)
--- NOTE | 2021-02-02 15:12 | Hospitalist Progress Note ---
Date of Service February 02, 2021 Assessment & Plan (1) Acute hypoxemic respiratory failure: Plan: Not been vaccinated Secondary to severe COVID-19 pneumonia Decadron and Remdesivir initial dose for severe COVID-19 pneumonia. (Patient was counseled regarding potential adverse effects from Remdesivir therapy and provided with patient education sheet.) Superimposed bacterial infection, no sepsis for now Doxycycline for superimposed bacterial infection hx central sleep apnea as per records likely complicating the situation We will continue supplemental oxygen and BiPAP Prone position as tolerated Cough suppressant and use of spirometer and flutter valve May need pulmonology if the condition does not get any better Clinically better but is still requiring very high flow oxygen to maintain saturation Other significant medical conditions are as follows: Migraine/history pseudotumor cerebri, patient currently with minimal headache Denies any more headache Anxiety/mood disorder, at baseline No acute anxiety and or delirium History of gastric bypass without any acute issues 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 difficile Stool for C. difficile DVT prophylaxis per Lovenox subcu Full code Patient requests for her mother to be given periodic updates. Ms. Rohini Joya, contact #[phone]. Admission and Anticipated Discharge Date Admission Date: January 31, 2021 Subjective 02/01/2021 The patient was seen and examined in emergency room in the [facility] area She has been requiring high flow oxygen and also required BiPAP to maintain saturation She has been having symptoms for more than 10 days prior to admission Denies any pain and/or extreme weakness or tiredness 02/02/2021 The patient was seen and examined in telemetry unit and in the Covid room She has been feeling a little better since admission Has cough and is still requiring very high flow oxygen to maintain saturation She cannot be prone but has been trying to lie on her sides Review of Systems Review of Systems: All systems reviewed and are unremarkable except as noted below Respiratory: Moderate shortness of breath at rest on BiPAP Physical Exam Physical Exam: Lying in bed with moderate shortness of breath on BiPAP Constitutional: well developed, well nourished, + ill appearing and + obese Eyes: PERRL, conjunctivae normal, anicteric sclerae ENMT: external ear and nose normal, oropharynx normal Neck: trachea midline, no thyromegaly Respiratory: + respiratory distress (Moderate) and + cough Auscultation: + diminished lung sounds and + crackles (At the bases) Cardiovascular: Rate/Rhythm: regular rate and regular rhythm; not tachycardic Heart Sounds: normal S1 and normal S2; no murmur Extremities: + edema (Trace edema bilaterally) Gastrointestinal (Abdomen): Inspection/Auscultation: normal bowel sounds; abdomen not distended Percussion/Palpation: abdomen soft; abdomen nontender Musculoskeletal: No acute arthritis in any joint Neurologic: Alert, awake and oriented x3. No focal sensory or no motor deficit appreciated Results & Data Results & Data ([facility]) Vital Signs (Past 12 Hours) Vital Signs Temp Pulse Pulse Resp BP Pulse Ox 02/02/21 15:00 36.9 C 62 18 135/76 92 02/02/21 11:42 71 20 93 02/02/21 11:12 36.6 C 61 20 141/81 H 91 02/02/21 07:31 36.7 C 62 18 136/72 94 02/02/21 07:00 65 20 96 02/02/21 04:58 37.1 C 63 18 125/74 95 02/02/21 03:24 77 Laboratory Results Short CBC 02/02/21 Range/Units 06:48 WBC 8.78 (4.8-10.8) K/uL Hgb 12.7 (12.0-16.0) g/dL Hct 40.6 (37-47) % Plt Count 306 (130-400) K/uL BMP 02/02/21 06:48 Sodium 140 Potassium 4.5 Chloride 104 Carbon Dioxide 28 BUN 13 D Creatinine 0.53 L Glucose 93 Calcium 8.3 L Liver Function 02/02/21 Range/Units 06:48 Total Bilirubin 0.3 (0.2-1) mg/dl AST 43 H (15-37) U/L ALT 60 (12-78) U/L Alkaline Phosphatase 65 (45-117) U/L Albumin 2.6 L (3.4-5.0) gm/dl Medications Administered Current Inpatient Medications Acetaminophen (Acetaminophen 325 Mg Tab) 325 mg PO Q6H PRN PRN Reason: Mild Pain Stop: 03/02/21 21:12 Last Admin: 02/01/21 17:46 Dose: 325 mg Documented by: Al Hydrox/Mg Hydrox/Simethicone (Aluminum/Magnesium/Simeth (Maalox Max) 30 Ml Udc) 30 ml PO Q6H PRN PRN Reason: Heartburn Stop: 03/04/21 01:58 Last Admin: 02/02/21 02:12 Dose: 30 ml Documented by: Albuterol (Albuterol Hfa 8 Gm Inhaler) 2 puffs INH Q2H PRN PRN Reason: sob/wheeze Stop: 03/02/21 21:07 Last Admin: 02/01/21 09:06 Dose: 2 puffs Documented by: Aspirin (Aspirin 81 Mg Ectab) 81 mg PO DAILY MARTHA Stop: 03/03/21 08:59 Last Admin: 02/02/21 09:09 Dose: 81 mg Documented by: Azelastine HCl (Azelastine Hcl 0.1% Nasal 200 Sprays/27,400 Mcg Btl) 2 sprays NA DAILY MARTHA Stop: 03/03/21 08:59 Last Admin: 02/02/21 09:10 Dose: 2 sprays Documented by: Baclofen (Baclofen 20 Mg Tab) 20 mg PO TID PRN PRN Reason: MUSCLE SPASMS Stop: 03/03/21 00:53 Bupropion HCl (Bupropion Sr 150 Mg Tabcr) 150 mg PO HS MARTHA Stop: 03/03/21 20:59 Last Admin: 02/01/21 20:32 Dose: 150 mg Documented by: Clonazepam (Clonazepam 0.25 Mg Tab) 0.5 mg PO HS MARTHA Stop: 03/03/21 20:59 Last Admin: 02/01/21 22:48 Dose: 0.5 mg Documented by: Doxycycline Hyclate (Doxycycline Hyclate 100 Mg Cap) 100 mg PO BID MARTHA Stop: 02/08/21 08:59 Last Admin: 02/02/21 09:10 Dose: 100 mg Documented by: Enoxaparin Sodium (Enoxaparin Inj 40 Mg/0.4 Ml Syr) 40 mg SQ QAM MRATHA Stop: 03/03/21 08:59 Last Admin: 02/02/21 09:11 Dose: 40 mg Documented by: Epinephrine HCl (Epinephrine Inj 1 Mg/Ml Amp) 0.3 mg IM ONCE PRN PRN Reason: anaphylaxis Stop: 03/03/21 06:19 Eszopiclone (Eszopiclone 1 Mg Tab) 2 mg PO HS MARTHA Stop: 03/03/21 20:59 Last Admin: 02/01/21 22:49 Dose: 2 mg Documented by: Ferrous Sulfate (Ferrous Sulfate 325 Mg Tab) 325 mg PO BID@1100,2300 MARTHA Stop: 03/03/21 10:59 Last Admin: 02/02/21 11:58 Dose: 325 mg Documented by: Fluticasone Furoate (Fluticasone Furoate 100mcg 14 Puffs/Inhaler) 1 puffs INH DAILY MARTHA Stop: 03/03/21 08:59 Last Admin: 02/02/21 09:13 Dose: 1 puffs Documented by: Fluticasone Propionate (Fluticasone Propionate Na Spr 16 Gm Btl) 2 sprays NA DAILY MARTHA Stop: 03/03/21 08:59 Last Admin: 02/02/21 09:11 Dose: 2 sprays Documented by: Furosemide (Furosemide 40 Mg/4 Ml Vial) 40 mg IV DAILY MARTHA Stop: 03/04/21 12:59 Last Admin: 02/02/21 14:05 Dose: 40 mg Documented by: Guaifenesin (Guaifenesin 600 Mg Tabcr) 1,200 mg PO Q12 MARTHA Stop: 03/04/21 20:59 Hydrocodone Bit/Homatropine Methylb (Hydrocodone/Homatropine Syrup 5mg/1.5mg 5ml Udp) 5 ml PO Q6H PRN PRN Reason: Cough Stop: 02/16/21 15:11 Promethazine HCl 12.5 mg/ (Sodium Chloride) 50.5 mls @ 202 mls/hr IV Q6H PRN PRN Reason: Nausea And Vomiting Stop: 03/03/21 00:53 Last Infusion: 02/01/21 09:40 Dose: Infused Documented by: Dexamethasone 6 mg/ Syringe 1.5 mls @ 1 mls/min IV DAILY MARTHA Stop: 03/03/21 08:59 Last Admin: 02/02/21 09:10 Dose: 1 mls/min Documented by: Ipratropium [place] (Ipratropium [place] Nasal [place] 0.06% 15ml) 2 sprays NA DAILY MARTHA Stop: 03/03/21 08:59 Last Admin: 02/02/21 09:21 Dose: Not Given Documented by: Miscellaneous (Vortioxetine [Trintellix]: Order Awaiting Action) 1 ea N/A QS [facility] Stop: 03/03/21 07:59 Last Admin: 02/02/21 09:07 Dose: Not Given Documented by: Montelukast Sodium (Montelukast Sodium 10 Mg Tablet) 10 mg PO QAM [facility] Stop: 03/03/21 08:59 Last Admin: 02/02/21 09:12 Dose: 10 mg Documented by: Pantoprazole Sodium (Pantoprazole 40 Mg Tab) 40 mg PO DAILYBB [facility] Stop: 03/03/21 06:29 Last Admin: 02/02/21 04:50 Dose: 40 mg Documented by: Pentosan Polysulfate Sodium (Pentosan Polysulfate Sodium 100 Mg Cap) 100 mg PO TID [facility] Stop: 03/03/21 08:59 Last Admin: 02/02/21 14:06 Dose: 100 mg Documented by: Ropinirole HCl (Ropinirole Hcl 0.25 Mg Tablet) 0.5 mg PO TIDM [facility] Stop: 03/03/21 07:59 Last Admin: 02/02/21 11:58 Dose: 0.5 mg Documented by: Tramadol HCl (Tramadol Hcl 50 Mg Tablet) 25 - 50 mg PO Q4H PRN PRN Reason: Pain Stop: 03/03/21 00:53 Last Admin: 02/01/21 18:47 Dose: 50 mg Documented by:
[2021-02-02] MEDS: ACETAMINOPHEN 325 MG TAB PO PRN (17:21)
[2021-02-02] MEDS: buPROPion SR 150 MG TABCR PO SCH (20:41)
[2021-02-02] MEDS: BACLOFEN 20 MG TAB PO PRN (20:42)
[2021-02-02] MEDS: guaiFENesin 600 MG TABCR PO SCH (20:43)
[2021-02-02] MEDS: VORTIOXETINE HYDROBROMIDE [PATIENT OWN MED] PO SCH (20:46)
[2021-02-02] MEDS ORDERED: VORTIOXETINE HYDROBROMIDE [PATIENT OWN MED] PO SCH (21:00)
[2021-02-02] MEDS: clonazePAM 0.25 MG TAB PO SCH (21:02)
[2021-02-02] MEDS: ESZOPICLONE 1 MG TAB PO SCH (21:03)
[2021-02-02] MEDS ORDERED: LORazepam 0.25 MG/0.5 ML VIAL IV STA (22:46)
[2021-02-03 06:05] LABS: Hemoglobin 13.6 g/dL (12.0-16.0); Mean Corpuscular Hemoglobin 29.6 pg (25-34); Mean Corpuscular Hgb Conc 31.6 g/dL (32-36); Mean Corpuscular Volume 93.5 fL (80-100); Mean Platelet Volume 11.3 fL (7.4-10.4); Nucleated RBC # (auto) 0.02 K/uL (0-0); Nucleated RBC % (auto) 0.3 %; Platelet Count 353 K/uL (130-400); RDW Coefficient of Variation 13.9 % (11.5-14.5); RDW Standard Deviation 47.5 fL (36.4-46.3); White Blood Count 9.01 K/uL (4.8-10.8)
[2021-02-03] MEDS: PANTOprazole 40 MG TAB PO SCH (06:10)
[2021-02-03 06:48] LABS: BUN Creatinine Ratio 24.3 (10-20); Calcium 9.2 mg/dl (8.5-10.1); Creatinine Clr Calc Pharmacy 116.8 ml/min; Est GFR (African American) 117.7 ml/min; Est GFR (Non-African American) 101.6 ml/min; Magnesium 2.9 mg/dl (1.8-2.4); Potassium 3.9 mmol/L (3.5-5.1)
[2021-02-03 06:49] LABS: Basophils # (auto) 0.06 K/uL (0-0.2); Basophils % (auto) 0.7 %; Immature Granulocytes # (auto) 0.46 K/uL (0.00-0.02); Immature Granulocytes % (auto) 5.1 %; Lymphocytes % (auto) 17.8 %; Monocytes # (auto) 1.77 K/uL (0.11-0.59); Monocytes % (auto) 19.6 %; Neutrophils # (auto) 5.12 K/uL (1.4-6.5); Neutrophils % (auto) 56.8 %
[2021-02-03 06:51] LABS: Albumin Globulin Ratio 0.7 (0.9-2); Bilirubin,Total 0.5 mg/dl (0.2-1); Globulin 4.2 gm/dl (2.5-4.0); Phosphorus 3.3 mg/dl (2.5-4.9); Total Protein 7.2 gm/dl (6.4-8.2)
[2021-02-03] MEDS: ASPIRIN 81 MG ECTAB PO SCH (09:10)
[2021-02-03] MEDS: AZELASTINE HCL 0.1% NASAL 200 SPRAYS/27,400 MCG BTL SCH (09:10)
[2021-02-03] MEDS: rOPINIRole HCL 0.25 MG TABLET PO SCH ×3 (09:10→16:46)
[2021-02-03] MEDS: DOXYCYCLINE HYCLATE 100 MG CAP PO SCH ×2 (09:11→21:07)
[2021-02-03] MEDS: dexAMETHasone 6 MG in SYRINGE 0 ML IV SCH (09:11)
[2021-02-03] MEDS: ENOXAPARIN INJ 40 MG/0.4 ML SYR SQ SCH (09:11)
[2021-02-03] MEDS: FUROSEMIDE 40 MG/4 ML VIAL IV SCH (09:12)
[2021-02-03] MEDS: FLUTICASONE PROPIONATE NA SPR 16 GM BTL SCH (09:12)
[2021-02-03] MEDS: FLUTICASONE FUROATE 100MCG 14 PUFFS/INHALER INH SCH (09:12)
[2021-02-03] MEDS: guaiFENesin 600 MG TABCR PO SCH ×2 (09:13→21:08)
[2021-02-03] MEDS: IPRATROPIUM BROMIDE NASAL SPRAY 0.06% 15ML SCH (09:13)
[2021-02-03] MEDS: PENTOSAN POLYSULFATE SODIUM 100 MG CAP PO SCH ×3 (09:14→23:46)
[2021-02-03] MEDS: MONTELUKAST SODIUM 10 MG TABLET PO SCH (09:14)
[2021-02-03] MEDS: ACETAMINOPHEN 325 MG TAB PO PRN ×3 (09:39→21:27)
[2021-02-03] MEDS: BACLOFEN 20 MG TAB PO PRN ×2 (13:50→21:08)
[2021-02-03] MEDS: FERROUS SULFATE 325 MG TAB PO SCH ×2 (14:47→22:17)
--- NOTE | 2021-02-03 16:15 | Hospitalist Progress Note ---
Date of Service February 03, 2021 Assessment & Plan (1) Acute hypoxemic respiratory failure: Plan: Not been vaccinated Secondary to severe COVID-19 pneumonia Decadron and Remdesivir initial dose for severe COVID-19 pneumonia. (Patient was counseled regarding potential adverse effects from Remdesivir therapy and provided with patient education sheet.) Superimposed bacterial infection, no sepsis for now Doxycycline for superimposed bacterial infection hx central sleep apnea as per records likely complicating the situation We will continue supplemental oxygen and BiPAP Prone position as tolerated Cough suppressant and use of spirometer and flutter valve May need pulmonology if the condition does not get any better Clinically better but is still requiring very high flow oxygen to maintain saturation Remains better and oxygen requirements has gone down a little bit Advised to be in prone position if possible and will maintain current management Other significant medical conditions are as follows: Migraine/history pseudotumor cerebri, patient currently with minimal headache Denies any more headache Anxiety/mood disorder, at baseline No acute anxiety and or delirium History of gastric bypass without any acute issues 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 difficile Stool for C. difficile DVT prophylaxis per Lovenox subcu Full code Patient requests for her mother to be given periodic updates. Ms. Rohini Joya, contact #[phone]. Admission and Anticipated Discharge Date Admission Date: January 31, 2021 Subjective 02/01/2021 The patient was seen and examined in emergency room in the [facility] area She has been requiring high flow oxygen and also required BiPAP to maintain saturation She has been having symptoms for more than 10 days prior to admission Denies any pain and/or extreme weakness or tiredness 02/02/2021 The patient was seen and examined in telemetry unit and in the Covid room She has been feeling a little better since admission Has cough and is still requiring very high flow oxygen to maintain saturation She cannot be prone but has been trying to lie on her sides 02/03/2021 The patient was seen and examined in telemetry unit and in the Covid room She has been feeling much better Oxygen requirements has gone down Still has cough and generalized weakness Review of Systems Review of Systems: All systems reviewed and are unremarkable except as noted below Respiratory: Moderate shortness of breath at rest on BiPAP Physical Exam Physical Exam: Lying in bed with moderate shortness of breath on BiPAP Constitutional: well developed, well nourished, + ill appearing and + obese Eyes: PERRL, conjunctivae normal, anicteric sclerae ENMT: external ear and nose normal, oropharynx normal Neck: trachea midline, no thyromegaly Respiratory: + respiratory distress (Moderate) and + cough Auscultation: + diminished lung sounds and + crackles (At the bases) Cardiovascular: Rate/Rhythm: regular rate and regular rhythm; not tachycardic Heart Sounds: normal S1 and normal S2; no murmur Extremities: + edema (Trace edema bilaterally) Gastrointestinal (Abdomen): Inspection/Auscultation: normal bowel sounds; abdomen not distended Percussion/Palpation: abdomen soft; abdomen nontender Musculoskeletal: Acute arthritis in any joint Neurologic: Alert, awake and oriented x3. No focal sensory and motor deficit appreciated Results & Data Results & Data ([facility]) Vital Signs (Past 12 Hours) Vital Signs Temp Pulse Pulse Resp BP Pulse Ox 02/03/21 15:49 37.5 C 75 17 116/82 91 02/03/21 15:00 65 02/03/21 11:07 37 C 72 19 112/67 95 02/03/21 08:00 65 02/03/21 07:37 37 C 68 144/89 H 92 02/03/21 04:53 60 Laboratory Results Short CBC 02/03/21 Range/Units 05:15 WBC 9.01 (4.8-10.8) K/uL Hgb 13.6 (12.0-16.0) g/dL Hct 43.0 (37-47) % Plt Count 353 (130-400) K/uL BMP 02/03/21 05:15 Sodium 135 L Potassium 3.9 Chloride 97 L Carbon Dioxide 33 H BUN 16 Creatinine 0.66 Glucose 97 Calcium 9.2 Liver Function 02/03/21 Range/Units 05:15 Total Bilirubin 0.5 (0.2-1) mg/dl AST 40 H (15-37) U/L ALT 58 (12-78) U/L Alkaline Phosphatase 71 (45-117) U/L Albumin 3.0 L (3.4-5.0) gm/dl Medications Administered Current Inpatient Medications Acetaminophen (Acetaminophen 325 Mg Tab) 325 mg PO Q6H PRN PRN Reason: Mild Pain Stop: 03/02/21 21:12 Last Admin: 02/03/21 09:39 Dose: 325 mg Documented by: Al Hydrox/Mg Hydrox/Simethicone (Aluminum/Magnesium/Simeth (Maalox Max) 30 Ml Udc) 30 ml PO Q6H PRN PRN Reason: Heartburn Stop: 03/04/21 01:58 Last Admin: 02/02/21 02:12 Dose: 30 ml Documented by: Albuterol (Albuterol Hfa 8 Gm Inhaler) 2 puffs INH Q2H PRN PRN Reason: sob/wheeze Stop: 03/02/21 21:07 Last Admin: 02/01/21 09:06 Dose: 2 puffs Documented by: Aspirin (Aspirin 81 Mg Ectab) 81 mg PO DAILY MARTHA Stop: 03/03/21 08:59 Last Admin: 02/03/21 09:10 Dose: 81 mg Documented by: Azelastine HCl (Azelastine Hcl 0.1% Nasal 200 Sprays/27,400 Mcg Btl) 2 sprays NA DAILY MARTHA Stop: 03/03/21 08:59 Last Admin: 02/03/21 09:10 Dose: 2 sprays Documented by: Baclofen (Baclofen 20 Mg Tab) 20 mg PO TID PRN PRN Reason: MUSCLE SPASMS Stop: 03/03/21 00:53 Last Admin: 02/03/21 13:50 Dose: 20 mg Documented by: Bupropion HCl (Bupropion Sr 150 Mg Tabcr) 150 mg PO HS MARTHA Stop: 03/03/21 20:59 Last Admin: 02/02/21 20:41 Dose: 150 mg Documented by: Clonazepam (Clonazepam 0.25 Mg Tab) 0.5 mg PO HS MARTHA Stop: 03/03/21 20:59 Last Admin: 02/02/21 21:02 Dose: 0.5 mg Documented by: Doxycycline Hyclate (Doxycycline Hyclate 100 Mg Cap) 100 mg PO BID MARTHA Stop: 02/08/21 08:59 Last Admin: 02/03/21 09:11 Dose: 100 mg Documented by: Enoxaparin Sodium (Enoxaparin Inj 40 Mg/0.4 Ml Syr) 40 mg SQ QAM MARTHA Stop: 03/03/21 08:59 Last Admin: 02/03/21 09:11 Dose: 40 mg Documented by: Epinephrine HCl (Epinephrine Inj 1 Mg/Ml Amp) 0.3 mg IM ONCE PRN PRN Reason: anaphylaxis Stop: 03/03/21 06:19 Eszopiclone (Eszopiclone 1 Mg Tab) 2 mg PO HS MARTHA Stop: 03/03/21 20:59 Last Admin: 02/02/21 21:03 Dose: 2 mg Documented by: Ferrous Sulfate (Ferrous Sulfate 325 Mg Tab) 325 mg PO BID@1100,2300 MARTHA Stop: 03/03/21 10:59 Last Admin: 02/03/21 14:47 Dose: 325 mg Documented by: Fluticasone Furoate (Fluticasone Furoate 100mcg 14 Puffs/Inhaler) 1 puffs INH DAILY MARTHA Stop: 03/03/21 08:59 Last Admin: 02/03/21 09:12 Dose: 1 puffs Documented by: Fluticasone Propionate (Fluticasone Propionate Na Spr 16 Gm Btl) 2 sprays NA DAILY MARTHA Stop: 03/03/21 08:59 Last Admin: 02/03/21 09:12 Dose: 2 sprays Documented by: Furosemide (Furosemide 40 Mg/4 Ml Vial) 40 mg IV DAILY MARTHA Stop: 03/04/21 12:59 Last Admin: 02/03/21 09:12 Dose: 40 mg Documented by: Guaifenesin (Guaifenesin 600 Mg Tabcr) 1,200 mg PO Q12 MARTHA Stop: 03/04/21 20:59 Last Admin: 02/03/21 09:13 Dose: 1,200 mg Documented by: Hydrocodone Bit/Homatropine Methylb (Hydrocodone/Homatropine Syrup 5mg/1.5mg 5ml Udp) 5 ml PO Q6H PRN PRN Reason: Cough Stop: 02/16/21 15:11 Promethazine HCl 12.5 mg/ (Sodium Chloride) 50.5 mls @ 202 mls/hr IV Q6H PRN PRN Reason: Nausea And Vomiting Stop: 03/03/21 00:53 Last Infusion: 02/01/21 09:40 Dose: Infused Documented by: Dexamethasone 6 mg/ Syringe 1.5 mls @ 1 mls/min IV DAILY MARTHA Stop: 03/03/21 08:59 Last Admin: 02/03/21 09:11 Dose: 1 mls/min Documented by: Ipratropium [place] (Ipratropium [place] Nasal [place] 0.06% 15ml) 2 sprays NA DAILY MARTHA Stop: 03/03/21 08:59 Last Admin: 02/03/21 09:13 Dose: 2 sprays Documented by: Montelukast Sodium (Montelukast Sodium 10 Mg Tablet) 10 mg PO QAM MARTHA Stop: 03/03/21 08:59 Last Admin: 02/03/21 09:14 Dose: 10 mg Documented by: Pantoprazole Sodium (Pantoprazole 40 Mg Tab) 40 mg PO DAILYBB [facility] Stop: 03/03/21 06:29 Last Admin: 02/03/21 06:10 Dose: 40 mg Documented by: Pentosan Polysulfate Sodium (Pentosan Polysulfate Sodium 100 Mg Cap) 100 mg PO TID MARTHA Stop: 03/03/21 08:59 Last Admin: 02/03/21 13:50 Dose: 100 mg Documented by: Ropinirole HCl (Ropinirole Hcl 0.25 Mg Tablet) 0.5 mg PO TIDM MARTHA Stop: 03/03/21 07:59 Last Admin: 02/03/21 12:54 Dose: 0.5 mg Documented by: Tramadol HCl (Tramadol Hcl 50 Mg Tablet) 25 - 50 mg PO Q4H PRN PRN Reason: Pain Stop: 03/03/21 00:53 Last Admin: 02/01/21 18:47 Dose: 50 mg Documented by: Vortioxetine (Vortioxetine Hydrobromide [Patient Own Med]) 1 ea PO HS MARTHA Stop: 03/04/21 20:59 Last Admin: 02/02/21 20:46 Dose: 1 ea Documented by:
[2021-02-03] MEDS: CEROVITE ADV FORMULA TAB PO SCH (18:04)
[2021-02-03] MEDS: ESZOPICLONE 1 MG TAB PO SCH (21:03)
[2021-02-03] MEDS: VORTIOXETINE HYDROBROMIDE [PATIENT OWN MED] PO SCH (21:03)
[2021-02-03] MEDS: clonazePAM 0.25 MG TAB PO SCH (21:04)
[2021-02-03] MEDS: buPROPion SR 150 MG TABCR PO SCH (21:06)
[2021-02-03] MEDS: HYDROcodone/HOMATROPINE SYRUP 5MG/1.5MG 5ML UDP PO PRN (21:27)
[2021-02-04] MEDS: PANTOprazole 40 MG TAB PO SCH (05:50)
[2021-02-04] MEDS: HYDROcodone/HOMATROPINE SYRUP 5MG/1.5MG 5ML UDP PO PRN ×2 (05:57→21:03)
[2021-02-04 08:38] LABS: Albumin Level 3.2 gm/dl (3.4-5.0); BUN Creatinine Ratio 19.3 (10-20); Calcium 9.1 mg/dl (8.5-10.1); Creatinine Clr Calc Pharmacy 96.3 ml/min; Est GFR (African American) 98.2 ml/min; Est GFR (Non-African American) 84.8 ml/min; Magnesium 2.9 mg/dl (1.8-2.4); Potassium 3.6 mmol/L (3.5-5.1)
[2021-02-04 09:07] LABS: Albumin Globulin Ratio 0.7 (0.9-2); Bilirubin,Total 0.5 mg/dl (0.2-1); Globulin 4.5 gm/dl (2.5-4.0); Phosphorus 4.1 mg/dl (2.5-4.9); Total Protein 7.7 gm/dl (6.4-8.2)
[2021-02-04] MEDS: AZELASTINE HCL 0.1% NASAL 200 SPRAYS/27,400 MCG BTL SCH (09:12)
[2021-02-04] MEDS: IPRATROPIUM BROMIDE NASAL SPRAY 0.06% 15ML SCH (09:12)
[2021-02-04] MEDS: FLUTICASONE FUROATE 100MCG 14 PUFFS/INHALER INH SCH (09:12)
[2021-02-04] MEDS: FLUTICASONE PROPIONATE NA SPR 16 GM BTL SCH (09:12)
[2021-02-04] MEDS: ENOXAPARIN INJ 40 MG/0.4 ML SYR SQ SCH (09:13)
[2021-02-04] MEDS: dexAMETHasone 6 MG in SYRINGE 0 ML IV SCH (09:13)
[2021-02-04] MEDS: ASPIRIN 81 MG ECTAB PO SCH (09:17)
[2021-02-04] MEDS: DOXYCYCLINE HYCLATE 100 MG CAP PO SCH ×2 (09:17→21:04)
[2021-02-04] MEDS: rOPINIRole HCL 0.25 MG TABLET PO SCH ×3 (09:17→17:13)
[2021-02-04] MEDS: guaiFENesin 600 MG TABCR PO SCH ×2 (09:18→21:03)
[2021-02-04] MEDS: PENTOSAN POLYSULFATE SODIUM 100 MG CAP PO SCH ×3 (09:18→21:05)
[2021-02-04] MEDS: CEROVITE ADV FORMULA TAB PO SCH (09:18)
[2021-02-04] MEDS: FUROSEMIDE 40 MG/4 ML VIAL IV SCH (09:18)
[2021-02-04] MEDS: MONTELUKAST SODIUM 10 MG TABLET PO SCH (09:18)
[2021-02-04] MEDS: BACLOFEN 20 MG TAB PO PRN ×2 (14:15→21:03)
[2021-02-04] MEDS: FERROUS SULFATE 325 MG TAB PO SCH ×2 (14:15→22:41)
--- NOTE | 2021-02-04 15:09 | Hospitalist Progress Note ---
Date of Service February 04, 2021 Assessment & Plan (1) Acute hypoxemic respiratory failure: Plan: Not been vaccinated Secondary to severe COVID-19 pneumonia Decadron and Remdesivir initial dose for severe COVID-19 pneumonia. (Patient was counseled regarding potential adverse effects from Remdesivir therapy and provided with patient education sheet.) Superimposed bacterial infection, no sepsis for now Doxycycline for superimposed bacterial infection hx central sleep apnea as per records likely complicating the situation We will continue supplemental oxygen and BiPAP Prone position as tolerated Cough suppressant and use of spirometer and flutter valve May need pulmonology if the condition does not get any better Clinically better but is still requiring very high flow oxygen to maintain saturation Remains better and oxygen requirements has gone down a little bit Advised to be in prone position if possible and will maintain current management Remains stable and a little better clinically We will continue current management including Lasix and oxygen as needed Other significant medical conditions are as follows: Migraine/history pseudotumor cerebri, patient currently with minimal headache Denies any more headache Anxiety/mood disorder, at baseline No acute anxiety and or delirium History of gastric bypass without any acute issues 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 difficile Stool for C. difficile DVT prophylaxis per Lovenox subcu Full code Patient requests for her mother to be given periodic updates. Ms. Rohini Joya, contact #[phone]. Admission and Anticipated Discharge Date Admission Date: January 31, 2021 Subjective 02/01/2021 The patient was seen and examined in emergency room in the [facility] area She has been requiring high flow oxygen and also required BiPAP to maintain saturation She has been having symptoms for more than 10 days prior to admission Denies any pain and/or extreme weakness or tiredness 02/02/2021 The patient was seen and examined in telemetry unit and in the Covid room She has been feeling a little better since admission Has cough and is still requiring very high flow oxygen to maintain saturation She cannot be prone but has been trying to lie on her sides 02/03/2021 The patient was seen and examined in telemetry unit and in the Covid room She has been feeling much better Oxygen requirements has gone down Still has cough and generalized weakness 02/04/2021 The patient was seen and examined in telemetry unit and in the Covid room She feels better and requiring about 7 L of oxygen to maintain saturation Very much worried about her Review of Systems Review of Systems: All systems reviewed and are unremarkable except as noted below Respiratory: Moderate shortness of breath at rest on BiPAP Physical Exam Physical Exam: Lying in bed with moderate shortness of breath on BiPAP Constitutional: well developed, well nourished, + ill appearing and + obese Eyes: PERRL, conjunctivae normal, anicteric sclerae ENMT: external ear and nose normal, oropharynx normal Neck: trachea midline, no thyromegaly Respiratory: + respiratory distress (Moderate) and + cough Auscultation: + diminished lung sounds and + crackles (At the bases) Cardiovascular: Rate/Rhythm: regular rate and regular rhythm; not tachycardic Heart Sounds: normal S1 and normal S2; no murmur Extremities: + edema (Trace edema bilaterally) Gastrointestinal (Abdomen): Inspection/Auscultation: normal bowel sounds; abdomen not distended Percussion/Palpation: abdomen soft; abdomen nontender Musculoskeletal: No acute distress at rest Neurologic: Alert, awake and oriented x3 .no focal sensory or motor deficit appreciated Lymphatic: no cervical or axillary lymphadenopathy Results & Data Results & Data ([facility]) Vital Signs (Past 12 Hours) Vital Signs Temp Pulse Pulse Pulse Resp BP Pulse Ox 02/04/21 11:40 37.1 C 53 L 19 131/80 95 02/04/21 08:00 68 02/04/21 07:43 37.0 C 70 19 114/72 94 02/04/21 03:35 36.8 C 66 18 125/66 92 Laboratory Results [facility] 02/04/21 07:12 Sodium 137 Potassium 3.6 Chloride 94 L Carbon Dioxide 32 BUN 15 Creatinine 0.80 Glucose 120 H Calcium 9.1 Liver Function 02/04/21 Range/Units 07:12 Total Bilirubin 0.5 (0.2-1) mg/dl AST 37 (15-37) U/L ALT 60 (12-78) U/L Alkaline Phosphatase 65 (45-117) U/L Albumin 3.2 L (3.4-5.0) gm/dl Medications Administered Current Inpatient Medications Acetaminophen (Acetaminophen 325 Mg Tab) 325 mg PO Q6H PRN PRN Reason: Mild Pain Stop: 03/02/21 21:12 Last Admin: 02/03/21 21:27 Dose: 325 mg Documented by: Al Hydrox/Mg Hydrox/Simethicone (Aluminum/Magnesium/Simeth (Maalox Max) 30 Ml Udc) 30 ml PO Q6H PRN PRN Reason: Heartburn Stop: 03/04/21 01:58 Last Admin: 02/02/21 02:12 Dose: 30 ml Documented by: Albuterol (Albuterol Hfa 8 Gm Inhaler) 2 puffs INH Q2H PRN PRN Reason: sob/wheeze Stop: 03/02/21 21:07 Last Admin: 02/01/21 09:06 Dose: 2 puffs Documented by: Aspirin (Aspirin 81 Mg Ectab) 81 mg PO DAILY MARTHA Stop: 03/03/21 08:59 Last Admin: 02/04/21 09:17 Dose: 81 mg Documented by: Azelastine HCl (Azelastine Hcl 0.1% Nasal 200 Sprays/27,400 Mcg Btl) 2 sprays NA DAILY MARTHA Stop: 03/03/21 08:59 Last Admin: 02/04/21 09:12 Dose: 2 sprays Documented by: Baclofen (Baclofen 20 Mg Tab) 20 mg PO TID PRN PRN Reason: MUSCLE SPASMS Stop: 03/03/21 00:53 Last Admin: 02/04/21 14:15 Dose: 20 mg Documented by: Bupropion HCl (Bupropion Sr 150 Mg Tabcr) 150 mg PO HS MARTHA Stop: 03/03/21 20:59 Last Admin: 02/03/21 21:06 Dose: 150 mg Documented by: Clonazepam (Clonazepam 0.25 Mg Tab) 0.5 mg PO HS MARTHA Stop: 03/03/21 20:59 Last Admin: 02/03/21 21:04 Dose: 0.5 mg Documented by: Doxycycline Hyclate (Doxycycline Hyclate 100 Mg Cap) 100 mg PO BID MARTHA Stop: 02/08/21 08:59 Last Admin: 02/04/21 09:17 Dose: 100 mg Documented by: Enoxaparin Sodium (Enoxaparin Inj 40 Mg/0.4 Ml Syr) 40 mg SQ QAM MARTHA Stop: 03/03/21 08:59 Last Admin: 02/04/21 09:13 Dose: 40 mg Documented by: Epinephrine HCl (Epinephrine Inj 1 Mg/Ml Amp) 0.3 mg IM ONCE PRN PRN Reason: anaphylaxis Stop: 03/03/21 06:19 Eszopiclone (Eszopiclone 1 Mg Tab) 2 mg PO HS MARTHA Stop: 03/03/21 20:59 Last Admin: 02/03/21 21:03 Dose: 2 mg Documented by: Ferrous Sulfate (Ferrous Sulfate 325 Mg Tab) 325 mg PO BID@1100,2300 MARTHA Stop: 03/03/21 10:59 Last Admin: 02/04/21 14:15 Dose: 325 mg Documented by: Fluticasone Furoate (Fluticasone Furoate 100mcg 14 Puffs/Inhaler) 1 puffs INH DAILY MARTHA Stop: 03/03/21 08:59 Last Admin: 02/04/21 09:12 Dose: 1 puffs Documented by: Fluticasone Propionate (Fluticasone Propionate Na Spr 16 Gm Btl) 2 sprays NA DAILY MARTHA Stop: 03/03/21 08:59 Last Admin: 02/04/21 09:12 Dose: 2 sprays Documented by: Furosemide (Furosemide 40 Mg/4 Ml Vial) 40 mg IV DAILY MARTHA Stop: 03/04/21 12:59 Last Admin: 02/04/21 09:18 Dose: 40 mg Documented by: Guaifenesin (Guaifenesin 600 Mg Tabcr) 1,200 mg PO Q12 MARTHA Stop: 03/04/21 20:59 Last Admin: 02/04/21 09:18 Dose: 1,200 mg Documented by: Hydrocodone Bit/Homatropine Methylb (Hydrocodone/Homatropine Syrup 5mg/1.5mg 5ml Udp) 5 ml PO Q6H PRN PRN Reason: Cough Stop: 02/16/21 15:11 Last Admin: 02/04/21 05:57 Dose: 5 ml Documented by: Promethazine HCl 12.5 mg/ (Sodium Chloride) 50.5 mls @ 202 mls/hr IV Q6H PRN PRN Reason: Nausea And Vomiting Stop: 03/03/21 00:53 Last Infusion: 02/01/21 09:40 Dose: Infused Documented by: Dexamethasone 6 mg/ Syringe 1.5 mls @ 1 mls/min IV DAILY MARTHA Stop: 03/03/21 08:59 Last Admin: 02/04/21 09:13 Dose: 1 mls/min Documented by: Ipratropium [place] (Ipratropium [place] Nasal [place] 0.06% 15ml) 2 sprays NA D AILY MARTHA Stop: 03/03/21 08:59 Last Admin: 02/04/21 09:12 Dose: 2 sprays Documented by: Montelukast Sodium (Montelukast Sodium 10 Mg Tablet) 10 mg PO QAM MARTHA Stop: 03/03/21 08:59 Last Admin: 02/04/21 09:18 Dose: 10 mg Documented by: Multivitamins/Minerals (Cerovite Adv Formula Tab) 1 tab PO QAM MARTHA Stop: 03/05/21 16:59 Last Admin: 02/04/21 09:18 Dose: 1 tab Documented by: Pantoprazole Sodium (Pantoprazole 40 Mg Tab) 40 mg PO DAILYBB MARTHA Stop: 03/03/21 06:29 Last Admin: 02/04/21 05:50 Dose: 40 mg Documented by: Pentosan Polysulfate Sodium (Pentosan Polysulfate Sodium 100 Mg Cap) 100 mg PO TID MARTHA Stop: 03/03/21 08:59 Last Admin: 02/04/21 14:15 Dose: 100 mg Documented by: Ropinirole HCl (Ropinirole Hcl 0.25 Mg Tablet) 0.5 mg PO TIDM MARTHA Stop: 03/03/21 07:59 Last Admin: 02/04/21 12:20 Dose: 0.5 mg Documented by: Tramadol HCl (Tramadol Hcl 50 Mg Tablet) 25 - 50 mg PO Q4H PRN PRN Reason: Pain Stop: 03/03/21 00:53 Last Admin: 02/01/21 18:47 Dose: 50 mg Documented by: Vortioxetine (Vortioxetine Hydrobromide [Patient Own Med]) 1 ea PO HS MARTHA Stop: 03/04/21 20:59 Last Admin: 02/03/21 21:03 Dose: 1 ea Documented by:
[2021-02-04] MEDS: ACETAMINOPHEN 325 MG TAB PO PRN (17:19)
[2021-02-04] MEDS: ESZOPICLONE 1 MG TAB PO SCH (21:03)
[2021-02-04] MEDS: clonazePAM 0.25 MG TAB PO SCH (21:03)
[2021-02-04] MEDS: buPROPion SR 150 MG TABCR PO SCH (21:04)
[2021-02-04] MEDS: VORTIOXETINE HYDROBROMIDE [PATIENT OWN MED] PO SCH (21:05)
[2021-02-05] MEDS: PANTOprazole 40 MG TAB PO SCH (06:07)
[2021-02-05] MEDS: AZELASTINE HCL 0.1% NASAL 200 SPRAYS/27,400 MCG BTL SCH (08:23)
[2021-02-05] MEDS: FLUTICASONE PROPIONATE NA SPR 16 GM BTL SCH (08:23)
[2021-02-05] MEDS: FLUTICASONE FUROATE 100MCG 14 PUFFS/INHALER INH SCH (08:24)
[2021-02-05] MEDS: IPRATROPIUM BROMIDE NASAL SPRAY 0.06% 15ML SCH (08:24)
[2021-02-05] MEDS: rOPINIRole HCL 0.25 MG TABLET PO SCH ×3 (08:25→17:20)
[2021-02-05] MEDS: ASPIRIN 81 MG ECTAB PO SCH (08:25)
[2021-02-05] MEDS: DOXYCYCLINE HYCLATE 100 MG CAP PO SCH ×2 (08:26→20:15)
[2021-02-05] MEDS: dexAMETHasone 6 MG in SYRINGE 0 ML IV SCH (08:26)
[2021-02-05] MEDS: ENOXAPARIN INJ 40 MG/0.4 ML SYR SQ SCH (08:26)
[2021-02-05] MEDS: guaiFENesin 600 MG TABCR PO SCH ×2 (08:27→20:14)
[2021-02-05] MEDS: FUROSEMIDE 40 MG/4 ML VIAL IV SCH (08:27)
[2021-02-05] MEDS: MONTELUKAST SODIUM 10 MG TABLET PO SCH (08:27)
[2021-02-05] MEDS: PENTOSAN POLYSULFATE SODIUM 100 MG CAP PO SCH ×3 (08:28→20:14)
[2021-02-05] MEDS: BACLOFEN 20 MG TAB PO PRN ×2 (08:28→20:15)
[2021-02-05] MEDS: CEROVITE ADV FORMULA TAB PO SCH (08:28)
[2021-02-05] MEDS: FERROUS SULFATE 325 MG TAB PO SCH ×2 (11:42→22:02)
[2021-02-05] MEDS: ACETAMINOPHEN 325 MG TAB PO PRN (14:54)
--- NOTE | 2021-02-05 15:42 | Hospitalist Progress Note ---
Date of Service February 05, 2021 Assessment & Plan (1) Acute hypoxemic respiratory failure: Plan: Not been vaccinated Secondary to severe COVID-19 pneumonia Decadron and Remdesivir initial dose for severe COVID-19 pneumonia. (Patient was counseled regarding potential adverse effects from Remdesivir therapy and provided with patient education sheet.) Superimposed bacterial infection, no sepsis for now Doxycycline for superimposed bacterial infection hx central sleep apnea as per records likely complicating the situation We will continue supplemental oxygen and BiPAP Prone position as tolerated Cough suppressant and use of spirometer and flutter valve May need pulmonology if the condition does not get any better Clinically better but is still requiring very high flow oxygen to maintain saturation Remains better and oxygen requirements has gone down a little bit Advised to be in prone position if possible and will maintain current management Remains stable and a little better clinically We will continue current management including Lasix and oxygen as needed Still requiring about 5-6 l of oxygen to maintain saturation-clinically a little better and will continue current management Other significant medical conditions are as follows: Migraine/history pseudotumor cerebri, patient currently with minimal headache Denies any more headache Anxiety/mood disorder, at baseline No acute anxiety and or delirium History of gastric bypass without any acute issues 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 difficile Stool for C. difficile DVT prophylaxis per Lovenox subcu Full code Patient requests for her mother to be given periodic updates. Ms. Rohini Joya, contact #[phone]. Admission and Anticipated Discharge Date Admission Date: January 31, 2021 Subjective 02/01/2021 The patient was seen and examined in emergency room in the holding area She has been requiring high flow oxygen and also required BiPAP to maintain saturation She has been having symptoms for more than 10 days prior to admission Denies any pain and/or extreme weakness or tiredness 02/02/2021 The patient was seen and examined in telemetry unit and in the Covid room She has been feeling a little better since admission Has cough and is still requiring very high flow oxygen to maintain saturation She cannot be prone but has been trying to lie on her sides 02/03/2021 The patient was seen and examined in telemetry unit and in the Covid room She has been feeling much better Oxygen requirements has gone down Still has cough and generalized weakness 02/04/2021 The patient was seen and examined in telemetry unit and in the Covid room She feels better and requiring about 7 L of oxygen to maintain saturation Very much worried about her 02/05/2021 The patient was seen and examined in telemetry unit and in the Covid room She feels a little better Denies any significant symptoms at rest Review of Systems Review of Systems: All systems reviewed and are unremarkable except as noted below Respiratory: Moderate shortness of breath at rest on BiPAP Physical Exam Physical Exam: Lying in bed with moderate shortness of breath on BiPAP Constitutional: well developed, well nourished, + ill appearing and + obese Eyes: PERRL, conjunctivae normal, anicteric sclerae ENMT: external ear and nose normal, oropharynx normal Neck: trachea midline, no thyromegaly Respiratory: + respiratory distress (Moderate) and + cough Auscultation: + diminished lung sounds and + crackles (At the bases) Cardiovascular: Rate/Rhythm: regular rate and regular rhythm; not tachycardic Heart Sounds: normal S1 and normal S2; no murmur Extremities: + edema (Trace edema bilaterally) Gastrointestinal (Abdomen): Inspection/Auscultation: normal bowel sounds; abdomen not distended Percussion/Palpation: abdomen soft; abdomen nontender Musculoskeletal: No acute arthritis in any joint Neurologic: Alert, awake and oriented x3. No focal sensory or motor deficit appreciated Lymphatic: no cervical or axillary lymphadenopathy Results & Data Results & Data ([facility]) Vital Signs (Past 12 Hours) Vital Signs Temp Pulse Pulse Resp BP Pulse Ox 02/05/21 14:51 36.9 C 81 18 128/84 93 02/05/21 11:52 36.8 C 96 H 20 140/85 96 02/05/21 11:12 75 02/05/21 08:02 37.3 C 65 20 131/87 95 02/05/21 06:53 77 Medications Administered Current Inpatient Medications Acetaminophen (Acetaminophen 325 Mg Tab) 325 mg PO Q6H PRN PRN Reason: Mild Pain Stop: 03/02/21 21:12 Last Admin: 02/05/21 14:54 Dose: 325 mg Documented by: Al Hydrox/Mg Hydrox/Simethicone (Aluminum/Magnesium/Simeth (Maalox Max) 30 Ml Udc) 30 ml PO Q6H PRN PRN Reason: Heartburn Stop: 03/04/21 01:58 Last Admin: 02/02/21 02:12 Dose: 30 ml Documented by: Albuterol (Albuterol Hfa 8 Gm Inhaler) 2 puffs INH Q2H PRN PRN Reason: sob/wheeze Stop: 03/02/21 21:07 Last Admin: 02/01/21 09:06 Dose: 2 puffs Documented by: Aspirin (Aspirin 81 Mg Ectab) 81 mg PO DAILY MARTHA Stop: 03/03/21 08:59 Last Admin: 02/05/21 08:25 Dose: 81 mg Documented by: Azelastine HCl (Azelastine Hcl 0.1% Nasal 200 Sprays/27,400 Mcg Btl) 2 sprays NA DAILY MARTHA Stop: 03/03/21 08:59 Last Admin: 02/05/21 08:23 Dose: 2 sprays Documented by: Baclofen (Baclofen 20 Mg Tab) 20 mg PO TID PRN PRN Reason: MUSCLE SPASMS Stop: 03/03/21 00:53 Last Admin: 02/05/21 08:28 Dose: 20 mg Documented by: Bupropion HCl (Bupropion Sr 150 Mg Tabcr) 150 mg PO HS MARTHA Stop: 03/03/21 20:59 Last Admin: 02/04/21 21:04 Dose: 150 mg Documented by: Clonazepam (Clonazepam 0.25 Mg Tab) 0.5 mg PO HS MARTHA Stop: 03/03/21 20:59 Last Admin: 02/04/21 21:03 Dose: 0.5 mg Documented by: Doxycycline Hyclate (Doxycycline Hyclate 100 Mg Cap) 100 mg PO BID MARTHA Stop: 02/08/21 08:59 Last Admin: 02/05/21 08:26 Dose: 100 mg Documented by: Enoxaparin Sodium (Enoxaparin Inj 40 Mg/0.4 Ml Syr) 40 mg SQ QAM MARTHA Stop: 03/03/21 08:59 Last Admin: 02/05/21 08:26 Dose: 40 mg Documented by: Epinephrine HCl (Epinephrine Inj 1 Mg/Ml Amp) 0.3 mg IM ONCE PRN PRN Reason: anaphylaxis Stop: 03/03/21 06:19 Eszopiclone (Eszopiclone 1 Mg Tab) 2 mg PO HS MARTHA Stop: 03/03/21 20:59 Last Admin: 02/04/21 21:03 Dose: 2 mg Documented by: Ferrous Sulfate (Ferrous Sulfate 325 Mg Tab) 325 mg PO BID@1100,2300 MARTHA Stop: 03/03/21 10:59 Last Admin: 02/05/21 11:42 Dose: 325 mg Documented by: Fluticasone Furoate (Fluticasone Furoate 100mcg 14 Puffs/Inhaler) 1 puffs INH DAILY MARTHA Stop: 03/03/21 08:59 Last Admin: 02/05/21 08:24 Dose: 1 puffs Documented by: Fluticasone Propionate (Fluticasone Propionate Na Spr 16 Gm Btl) 2 sprays NA DAILY MARTHA Stop: 03/03/21 08:59 Last Admin: 02/05/21 08:23 Dose: 2 sprays Documented by: Furosemide (Furosemide 40 Mg/4 Ml Vial) 40 mg IV DAILY MARTHA Stop: 03/04/21 12:59 Last Admin: 02/05/21 08:27 Dose: 40 mg Documented by: Guaifenesin (Guaifenesin 600 Mg Tabcr) 1,200 mg PO Q12 MARTHA Stop: 03/04/21 20:59 Last Admin: 02/05/21 08:27 Dose: 1,200 mg Documented by: Hydrocodone Bit/Homatropine Methylb (Hydrocodone/Homatropine Syrup 5mg/1.5mg 5ml Udp) 5 ml PO Q6H PRN PRN Reason: Cough Stop: 02/16/21 15:11 Last Admin: 02/04/21 21:03 Dose: 5 ml Documented by: Promethazine HCl 12.5 mg/ (Sodium Chloride) 50.5 mls @ 202 mls/hr IV Q6H PRN PRN Reason: Nausea And Vomiting Stop: 03/03/21 00:53 Last Infusion: 02/01/21 09:40 Dose: Infused Documented by: Dexamethasone 6 mg/ Syringe 1.5 mls @ 1 mls/min IV DAILY MARTHA Stop: 03/03/21 08:59 Last Admin: 02/05/21 08:26 Dose: 1 mls/min Documented by: Ipratropium [place] (Ipratropium [place] Nasal [place] 0.06% 15ml) 2 sprays NA DAILY MARTHA Stop: 03/03/21 08:59 Last Admin: 02/05/21 08:24 Dose: 2 sprays Documented by: Montelukast Sodium (Montelukast Sodium 10 Mg Tablet) 10 mg PO QAM MARTHA Stop: 03/03/21 08:59 Last Admin: 02/05/21 08:27 Dose: 10 mg Documented by: Multivitamins/Minerals (Cerovite Adv Formula Tab) 1 tab PO QAM MARTHA Stop: 03/05/21 16:59 Last Admin: 02/05/21 08:28 Dose: 1 tab Documented by: Pantoprazole Sodium (Pantoprazole 40 Mg Tab) 40 mg PO DAILYBB MARTHA Stop: 03/03/21 06:29 Last Admin: 02/05/21 06:07 Dose: 40 mg Documented by: Pentosan Polysulfate Sodium (Pentosan Polysulfate Sodium 100 Mg Cap) 100 mg PO TID MARTHA Stop: 03/03/21 08:59 Last Admin: 02/05/21 13:52 Dose: 100 mg Documented by: Ropinirole HCl (Ropinirole Hcl 0.25 Mg Tablet) 0.5 mg PO TIDM MARTHA Stop: 03/03/21 07:59 Last Admin: 02/05/21 11:43 Dose: 0.5 mg Documented by: Tramadol HCl (Tramadol Hcl 50 Mg Tablet) 25 - 50 mg PO Q4H PRN PRN Reason: Pain Stop: 03/03/21 00:53 Last Admin: 02/01/21 18:47 Dose: 50 mg Documented by: Vortioxetine (Vortioxetine Hydrobromide [Patient Own Med]) 1 ea PO HS MARTHA Stop: 03/04/21 20:59 Last Admin: 02/04/21 21:05 Dose: 1 ea Documented by:
[2021-02-05] MEDS: traMADol HCL 50 MG TABLET PO PRN (18:20)
[2021-02-05] MEDS: clonazePAM 0.25 MG TAB PO SCH (20:11)
[2021-02-05] MEDS: VORTIOXETINE HYDROBROMIDE [PATIENT OWN MED] PO SCH (20:12)
[2021-02-05] MEDS: HYDROcodone/HOMATROPINE SYRUP 5MG/1.5MG 5ML UDP PO PRN (20:12)
[2021-02-05] MEDS: ESZOPICLONE 1 MG TAB PO SCH (20:12)
[2021-02-05] MEDS: buPROPion SR 150 MG TABCR PO SCH (20:16)
[2021-02-06] MEDS: PANTOprazole 40 MG TAB PO SCH (06:30)
[2021-02-06] MEDS: dexAMETHasone 6 MG in SYRINGE 0 ML IV SCH (08:29)
[2021-02-06] MEDS: CEROVITE ADV FORMULA TAB PO SCH (08:30)
[2021-02-06] MEDS: DOXYCYCLINE HYCLATE 100 MG CAP PO SCH ×2 (08:30→20:08)
[2021-02-06] MEDS: PENTOSAN POLYSULFATE SODIUM 100 MG CAP PO SCH ×3 (08:30→20:09)
[2021-02-06] MEDS: ENOXAPARIN INJ 40 MG/0.4 ML SYR SQ SCH (08:31)
[2021-02-06] MEDS: rOPINIRole HCL 0.25 MG TABLET PO SCH ×3 (08:32→17:28)
[2021-02-06] MEDS: ASPIRIN 81 MG ECTAB PO SCH (08:32)
[2021-02-06] MEDS: guaiFENesin 600 MG TABCR PO SCH ×2 (08:33→20:09)
[2021-02-06] MEDS: BACLOFEN 20 MG TAB PO PRN ×2 (08:33→20:09)
[2021-02-06] MEDS: MONTELUKAST SODIUM 10 MG TABLET PO SCH (08:33)
[2021-02-06] MEDS: FUROSEMIDE 40 MG/4 ML VIAL IV SCH (08:34)
[2021-02-06] MEDS: FLUTICASONE PROPIONATE NA SPR 16 GM BTL SCH (08:34)
[2021-02-06] MEDS: AZELASTINE HCL 0.1% NASAL 200 SPRAYS/27,400 MCG BTL SCH (08:35)
[2021-02-06] MEDS: FLUTICASONE FUROATE 100MCG 14 PUFFS/INHALER INH SCH (08:35)
[2021-02-06] MEDS: IPRATROPIUM BROMIDE NASAL SPRAY 0.06% 15ML SCH (08:36)
[2021-02-06] MEDS: FERROUS SULFATE 325 MG TAB PO SCH ×2 (12:22→22:30)
--- NOTE | 2021-02-06 16:25 | Hospitalist Progress Note ---
Date of Service February 06, 2021 Assessment & Plan (1) Acute hypoxemic respiratory failure: Plan: Not been vaccinated Secondary to severe COVID-19 pneumonia Decadron and Remdesivir initial dose for severe COVID-19 pneumonia. (Patient was counseled regarding potential adverse effects from Remdesivir therapy and provided with patient education sheet.) Superimposed bacterial infection, no sepsis for now Doxycycline for superimposed bacterial infection hx central sleep apnea as per records likely complicating the situation We will continue supplemental oxygen and BiPAP Prone position as tolerated Cough suppressant and use of spirometer and flutter valve May need pulmonology if the condition does not get any better Clinically better but is still requiring very high flow oxygen to maintain saturation Remains better and oxygen requirements has gone down a little bit Advised to be in prone position if possible and will maintain current management Remains stable and a little better clinically We will continue current management including Lasix and oxygen as needed Still requiring about 5-6 l of oxygen to maintain saturation-clinically a little better and will continue current management Clinically better but gets very short of breath with exertion Oxygen requirements has come down to 4 L She will be better off staying another day and will get it to a stable O2 saturation test tomorrow If she requires 4 L or less with ambulation and she feels otherwise fine will be discharged home Other significant medical conditions are as follows: Migraine/history pseudotumor cerebri, patient currently with minimal headache Denies any more headache Anxiety/mood disorder, at baseline No acute anxiety and or delirium History of gastric bypass without any acute issues 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 difficile Stool for C. difficile DVT prophylaxis per Lovenox subcu Full code Patient requests for her mother to be given periodic updates. Ms. Rohini Joya, contact #[phone]. Admission and Anticipated Discharge Date Admission Date: January 31, 2021 Subjective 02/01/2021 The patient was seen and examined in emergency room in the [facility] area She has been requiring high flow oxygen and also required BiPAP to maintain saturation She has been having symptoms for more than 10 days prior to admission Denies any pain and/or extreme weakness or tiredness 02/02/2021 The patient was seen and examined in telemetry unit and in the Covid room She has been feeling a little better since admission Has cough and is still requiring very high flow oxygen to maintain saturation She cannot be prone but has been trying to lie on her sides 02/03/2021 The patient was seen and examined in telemetry unit and in the Covid room She has been feeling much better Oxygen requirements has gone down Still has cough and generalized weakness 02/04/2021 The patient was seen and examined in telemetry unit and in the Covid room She feels better and requiring about 7 L of oxygen to maintain saturation Very much worried about her 02/05/2021 The patient was seen and examined in telemetry unit and in the Covid room She feels a little better Denies any significant symptoms at rest 02/06/2021 The patient was seen and examined in telemetry unit and in the Covid room She facilitated better at rest and requiring 4 L of oxygen to maintain saturation She gets tired and short of breath with exertion She wants to go home but will plan to get a to a stable O2 saturation test tomorrow before discharge if she qualifies Review of Systems Review of Systems: All systems reviewed and are unremarkable except as noted below Respiratory: Moderate shortness of breath at rest on BiPAP Physical Exam Physical Exam: Lying in bed with moderate shortness of breath on BiPAP Constitutional: well developed, well nourished, + ill appearing and + obese Eyes: PERRL, conjunctivae normal, anicteric sclerae ENMT: external ear and nose normal, oropharynx normal Neck: trachea midline, no thyromegaly Respiratory: + respiratory distress (Moderate) and + cough Auscultation: + diminished lung sounds and + crackles (At the bases) Cardiovascular: Rate/Rhythm: regular rate and regular rhythm; not tachycardic Heart Sounds: normal S1 and normal S2; no murmur Extremities: + edema (Trace edema bilaterally) Gastrointestinal (Abdomen): Inspection/Auscultation: normal bowel sounds; abdomen not distended Percussion/Palpation: abdomen soft; abdomen nontender Musculoskeletal: No acute arthritis in any of the joint Neurologic: Alert, awake and oriented x3. Generally weak but no focal sensory and motor deficit appreciated Lymphatic: no cervical or axillary lymphadenopathy Results & Data Results & Data ([facility]) Vital Signs (Past 12 Hours) Vital Signs Temp Pulse Pulse Pulse Resp BP BP 02/06/21 14:56 37.7 C H 108 H 22 136/104 H 02/06/21 12:02 36.7 C 102 H 20 129/94 02/06/21 07:58 36.8 C 80 20 109/52 L 02/06/21 07:00 76 02/06/21 06:00 66 Pulse Ox 02/06/21 14:56 94 02/06/21 12:02 97 02/06/21 07:58 94 02/06/21 07:00 02/06/21 06:00 Medications Administered Current Inpatient Medications Acetaminophen (Acetaminophen 325 Mg Tab) 325 mg PO Q6H PRN PRN Reason: Mild Pain Stop: 03/02/21 21:12 Last Admin: 02/05/21 14:54 Dose: 325 mg Documented by: Al Hydrox/Mg Hydrox/Simethicone (Aluminum/Magnesium/Simeth (Maalox Max) 30 Ml Udc) 30 ml PO Q6H PRN PRN Reason: Heartburn Stop: 03/04/21 01:58 Last Admin: 02/02/21 02:12 Dose: 30 ml Documented by: Albuterol (Albuterol Hfa 8 Gm Inhaler) 2 puffs INH Q2H PRN PRN Reason: sob/wheeze Stop: 03/02/21 21:07 Last Admin: 02/01/21 09:06 Dose: 2 puffs Documented by: Aspirin (Aspirin 81 Mg Ectab) 81 mg PO DAILY MARTHA Stop: 03/03/21 08:59 Last Admin: 02/06/21 08:32 Dose: 81 mg Documented by: Azelastine HCl (Azelastine Hcl 0.1% Nasal 200 Sprays/27,400 Mcg Btl) 2 sprays NA DAILY MARTHA Stop: 03/03/21 08:59 Last Admin: 02/06/21 08:35 Dose: 2 sprays Documented by: Baclofen (Baclofen 20 Mg Tab) 20 mg PO TID PRN PRN Reason: MUSCLE SPASMS Stop: 03/03/21 00:53 Last Admin: 02/06/21 08:33 Dose: 20 mg Documented by: Bupropion HCl (Bupropion Sr 150 Mg Tabcr) 150 mg PO HS MARTHA Stop: 03/03/21 20:59 Last Admin: 02/05/21 20:16 Dose: 150 mg Documented by: Clonazepam (Clonazepam 0.25 Mg Tab) 0.5 mg PO HS MARTHA Stop: 03/03/21 20:59 Last Admin: 02/05/21 20:11 Dose: 0.5 mg Documented by: Doxycycline Hyclate (Doxycycline Hyclate 100 Mg Cap) 100 mg PO BID MARTHA Stop: 02/08/21 08:59 Last Admin: 02/06/21 08:30 Dose: 100 mg Documented by: Enoxaparin Sodium (Enoxaparin Inj 40 Mg/0.4 Ml Syr) 40 mg SQ QAM MARTHA Stop: 03/03/21 08:59 Last Admin: 02/06/21 08:31 Dose: 40 mg Documented by: Epinephrine HCl (Epinephrine Inj 1 Mg/Ml Amp) 0.3 mg IM ONCE PRN PRN Reason: anaphylaxis Stop: 03/03/21 06:19 Eszopiclone (Eszopiclone 1 Mg Tab) 2 mg PO HS MARTHA Stop: 03/03/21 20:59 Last Admin: 02/05/21 20:12 Dose: 2 mg Documented by: Ferrous Sulfate (Ferrous Sulfate 325 Mg Tab) 325 mg PO BID@1100,2300 MARTHA Stop: 03/03/21 10:59 Last Admin: 02/06/21 12:22 Dose: 325 mg Documented by: Fluticasone Furoate (Fluticasone Furoate 100mcg 14 Puffs/Inhaler) 1 puffs INH DAILY MARTHA Stop: 03/03/21 08:59 Last Admin: 02/06/21 08:35 Dose: 1 puffs Documented by: Fluticasone Propionate (Fluticasone Propionate Na Spr 16 Gm Btl) 2 sprays NA DAILY MARTHA Stop: 03/03/21 08:59 Last Admin: 02/06/21 08:34 Dose: 2 sprays Documented by: Furosemide (Furosemide 40 Mg/4 Ml Vial) 40 mg IV DAILY MARTHA Stop: 03/04/21 12:59 Last Admin: 02/06/21 08:34 Dose: 40 mg Documented by: Guaifenesin (Guaifenesin 600 Mg Tabcr) 1,200 mg PO Q12 MARTHA Stop: 03/04/21 20:59 Last Admin: 02/06/21 08:33 Dose: 1,200 mg Documented by: Hydrocodone Bit/Homatropine Methylb (Hydrocodone/Homatropine Syrup 5mg/1.5mg 5ml Udp) 5 ml PO Q6H PRN PRN Reason: Cough Stop: 02/16/21 15:11 Last Admin: 02/05/21 20:12 Dose: 5 ml Documented by: Promethazine HCl 12.5 mg/ (Sodium Chloride) 50.5 mls @ 202 mls/hr IV Q6H PRN PRN Reason: Nausea And Vomiting Stop: 03/03/21 00:53 Last Infusion: 02/01/21 09:40 Dose: Infused Documented by: Dexamethasone 6 mg/ Syringe 1.5 mls @ 1 mls/min IV DAILY MARTHA Stop: 03/03/21 08:59 Last Admin: 02/06/21 08:29 Dose: 1 mls/min Documented by: Ipratropium [place] (Ipratropium [place] Nasal [place] 0.06% 15ml) 2 sprays NA DAILY MARTHA Stop: 03/03/21 08:59 Last Admin: 02/06/21 08:36 Dose: 2 sprays Documented by: Montelukast Sodium (Montelukast Sodium 10 Mg Tablet) 10 mg PO QAM MARTHA Stop: 03/03/21 08:59 Last Admin: 02/06/21 08:33 Dose: 10 mg Documented by: Multivitamins/Minerals (Cerovite Adv Formula Tab) 1 tab PO QAM MARTHA Stop: 03/05/21 16:59 Last Admin: 02/06/21 08:30 Dose: 1 tab Documented by: Pantoprazole Sodium (Pantoprazole 40 Mg Tab) 40 mg PO DAILYBB MARTHA Stop: 03/03/21 06:29 Last Admin: 02/06/21 06:30 Dose: 40 mg Documented by: Pentosan Polysulfate Sodium (Pentosan Polysulfate Sodium 100 Mg Cap) 100 mg PO TID MARTHA Stop: 03/03/21 08:59 Last Admin: 02/06/21 14:24 Dose: 100 mg Documented by: Ropinirole HCl (Ropinirole Hcl 0.25 Mg Tablet) 0.5 mg PO TIDM MARTHA Stop: 03/03/21 07:59 Last Admin: 02/06/21 12:22 Dose: 0.5 mg Documented by: Tramadol HCl (Tramadol Hcl 50 Mg Tablet) 25 - 50 mg PO Q4H PRN PRN Reason: Pain Stop: 03/03/21 00:53 Last Admin: 02/05/21 18:20 Dose: 50 mg Documented by: Vortioxetine (Vortioxetine Hydrobromide [Patient Own Med]) 1 ea PO HS MARTHA Stop: 03/04/21 20:59 Last Admin: 02/05/21 20:12 Dose: 1 ea Documented by:
[2021-02-06] MEDS: clonazePAM 0.25 MG TAB PO SCH (20:08)
[2021-02-06] MEDS: buPROPion SR 150 MG TABCR PO SCH (20:08)
[2021-02-06] MEDS: ESZOPICLONE 1 MG TAB PO SCH (20:10)
[2021-02-06] MEDS: HYDROcodone/HOMATROPINE SYRUP 5MG/1.5MG 5ML UDP PO PRN (20:10)
[2021-02-06] MEDS: VORTIOXETINE HYDROBROMIDE [PATIENT OWN MED] PO SCH (20:10)
[2021-02-07] MEDS: PANTOprazole 40 MG TAB PO SCH (06:16)
[2021-02-07] MEDS: dexAMETHasone 6 MG in SYRINGE 0 ML IV SCH (08:02)
[2021-02-07] MEDS: AZELASTINE HCL 0.1% NASAL 200 SPRAYS/27,400 MCG BTL SCH (08:03)
[2021-02-07] MEDS: FLUTICASONE PROPIONATE NA SPR 16 GM BTL SCH (08:03)
[2021-02-07 08:04] LABS: Basophils # (auto) 0.05 K/uL (0-0.2); Basophils % (auto) 0.3 %; Eosinophils # (auto) 0.14 K/uL (0-0.5); Eosinophils % (auto) 0.8 %; Hemoglobin 14.6 g/dL (12.0-16.0); Immature Granulocytes # (auto) 0.74 K/uL (0.00-0.02); Immature Granulocytes % (auto) 4.3 %; Lymphocytes # (auto) 2.74 K/uL (1.2-3.4); Lymphocytes % (auto) 15.8 %; Mean Corpuscular Hemoglobin 29.1 pg (25-34); Mean Corpuscular Hgb Conc 32.4 g/dL (32-36); Mean Corpuscular Volume 89.8 fL (80-100); Mean Platelet Volume 11.4 fL (7.4-10.4); Monocytes # (auto) 2.18 K/uL (0.11-0.59); Monocytes % (auto) 12.6 %; Neutrophils # (auto) 11.46 K/uL (1.4-6.5); Neutrophils % (auto) 66.2 %; Platelet Count 443 K/uL (130-400); RDW Coefficient of Variation 12.9 % (11.5-14.5); RDW Standard Deviation 42.6 fL (36.4-46.3); Red Blood Count 5.01 M/uL (4.2-5.4); White Blood Count 17.31 K/uL (4.8-10.8)
[2021-02-07] MEDS: IPRATROPIUM BROMIDE NASAL SPRAY 0.06% 15ML SCH (08:04)
[2021-02-07] MEDS: FLUTICASONE FUROATE 100MCG 14 PUFFS/INHALER INH SCH (08:04)
[2021-02-07] MEDS: BACLOFEN 20 MG TAB PO PRN (08:05)
[2021-02-07] MEDS: ENOXAPARIN INJ 40 MG/0.4 ML SYR SQ SCH (08:05)
[2021-02-07] MEDS: ASPIRIN 81 MG ECTAB PO SCH (08:06)
[2021-02-07] MEDS: MONTELUKAST SODIUM 10 MG TABLET PO SCH (08:06)
[2021-02-07] MEDS: PENTOSAN POLYSULFATE SODIUM 100 MG CAP PO SCH ×2 (08:07→13:43)
[2021-02-07] MEDS: DOXYCYCLINE HYCLATE 100 MG CAP PO SCH (08:07)
[2021-02-07] MEDS: guaiFENesin 600 MG TABCR PO SCH (08:08)
[2021-02-07] MEDS: rOPINIRole HCL 0.25 MG TABLET PO SCH ×3 (08:08→16:43)
[2021-02-07] MEDS: CEROVITE ADV FORMULA TAB PO SCH (08:08)
[2021-02-07] MEDS: FUROSEMIDE 40 MG/4 ML VIAL IV SCH (08:09)
[2021-02-07 08:36] LABS: BUN Creatinine Ratio 19.1 (10-20); Calcium 9.4 mg/dl (8.5-10.1); Creatinine Clr Calc Pharmacy 75.5 ml/min; Est GFR (African American) 72.4 ml/min; Est GFR (Non-African American) 62.5 ml/min; Magnesium 2.9 mg/dl (1.8-2.4); Phosphorus 3.4 mg/dl (2.5-4.9)
[2021-02-07] MEDS ORDERED: POTASSIUM CHLORIDE CRTAB 20 MEQ TABCR PO STA (10:05)
[2021-02-07] MEDS: FERROUS SULFATE 325 MG TAB PO SCH (10:53)
[2021-02-07] MEDS: ALUMINUM/MAGNESIUM/SIMETH (MAALOX MAX) 30 ML UDC PO PRN (11:59)
--- NOTE | 2021-02-07 15:47 | Discharge Summary ---
Date of Service February 07, 2021 Admission HPI Per Admitting Provider History obtained from patient and records. 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 Last confinement March 2015 for suicidal attempt secondary to drug overdose. Last week, patient noted cough symptoms later productive of yellow sputum, minimal shortness of breath, chest pressure symptoms with diffuse myalgias. Loose stools. Patient admitted at the hospital for COVID-19 pneumonia. Patient has not received COVID-19 vaccination. Patient consulted ER 4 days ago but subsequently discharged home. Patient noted worsening symptoms at home along with nausea, vomiting, diarrhea symptoms. No abdominal pain. Usual achy migraine headache symptoms. O2 sats upon arrival at the ER 70s on room air. Patient given Decadron at the ER. Medical History as above Surgical History : Appendectomy, section, gastric revision, cholecystectomy, left salpingo-oophorectomy, breast reduction, tonsillectomy/adenectomy, hysterectomy Family History : COPD, schizophrenia, esophageal cancer, DM, heart disease, stroke Personal/Social history : Non-smoker, occasional EtOH intake, disabled Admission Exam Per Admitting Provider GENERAL: uncomfortable, no respiratory distress, morbidly obese SKIN: Normal color, warm HEENT: Standard palpebral conjunctivae, no ptosis, dry buccal mucosa, nasal cannula in place NECK : Supple, short neck, no tenderness CHEST : Decreased breath sounds, occasional expiratory wheezes, no tenderness HEART : RRR, no obvious murmurs ABDOMEN: Some distention, nontender EXTREMITIES : Minimal LE swelling, no LE tenderness, no other conspicuous deformities noted NEUROLOGIC : Coherent, no facial asymmetry, no other gross focality Principal Diagnosis Acute hypoxemic respiratory failure: Severe COVID-19 pneumonia Discharge Exam Physical Exam: Lying in bed with moderate shortness of breath on BiPAP Constitutional: well developed, well nourished, + ill appearing and + obese Eyes: PERRL, conjunctivae normal, anicteric sclerae ENMT: external ear and nose normal, oropharynx normal Neck: trachea midline, no thyromegaly Respiratory: + respiratory distress (Moderate) and + cough Auscultation: + diminished lung sounds and + crackles (At the bases) Cardiovascular: Rate/Rhythm: regular rate and regular rhythm; not tachycardic Heart Sounds: normal S1 and normal S2; no murmur Extremities: + edema (Trace edema bilaterally) Gastrointestinal (Abdomen): Inspection/Auscultation: normal bowel sounds; abdomen not distended Percussion/Palpation: abdomen soft; abdomen nontender Musculoskeletal: No acute arthritis in any of the joint Neurologic: Alert, awake and oriented x3. Generally weak but no focal sensory and motor deficit appreciated Lymphatic: no cervical or axillary lymphadenopathy Discharge Data Allergies Allergy/AdvReac Type Severity Reaction Status Date / Time banana Allergy Severe ANAPHYLAXIS Verified 01/31/21 19:55 butorphanol Allergy Severe WANTED TO Verified 01/31/21 19:55 STOP BREATHING dog dander Allergy Severe anaphylacti Verified 01/31/21 19:55 c kiwi Allergy Severe Anaphylaxis Verified 01/31/21 19:55 pecan nut Allergy Severe ANAPHYLAXIS Verified 01/31/21 19:55 pistachio nut Allergy Severe ANAPHYLAXIS Verified 01/31/21 19:55 Sulfa (Sulfonamide Allergy Severe Hives Verified 01/31/21 19:55 Antibiotics) walnut Allergy Severe Anaphylaxis Verified 01/31/21 19:55 cat dander Allergy Intermediate Hives Verified 01/31/21 19:55 latex Allergy Unknown itchy Verified 01/31/21 19:55 Consultations 01/31/21 19:03 ED Decision to Admit Stat Ordered Studies XR chest 1V portable HISTORY: 50 years-old Female Dyspnea, COVID acute cough. COVID Positive. COMPARISON: Chest radiograph 01/27/2021 TECHNIQUE: Portable AP view of the chest FINDINGS: Cardiac mediastinal and hilar silhouettes are unchanged. Interstitial coarsening with ill-defined bilateral airspace opacities have progressively worsened. No pneumothorax or pleural effusion. No acute fracture. IMPRESSION: Mild progressive worsening of the interstitial coarsening with ill- defined airspace opacities suggestive of viral pneumonia. ACT 112: Negative or not required by law. The above report was generated using voice recognition software. It may contain grammatical, syntax or spelling errors. Electronically signed by: Teodoro Sinha M.D. 01/31/2021 5:45 PM Dictated:01/31/211742 Transcribed: 01/31/211742 Hospital Course (1) Acute hypoxemic respiratory failure: Not been vaccinated Secondary to severe COVID-19 pneumonia Decadron and Remdesivir initial dose for severe COVID-19 pneumonia. (Patient was counseled regarding potential adverse effects from Remdesivir therapy and provided with patient education sheet.) Superimposed bacterial infection, no sepsis for now Doxycycline for superimposed bacterial infection hx central sleep apnea as per records likely complicating the situation We will continue supplemental oxygen and BiPAP Prone position as tolerated Cough suppressant and use of spirometer and flutter valve May need pulmonology if the condition does not get any better Clinically better but is still requiring very high flow oxygen to maintain saturation Remains better and oxygen requirements has gone down a little bit Advised to be in prone position if possible and will maintain current management Remains stable and a little better clinically We will continue current management including Lasix and oxygen as needed Still requiring about 5-6 l of oxygen to maintain saturation-clinically a little better and will continue current management Clinically better but gets very short of breath with exertion Oxygen requirements has come down to 4 L She will be better off staying another day and will get it to a stable O2 saturation test tomorrow 2 step exercise done today, she does not require any oxygen supplement at rest or with ambulation Currently saturated well on RA Other significant medical conditions are as follows: Migraine/history pseudotumor cerebri, patient currently with minimal headache Denies any more headache Anxiety/mood disorder, at baseline No acute anxiety and or delirium History of gastric bypass without any acute issues Mast cell disorder/chronic urticaria as per records, patient [place] with [facility] [place] Interstitial cystitis, stable on regimen Prediabetes, hemoglobin A1c 5.16 November 2020 Blood sugar remains stable Hypokalemia secondary to diarrhea ro stool C. difficile Stool for C. difficile DVT prophylaxis per Lovenox subcu Full code Patient requests for her mother to be given periodic updates. Ms. Rohini Joya, contact #[phone]. Total Time Total Time Spent Total Time Spent (In Minutes): 35 minutes Discharge Plan Discharge Items Patient Disposition: Home - Self-Care Reason For Visit: RESP FAILURE, COVID Discharge Diagnosis: Acute hypoxemic respiratory failure: Severe COVID-19 pneumonia Activity: Resume your previous activity Non-emergency contact: Primary Care Provider Call non-emergency contact if: you have any medication questions and your symptoms worsen Follow-up/Referrals: Milagro Steiner PA-C [Primary Care Provider] - Diet: Heart Healthy Addtl Attending Provider Instructions: Follow up with your primary care provider within 1 week Continue practicing social distance Continue to wear your mask in public Continue incentive spirometry and fluter valve Seek medical attention if your symptom worsening or develop any shortness of breath Increase potassium intake in your diet Check BMP in 1 week to monitor your electrolytes Home Isolation COVID-19 Instructions The following information about Home Isolation is from the CDC Website: https://www.cdc.gov/coronavirus/2019-ncov/hcp/gtjpnhxp-glstovd-wmbrdi.html Stay home except to get medical care People who are mildly ill with COVID-19 are able to isolate at home during their illness. You should restrict activities outside your home, except for getting m edical care. Do not go to work, school, or public areas. Avoid using public transportation, ride-sharing, or taxis. Separate yourself from other people and animals in your home People: As much as possible, you should stay in a specific room and away from other people in your home. Also, you should use a separate bathroom, if available. Animals: You should restrict contact with pets and other animals while you are sick with COVID-19, just like you would around other people. Although there have not been reports of pets or other animals becoming sick with COVID-19, it is still recommended that people sick with COVID-19 limit contact with animals until more information is known about the virus. When possible, have another member of your household care for your animals while you are sick. If you are sick with COVID-19, avoid contact with your pet, including petting, snuggling, being kissed or licked, and sharing food. If you must care for your pet or be around animals while you are sick, wash your hands before and after you interact with pets and wear a face mask. Call ahead before visiting your doctor If you have a medical appointment, call the healthcare provider and tell them that you have or may have COVID-19. This will help the healthcare providers office take steps to keep other people from getting infected or exposed. Wear a face mask You should wear a face mask when you are around other people (e.g., sharing a room or vehicle) or pets and before you enter a healthcare providers office. If you are not able to wear a face mask (for example, because it causes trouble breathing), then people who live with you should not stay in the same room with you, or they should wear a face mask if they enter your room. Cover your coughs and sneezes Cover your mouth and nose with a tissue when you cough or sneeze. Throw used tissues in a lined trash can. Immediately wash your hands with soap and water for at least 20 seconds or, if soap and water are not available, clean your hands with an alcohol-based hand yacht captain that contains at least 60% alcohol. Clean your hands often Wash your hands often with soap and water for at least 20 seconds, especially after blowing your nose, coughing, or sneezing; going to the bathroom; and before eating or preparing food. If soap and water are not readily available, use an alcohol-based hand yacht captain with at least 60% alcohol, covering all surfaces of your hands and rubbing them together until they feel dry. Soap and water are the best option if hands are visibly dirty. Avoid touching your eyes, nose, and mouth with unwashed hands. Avoid sharing personal household items You should not share dishes, drinking glasses, cups, eating utensils, towels, or bedding with other people or pets in your home. After using these items, they should be washed thoroughly with soap and water. Clean all high-touch surfaces everyday High touch surfaces include counters, tabletops, doorknobs, bathroom fixtures, toilets, phones, keyboards, tablets, and bedside tables. Also, clean any surfaces that may have blood, stool, or body fluids on them. Use a household cleaning spray or wipe, according to the label instructions. Labels contain instructions for safe and effective use of the cleaning product including precautions you should take when applying the product, such as wearing gloves and making sure you have good ventilation during use of the product. Monitor your symptoms Seek prompt medical attention if your illness is worsening (e.g., difficulty breathing).Beforeseeking care, call your healthcare provider and tell them that you have, or are being evaluated for, COVID-19. Put on a face mask before you enter the facility. These steps will help the healthcare providers office to keep other people in the office or waiting room from getting infected or exposed. Ask your healthcare provider to call the local or state health department. Persons who are placed under active monitoring or facilitated self- monitoring should follow instructions provided by their local health department or occupational health professionals, as appropriate. When working with your loc al health department check their available hours. If you have a medical emergency and need to call 911, notify the dispatch personnel that you have, or are being evaluated for COVID-19. If possible, put on a face mask before emergency medical services arrive. Discontinuing home isolation Patients with confirmed COVID-19 should remain under home isolation precautions until the risk of secondary transmission to others is thought to be low. The decision to discontinue home isolation precautions should be made on a spoy-go-gpfi basis, in consultation with healthcare providers and state and local health departments. Coronavirus disease 2019 (COVID-19) is a virus that causes a respiratory illness. It is caused by a coronavirus called 2019 novel coronavirus (2019- nCoV). There are many types of coronavirus. Coronaviruses are a very common cause of bronchitis. They may sometimes cause lung infection(pneumonia). Symptoms can range from mild to severe respiratory illness. These viruses are also foundin some animals. COVID-19 was first found in people in [facility], in late 2018. In 2020, several cases of COVID-19 have been confirmed in the [place] Public health officials are working to find the source. How the virus spreads is not yet fully known. It may be spread through droplets of fluid that a person coughs or sneezes into the air. It may b e spread if you touch a surface with virus on it, such as a handle or object, and then touch your mouth. What are the symptoms of COVID-19? Some people have no symptoms or mild symptoms. Symptoms may appear 2 to 14 days after contact with the virus. Symptoms can include: Fever Coughing Trouble breathing What are possible complications from COVID-19? In many cases, this virus can cause infection (pneumonia) in both lungs. In some cases, this can cause . How is COVID-19 diagnosed? Your healthcare provider will ask about your symptoms. He or she will also ask about your recent travel and contact with sick people. Testing for the virus is only done through the CDC. If yourhealthcare provider thinks you may have COVID- 19, he or she will work with your local health department and the CDC on testing. Follow all instructions from your healthcare provider. COVID-19 is diagnosed by: Nasal and throat swab. A cotton-tipped swab is wiped inside your nose or throat. This is done to check for viruses in your nasal mucus. Sputum culture. A small sample of mucus coughed from your lungs (sputum) is collected if you have a cough. It is checked for the virus. How is COVID-19 treated? There is currently no medicine to treat the virus. Treatment is done to help your body while it fights the virus. This is known as supportive care. Supportive care may include: Pain medicine. These include acetaminophen and ibuprofen. They are used to help ease pain and reduce fever. Bed rest. This helps your body fight the illness. For severe illness, you may need to stay in the hospital. Care during severe illness may include: IV (intravenous) fluids.These are given through a vein to help keep your body hydrated. Oxygen. Supplemental oxygen or ventilation with a breathing machine (ventilator) may be given. This is done to keep enough oxygen in your body. Are you at risk for COVID-19? If youve been to a place where people have been sick with this virus, you are at risk for infection. You are at risk if you: Recently traveled to an affected area Had contact with a sick person who recently traveled to this area Had contact with a person who was diagnosed with COVID-19 How can COVID-19 be prevented? There is no vaccine yet. The best prevention is to not have contact with the virus. The CDC advises that people should not travel to areas where there are COVID-19 outbreaks right now for any reason that is not urgent. To help prevent spreading the infection, wash your hands often, or use an alcohol-basedhand yacht captain. If you are in an area with COVID-19: Wash your hands often. Or use an alcohol-based hand yacht captain often. Only touch your eyes, nose, or mouth with clean hands. Dont have contact with people who are sick. Follow local instructions about being in public. For example, you may be told to not use public transport for a period of time. Stay away from markets that have live or animals. Wash your hands after touching any animals. Don't touch animals that may be sick. Dont share eating or drinking tools with sick people. Dont kiss someone who is sick. Clean surfaces often with disinfectant. If you were in an area with COVID-19 in the last 14 days: Call your healthcare provider. He or she can talk with local health staff to see what action may be needed. Follow all instructions from your provider. Take your temperature every morning and evening for at least 14 days. This is to check for fever. Keep a record of the readings. Keep watch for symptoms of the virus. Tell your provider right away if you have symptoms. If you were in an area with COVID-19 and have a fever or other symptoms: Dont panic. Keep in mind that other illnesses can cause similar symptoms. Stay away from work, school, and public places. Limit physical contact with family members. Don't kiss anyone or share eating or drinking utensils. Clean surfaces you touch with disinfectant. This is to help prevent the virus from spreading. Call your healthcare provider. Explain that you have been exposed to COVID-19 and have symptoms. Do this before going to any hospital. Wait for instructions. Keep in mind that healthcare staff may wear protective equipment such as masks, gowns, gloves, and eye protection. You may be put in a separate room. This is to prevent the possible virus from spreading. Tell the healthcare staff about recent travel. This includes local travel on public transport. Staff may need to find other people you have been in contact with. Follow all instructions the healthcare staff give you. If you have been diagnosed with COVID-19 Follow all instructions from your healthcare provider. Dont leave your home, except to get medical care. Call your healthcare providers office before going. They can prepare and give you instructions. This will help prevent the virus from spreading. Dont go to work, school, or public areas. Dont use public transport or taxis. Stay away from other people in your home. Have them wear face masks around you. Dont share household items or food. Wear a face mask if you can. This includes at home or in a medical facility. Cover your face with a tissue when you cough or sneeze. Throw the tissue away. Wash your hands. Wash your hands often. Caregivers should: Follow all instructions from healthcare staff. Wear a face mask and protective clothing as advised. Wash hands often. Keep track of the sick persons symptoms. Clean surfaces, fabrics, and laundry thoroughly. Keep other people away from the sick person. When to call your healthcare provider Call your healthcare provider: If youve recently traveled and have symptoms If you have been diagnosed with COVID-19 and your symptoms are worse To learn more To find out more about COVID-19, visit the CDC website at www.cdc.gov/coronavirus/2019-ncov/index.html. 0471-2463 [employer]. [address] [place] [address]. All rights reserved. This information is not intended as a substitute for professional medical care. Always follow your healthcare professional's instructions. This information has been adapted from [employer] Pending Studies at Discharge: No Stand-Alone Forms: My [facility] [place], Smoking Cessation Medications and DC Order Prescriptions: New potassium chloride 10 mEq capsule, extended release 10 meq PO DAILY Qty: 30 RF: 0 guaifenesin 200 mg tablet 200 mg PO TID PRN (Reason: cough) 5 Days Qty: 15 RF: 0 Continued azelastine 137 mcg (0.1 %) aerosol,spray See Rx Instructions .ROUTE .COMPLEX Qty: 30 RF: 11 Xolair 150 mg recon soln 300 mg subcut .COMPLEX Qty: 2 RF: 11 ipratropium bromide 42 mcg (0.06 %) spray,non-aerosol See Rx Instructions .ROUTE .COMPLEX Qty: 15 RF: 11 hydroxyzine HCl 25 mg tablet 50 mg PO .qhs Qty: 60 RF: 11 aspirin 81 mg tablet,delayed release (DR/EC) 81 mg PO DAILY RF: 0 epinephrine 0.3 mg/0.3 mL auto-injector 0.3 mg IM ONCE PRN (Reason: anaphylaxis) Qty: 1 RF: 3 ferrous sulfate 325 mg (65 mg iron) tablet 325 mg PO BID RF: 0 ropinirole 1 mg tablet 0.5 mg PO TIDM Qty: 90 RF: 0 diclofenac sodium 1 % gel 1 ea topical UD RF: 0 (DME) CPAP Machine Misc See Rx Instructions .ROUTE .MEDSUPPLY Qty: 1 RF: 0 Qvar RediHaler 80 mcg/actuation HFA aerosol breath activated 1 inh inhalation BID Qty: 10.6 RF: 5 mupirocin 2 % ointment 1 applic topical .COMPLEX Qty: 15 RF: 0 montelukast 10 mg tablet 10 mg PO QAM RF: 0 Elmiron 100 mg capsule 100 mg PO TID RF: 0 Trintellix 20 mg tablet 20 mg PO HS RF: 0 bupropion HCl 150 mg tablet sustained-release 12 hr 150 mg PO HS RF: 0 benzonatate 100 mg capsule 200 mg PO QAM RF: 0 clonazepam 0.5 mg tablet 0.5 mg PO DAILY RF: 0 omeprazole 40 mg Capsule,Delayed Release(Dr/Ec) 40 mg PO DAILYBB RF: 0 baclofen 20 mg tablet 20 mg PO TID PRN (Reason: MUSCLE SPASMS) RF: 0 albuterol sulfate 90 mcg/actuation HFA aerosol inhaler 2 puff INHALATION Q4H PRN (Reason: Wheezing) RF: 0 fluticasone propionate [Flonase] 50 mcg/actuation [place],Suspension 2 spray INTRANASAL DAILY RF: 0 fluoride (sodium) [PreviDent 5000 Dry Mouth] 1.1 % Gel 1 applic DENTAL DAILY RF: 0 eszopiclone 2 mg Tablet 2 mg PO HS RF: 0 Wegovy 0.25 mg/0.5 mL Pen Injector 0.25 mg SUBCUT WK RF: 0 Discharge Orders: Discharge Order (Routine); Ordered 02/07/21 Ordered By: Marco Antonio Alejandra Admission Data Admit Date/Time: 01/31/21 21:13 Attending Provider: Marco Antonio Alejandra Admit Provider: Casey Starr Primary Care Provider: Milagro Steiner Other Providers: Casey Starr ; Alfred Alvarez
== END 2021-02-07 17:55 | disposition home or self-care (01) | DRG 177 ==
LOC: ED 16:34 → EDINP 21:13 → SUATTDRO 21:13 → EDINP 02-01 00:02 → 2S 02-01 21:31

== ENCOUNTER 2024-09-17 14:33 | Inpatient (IN) ==
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
[2024-09-17] MEDS ORDERED: SODIUM CHLORIDE 0.9% 100 ML IV PRN (14:59)
[2024-09-17] MEDS: SODIUM CHLORIDE 0.9% 1,000 ML IV SCH ×2 (15:05→19:39)
[2024-09-17 15:25] LABS: Hematocrit (blood only) 18.1 % (37.0-47.0); Hemoglobin 5.5 g/dl (12.0-16.0); Mean Corpuscular Hemoglobin 27.8 pg (25.0-34.0); Mean Corpuscular Volume 91.4 fL (80.0-100.0); Platelet Count 347 K/uL (130-400); RDW Standard Deviation 49.8 fL (36.4-46.3); Red Blood Count 1.98 M/uL (4.20-5.40); White Blood Count 12.08 K/ul (4.8-10.8)
[2024-09-17] MEDS: OPTIRAY 320 100ml IV ONE (15:31)
[2024-09-17 15:32] LABS: Alanine Aminotransferase 12.0 U/L (7-52); Albumin Globulin Ratio 1.9 (0.9-2); Alkaline Phosphatase 36.0 U/L (34-104); Anion Gap 6.0 (3-11); Bilirubin,Total 0.2 mg/dl (0.2-1.0); Blood Urea Nitrogen 17.0 mg/dl (6-23); Calcium 8.5 mg/dl (8.6-10.3); Carbon Dioxide 27.0 mmol/L (21-32); Chloride 106.0 mmol/L (98-107); Creatinine Clr Calc Pharmacy 100.3 ml/min; Globulin 2.0 gm/dl (2.5-4.0); Glucose 127.0 mg/dl (70-99(Fasting)); Potassium 3.2 mmol/L (3.5-5.1); Sodium 139.0 mmol/L (136-145); Total Protein 5.8 gm/dl (6.0-8.3)
[2024-09-17 15:45] LABS: Immature Granulocytes # (auto) 0.22 K/uL (0.01-0.20); Immature Granulocytes % (auto) 1.8 %; Polychromasia 1+
--- NOTE | 2024-09-17 16:04 | CT Scan Report ---
CT SCAN OF THE ABDOMEN AND PELVIS WITH IV CONTRAST CLINICAL HISTORY: GI bleed. COMPARISON STUDY: CT of the abdomen and pelvis January 22, 2014 TECHNIQUE: Following the IV administration of 93 cc of Optiray 320, CT scan of the abdomen and pelvi s is performed from the lung bases to the proximal femora. Images are reviewed in the axial, sagittal , and coronal planes. IV contrast was administered without complication. A dose lowering technique wa s utilized adhering to the principles of ALARA. CT DOSE: 1424.09 mGy.cm FINDINGS: Visualized lung bases are unremarkable. There is no pneumatosis, free air or portal venous gas. There is no biliary ductal dilatation status post cholecystectomy. There is no evidence for a benedict wel obstruction status post Jesus-en-Y gastric bypass. Prominent mesenteric lymph nodes are similar to prior CT and likely benign. Caliber and wall thickness of small and large bowel are normal. No intra luminal contrast to suggest active GI bleed by CT is identified. A peripherally calcified peritoneal loose body within the right lower quadrant is benign. Spleen, adrenal glands and kidneys are unremark able. Excreted contrast is noted. This decreases sensitivity for detection of urinary calculi. There is no hydronephrosis. IMPRESSION: 1. No acute process within the abdomen or pelvis. 2. No evidence for a bowel obstruction status post Jesus-en-Y gastric bypass. No CT evidence for activ e GI bleed. 3. No biliary ductal dilatation status post cholecystectomy. ACT 112: Negative or not required by law. Electronically signed by: Roger Pierce M.D. 09/17/2024 4:03 PM
[2024-09-17] MEDS: PANTOPRAZOLE BOLUS/DRIP IV STA (16:58)
[2024-09-17] MEDS: PANTOprazole 40 MG in DEXTROSE 5% MINI-B 100 ML IV SCH (17:02)
[2024-09-17 17:19] LABS: INR 0.9 (0.9-1.1); Prothrombin Time 10.0 Seconds (9.0-12.0)
[2024-09-17 17:24] LABS: Partial Thromboplastin Time < 20 Seconds (21-31)
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
[2024-09-17 18:02] LABS: Iron 11.0 mcg/dl (35-150); Transferrin 368.0 mg/dl (200-360)
[2024-09-17] MEDS: SODIUM CHLORIDE 0.9% 500 ML IV ONE (18:04)
[2024-09-17 18:05] LABS: Total Iron Binding Cap Calc 515.0 mcg/dl (250-450); Transferrin (FE) Percent Satur 2.0 % (15-50)
[2024-09-17 18:21] LABS: Ferritin 5.9 ng/ml (8-388)
--- NOTE | 2024-09-17 18:45 | Electrocardiogram Report ---
Test Reason : Blood Pressure : */* mmHG Vent. Rate : 123 BPM Atrial Rate : 123 BPM P-R Int : 130 ms QRS Dur : 76 ms QT Int : 346 ms P-R-T Axes : 46 28 26 degrees QTcB Int : 495 ms Sinus tachycardia Nonspecific ST and T wave abnormality Abnormal ECG When compared with ECG of 31-Jul-2024 18:41, Nonspecific T wave abnormality now evident in Lateral leads Confirmed by Balbir Ji ([id number]) on 09/17/2024 6:45:24 PM Referred By: Confirmed By: Balbir Ji
[2024-09-17 19:08] LABS: Folate (Folic Acid),Ser orPlas 13.18 ng/ml (>5.38)
[2024-09-17 19:09] LABS: Vitamin B12 264.0 pg/ml (180-914)
[2024-09-17] MEDS: ACETAMINOPHEN 1,000 MG/100 ML VIAL IV PRN (19:41)
[2024-09-17 21:29] LABS: Appearance Urine Clear (Clear); Glucose Urine UA Negative (Negative)
[2024-09-17] MEDS: PROMETHAZINE 12.5 MG/50.5 ML BAG IV STA (23:44)
[2024-09-18 01:03] LABS: Hematocrit (blood only) 22.7 % (37.0-47.0); Hemoglobin 7.4 g/dl (12.0-16.0)
[2024-09-18] MEDS: MoRPHine SULFATE 2 MG/ML CARP IV PRN (01:03)
[2024-09-18 06:28] LABS: Alanine Aminotransferase 9.0 U/L (7-52); Albumin Globulin Ratio 1.8 (0.9-2); Alkaline Phosphatase 29.0 U/L (34-104); Anion Gap 4.0 (3-11); Bilirubin,Total 0.6 mg/dl (0.2-1.0); Blood Urea Nitrogen 10.0 mg/dl (6-23); Calcium 7.8 mg/dl (8.6-10.3); Carbon Dioxide 28.0 mmol/L (21-32); Chloride 110.0 mmol/L (98-107); Creatinine Clr Calc Pharmacy 125.1 ml/min; Globulin 1.7 gm/dl (2.5-4.0); Glucose 103.0 mg/dl (70-99(Fasting)); Potassium 3.4 mmol/L (3.5-5.1); Sodium 142.0 mmol/L (136-145); Total Protein 4.8 gm/dl (6.0-8.3)
[2024-09-18 06:38] LABS: Hematocrit (blood only) 20.9 % (37.0-47.0); Hemoglobin 6.9 g/dl (12.0-16.0)
[2024-09-18] MEDS ORDERED: SODIUM CHLORIDE 0.9% 100 ML IV PRN ×2 (06:40→16:01)
[2024-09-18] MEDS: POTASSIUM CHLORIDE / WTR 10 MEQ/100 ML PLCT IV SCH (07:57)
--- NOTE | 2024-09-18 11:12 | Gastrointestinal Consultation ---
Date of Consultation September 18, 2024 Assessment & Plan (1) Melena: (2) Severe anemia: Plan -Continue IV Protonix gtt -Continue to monitor H/H and complete transfusion of PRBCs as ordered. -NPO for EGD today. Supervising Physician Co-Signing Physician Notes I saw and examined this patient with our nurse practitioner and agree with her assessment and plan. Medical picture consistent with upper GI bleed. Need to consider anastomotic ulcer. NSAID induced ulcers or peptic ulcer disease. Will proceed with endoscopy. History of Present Illness Reason for Consultation: GI bleed Attending Physician: Easton Rasmussen MD History of Present Illness Patient is a 54 yo female with PMH of Jesus-en-y, MARIAM, asthma, fibromyalgia, migraine, depression/anxiety, and EHSAN who presented to the ED with 4 days of melena and nausea. She notes that she was having dizziness and lightheadedness as well and was trying to make it through at home, but developed SOB leading to a trip to the ED. In the ED she was noted initially to have a hemoglobin of 5.4. Despite transfusion of PRBCs, she did have a decline in the hemoglobin/hematocrit overnight to 6.9/20.9. She is currently receiving the last of 3 units of PRBCs. She notes some gas/bloating but notes it improved with IV PPI therapy. She takes NSAIDs, but did recently quit taking these. CT abdomen/pelvis without alarming findings. Allergies Allergy/AdvReac Type Severity Reaction Status Date / Time banana Allergy Severe ANAPHYLAXIS Verified 07/31/24 19:53 butorphanol Allergy Severe WANTED TO Verified 07/31/24 19:53 STOP BREATHING dog dander Allergy Severe anaphylacti Verified 07/31/24 19:53 c kiwi Allergy Severe Anaphylaxis Verified 07/31/24 19:53 pecan nut Allergy Severe ANAPHYLAXIS Verified 07/31/24 19:53 pistachio nut Allergy Severe ANAPHYLAXIS Verified 07/31/24 19:53 Sulfa (Sulfonamide Allergy Severe Hives Verified 07/31/24 19:53 Antibiotics) walnut Allergy Severe Anaphylaxis Verified 07/31/24 19:53 cat dander Allergy Intermediate Hives Verified 07/31/24 19:53 latex Allergy Intermediate itchy Verified 07/31/24 19:53 sumatriptan [From Imitrex] AdvReac Intermediate Chest Pain Verified 09/18/24 00:35 Home Medications Medication Instructions Recorded Confirmed Type ferrous sulfate 325 mg (65 mg 325 mg PO DAILY 11/21/18 09/17/24 History iron) tablet clonazepam 0.5 mg tablet 0.5 mg PO DAILY PRN Anxiety 01/31/21 09/17/24 History inhaler,assist devices,access #1 ea 07/01/24 09/17/24 Rx montelukast 10 mg tablet 10 mg PO QAM 07/31/24 09/17/24 History hydroxyzine HCl 25 mg tablet 25 - 75 mg PO HS 09/17/24 09/17/24 History ropinirole 1 mg tablet 3 mg PO TID 09/17/24 09/17/24 History ropinirole 4 mg tablet 2 mg PO HS 09/17/24 09/17/24 History Patient History Medical History (Updated 09/18/24 @ 11:19 by Sara Lilly PA-C) Acute hypoxemic respiratory failure Hypoxia Migraine 2019 novel coronavirus-infected pneumonia (NCIP) FH: cholecystectomy Surgical History (Updated 09/18/24 @ 11:58 by Alfonso Barakat MD) History of Jesus-en-Y gastric bypass H/O dilation and curettage S/P tonsillectomy H/O: hysterectomy H/O section S/P gastric surgery Family History Father Diabetes Hypertension Malignant neoplasm of esophagus EHSAN (obstructive sleep apnea) Mother Cardiac disorder Aunt Kidney stones Social History Smoking Status: Never smoker Second Hand Exposure: No; Do You Dip or Chew Tobacco: No; Hx Alcohol Use: No Hx Substance Use: No Preferred Language: French Communication Ability: Effective Warrant Server Required: No Beliefs That Will Affect Care: None marital status: Current Living Situation: Alone current occupational status: unemployed and disabled Feels Safe at Home: Yes Safety Concerns: Feels Safe At This Time Assistive Devices: Denture - Upper, Denture - Lower and Glasses Review of Systems Constitutional: no fever and no chills Respiratory: no cough and no dyspnea Cardiovascular: no chest pain Gastrointestinal: + bloating, + nausea and + melena; no ab dominal pain, no heartburn, no vomiting and no hematemesis Psychiatric: no problem reported Physical Exam Constitutional: well developed Respiratory: normal respiratory effort Cardiovascular: Rate/Rhythm: regular rate Gastrointestinal (Abdomen): normal bowel sounds, soft, nontender, no hepatosplenomegaly Psychiatric: Orientation: alert and oriented x 3 Results & Data Vital Signs (Past 12 Hours) Vital Signs Temp Pulse Pulse Pulse Resp BP BP 09/18/24 10:48 36.7 C 90 16 141/77 H 09/18/24 10:47 36.8 C 74 18 117/76 09/18/24 10:33 36.8 C 88 16 118/73 09/18/24 10:06 36.7 C 88 16 129/69 09/18/24 07:40 76 09/18/24 07:20 36.7 C 81 18 09/18/24 05:41 36.8 C 76 16 105/69 09/17/24 23:40 37 C 81 15 126/81 09/17/24 23:30 119/73 BP Pulse Ox O2 Del Method 09/18/24 10:48 99 09/18/24 10:47 97 Room Air 09/18/24 10:33 97 09/18/24 10:06 96 09/18/24 07:40 09/18/24 07:20 100/64 93 Room Air 09/18/24 05:41 96 Room Air 09/17/24 23:40 96 09/17/24 23:30 PG Care Time/CCT Total # of Minutes Spent Total Time Spent with Patient: Total time spent is greater than 50% in coordination of care (as documented) at patient's floor/unit and/or counseling patient: Coding Level of Care Code 62049 IN/OBS CONSULT LVL 4,60M Diagnoses Melena K92.1 Severe anemia D64.9
[2024-09-18] MEDS: PROMETHAZINE 12.5 MG/50.5 ML BAG IV PRN (11:14)
--- NOTE | 2024-09-18 11:59 | Anesthesiology Consultation ---
Date of Service September 18, 2024 Assessment & Plan (1) Melena: (2) Symptomatic anemia: (3) History of Jesus-en-Y gastric bypass: (4) GI (gastrointestinal bleed): (5) Severe anemia: (6) Upper GI bleed: (7) History of gastric bypass: (8) Chronic interstitial cystitis: (9) COVID-19: (10) Insomnia, psychophysiological: (11) Mastocytosis: (12) Obstructive sleep apnea syndrome: (13) Sleep apnea: (14) Chronic migraine: (15) Cystitides, interstitial, chronic: (16) PTSD (post-traumatic stress disorder): (17) Restless leg syndrome: (18) Anxiety: (19) Anemia: (20) Vertigo: (21) Drug overdose, intentional: History Surgery Operation Date: 09/18/24 17:20 Proposed Procedures p Esophagogastroduodenoscopy Dr. Cyril Nam MD Pt with melena and severe anemia for upper endoscopy. Height/Weight Height: 5 ft 3 in Weight: 94.9 kg Allergies Allergy/AdvReac Type Severity Reaction Status Date / Time banana Allergy Severe ANAPHYLAXIS Verified 07/31/24 19:53 butorphanol Allergy Severe WANTED TO Verified 07/31/24 19:53 STOP BREATHING dog dander Allergy Severe anaphylacti Verified 07/31/24 19:53 c kiwi Allergy Severe Anaphylaxis Verified 07/31/24 19:53 pecan nut Allergy Severe ANAPHYLAXIS Verified 07/31/24 19:53 pistachio nut Allergy Severe ANAPHYLAXIS Verified 07/31/24 19:53 Sulfa (Sulfonamide Allergy Severe Hives Verified 07/31/24 19:53 Antibiotics) walnut Allergy Severe Anaphylaxis Verified 07/31/24 19:53 cat dander Allergy Intermediate Hives Verified 07/31/24 19:53 latex Allergy Intermediate itchy Verified 07/31/24 19:53 sumatriptan [From Imitrex] AdvReac Intermediate Chest Pain Verified 09/18/24 00:35 Medications Home Medications Medication Instructions Recorded Confirmed Last Taken ferrous sulfate 325 mg (65 mg 325 mg PO DAILY 11/21/18 09/17/24 07/31/24 08:00 iron) tablet clonazepam 0.5 mg tablet 0.5 mg PO DAILY PRN Anxiety 01/31/21 09/17/24 01/31/21 inhaler,assist devices,access #1 ea 07/01/24 09/17/24 Unknown montelukast 10 mg tablet 10 mg PO QAM 07/31/24 09/17/24 07/31/24 hydroxyzine HCl 25 mg tablet 25 - 75 mg PO HS 09/17/24 09/17/24 Unknown ropinirole 1 mg tablet 3 mg PO TID 09/17/24 09/17/24 Unknown ropinirole 4 mg tablet 2 mg PO HS 09/17/24 09/17/24 Unknown Active Medications Generic Name Dose Route Start Last Admin Trade Name Freq PRN Reason Stop Dose Admin Hydroxyzine HCl 50 mg 09/17/24 21:00 09/17/24 23:44 Hydroxyzine Hcl 25 Mg Tab PO 10/17/24 20:59 Not Given HS MARTHA Pantoprazole Sodium 40 mg/ 100 mls @ 20 mls/hr 09/17/24 15:15 09/18/24 07:58 Dextrose IV 10/17/24 15:14 8 mg/hr Q5H MARTHA 20 mls/hr Administration 8 MG/HR Sodium Chloride 1,000 mls @ 60 mls/hr 09/17/24 16:45 09/18/24 07:57 Nss IV 09/20/24 16:44 60 mls/hr .[id number] MARTHA Administration Acetaminophen 1,000 mg in 100 mls @ 400 mls/hr 09/17/24 18:45 09/18/24 06:40 Ofirmev IV 09/20/24 18:44 Infused Q8H PRN Infusion fever/pain Promethazine HCl 12.5 mg in 50.5 mls @ 202 mls/hr 09/17/24 21:59 09/18/24 11:30 Phenergan IV 10/17/24 21:58 Infused Q6H PRN Infusion Nausea And Vomiting Morphine Sulfate 2 mg 09/18/24 00:34 09/18/24 11:13 Morphine Sulfate 2 Mg/Ml Carp IV 10/02/24 00:33 2 mg Q6H PRN Administration Pain Oxycodone HCl 5 mg 09/18/24 00:34 09/18/24 03:42 Oxycodone Hcl Ir 5 Mg Tab (Immediate Release) PO 10/02/24 00:33 5 mg Q4H PRN Administration Pain Ropinirole HCl 3 mg 09/17/24 21:00 09/18/24 06:50 Ropinirole Hcl 1 Mg Tablet PO 10/17/24 20:59 3 mg TID MARTHA Administration Past Medical History Medical History (Updated 09/18/24 @ 11:19 by Sara Lilly PA-C) Acute hypoxemic respiratory failure Hypoxia Migraine 2019 novel coronavirus-infected pneumonia (NCIP) FH: cholecystectomy Past Family History Family History Father Diabetes Hypertension Malignant neoplasm of esophagus EHSAN (obstructive sleep apnea) Mother Cardiac disorder Aunt Kidney stones Past Surgical History Surgical History (Updated 09/18/24 @ 11:58 by Alfonso Barakat MD) History of Jesus-en-Y gastric bypass H/O dilation and curettage S/P tonsillectomy H/O: hysterectomy H/O section S/P gastric surgery Social History Smoking Status: Never smoker Do You Dip or Chew Tobacco: No Hx Alcohol Use: No Hx Substance Use: No substance use type: does not use Physical Exam Vital Signs Last Vital Signs Temp 36.7 C 09/18/24 11:18 Pulse 82 09/18/24 11:18 Resp 16 09/18/24 11:18 BP 153/89 H 09/18/24 11:18 Pulse Ox 96 09/18/24 11:18 O2 Del Method Room Air 09/18/24 10:47 O2 Flow Rate 0 09/17/24 19:34 Testing Laboratory Results 09/18/24 05:42 09/18/24 05:42 PT 10.0 Seconds (9.0-12.0) 09/17/24 16:26 INR 0.9 (0.9-1.1) 09/17/24 16:26 APTT < 20 Seconds (21-31) L 09/17/24 16:26 Urine Color Yellow 09/17/24 21:10 Urine Appearance Clear (Clear) 09/17/24 21:10 Urine pH 5.5 (4.5-7.5) 09/17/24 21:10 Ur Specific [place] 1.037 (1.000-1.030) H 09/17/24 21:10 Urine Protein Negative (Negative) 09/17/24 21:10 Urine Glucose (UA) Negative (Negative) 09/17/24 21:10 Urine Ketones Negative (Negative) 09/17/24 21:10 Urine Nitrite Negative (Negative) 09/17/24 21:10 Ur Leukocyte Esterase Negative (Negative) 09/17/24 21:10 Blood Type A Positive 09/17/24 14:51 Antibody Screen NEGATIVE 09/17/24 14:51 (4) GI (gastrointestinal bleed) GI bleed type/associated pathology: melena Qualified Code(s): K92.1 - Melena
--- NOTE | 2024-09-18 12:54 | Hospitalist Progress Note ---
Date of Service September 18, 2024 Assessment & Plan (1) Upper GI bleed: (2) Severe anemia: (3) History of gastric bypass: Plan: 54-year-old female with history of gastric bypass surgery, iron deficiency anemia, asthma, fibromyalgia, migraine, depression/anxiety, obstructive sleep apnea Presenting with melena and lightheadedness for the past 4 days. Melena Acute blood loss anemia H/O Iron deficiency anemia H/O Jesus-en-Y gastric bypass surgery H/O NSAIDs use until 2 months ago for prolonged period of time for arthritic pain --CT ABD: No acute process within the abdomen or pelvis. No evidence for a bowel obstruction status post Jesus-en-Y gastric bypass. No CT evidence for active GI bleed. No biliary ductal dilatation status post cholecystectomy. --S/P 3 units PRBCs Continue Protonix drip Gentle IV fluids Plan for EGD today Monitor H&H and transfuse as needed Plan for IV Venofer as able Appreciate GI input Hypokalemia Replace and monitor Check magnesium levels Obesity BMI 37 Lifestyle changes Other chronic medical problems: Asthma-continue montelukast. Currently no signs of exacerbation. Fibromyalgia, migraine. Depression/anxiety-continue clonazepam and hydroxyzine Restless leg syndrome-continue ropinirole Obstructive sleep apnea DVT Px: SCDs Re: GI bleed CODE STATUS Full code Disposition Expect to discharge home as able Admission and Anticipated Discharge Date Admission Date: September 17, 2024 Subjective Patient is seen and examined at bedside States having headache associated with some nausea this morning Denies any rectal bleed since hospitalization Also denies any chest pain, abdominal pain, dizziness Family at bedside No other complaints Review of Systems Review of Systems: All systems reviewed & are unremarkable except as noted in Subjective Physical Exam Physical Exam: Physical Exam: Vitals signs as noted above General Appearance:Obese, no apparent distress Head: normocephalic, Atraumatic Eyes: normal inspection, EOMI Neck: supple, Trachea midline Respiratory/Chest: Normal breath sounds, CTA, No accessory muscle use Cardiovascular: S1, S2, No murmur Abdomen/GI:Soft, Non tender, Bowel sounds present Extremities/Musculoskeletal:normal inspection, no edema Neurologic/Psych:AAOX3, grossly no focal neurological deficits Skin: normal color, warm Results & Data Results & Data Vital Signs (Past 12 Hours) Vital Signs Temp Pulse Pulse Pulse Resp BP BP 09/18/24 12:46 36.9 C 79 16 141/76 H 09/18/24 12:18 36.9 C 76 16 137/78 09/18/24 11:18 36.7 C 82 16 153/89 H 09/18/24 10:48 36.7 C 90 16 141/77 H 09/18/24 10:47 36.8 C 74 18 117/76 09/18/24 10:33 36.8 C 88 16 118/73 09/18/24 10:06 36.7 C 88 16 129/69 09/18/24 07:40 76 09/18/24 07:20 36.7 C 81 18 09/18/24 05:41 36.8 C 76 16 105/69 BP Pulse Ox O2 Del Method 09/18/24 12:46 98 09/18/24 12:18 97 09/18/24 11:18 96 09/18/24 10:48 99 09/18/24 10:47 97 Room Air 09/18/24 10:33 97 09/18/24 10:06 96 09/18/24 07:40 09/18/24 07:20 100/64 93 Room Air 09/18/24 05:41 96 Room Air Laboratory Results Short CBC 09/17/24 09/18/24 09/18/24 Range/Units 14:51 00:29 05:42 WBC 12.08 H (4.8-10.8) K/ul Hgb 5.5 L* 7.4 L 6.9 L* (12.0-16.0) g/dl Hct 18.1 L* 22.7 L 20.9 L* (37.0-47.0) % Plt Count 347 (130-400) K/uL BMP 09/17/24 09/18/24 14:51 05:42 Sodium 139 142 Potassium 3.2 L 3.4 L Chloride 106 110 H Carbon Dioxide 27 28 BUN 17 10 Creatinine 0.69 0.55 L Glucose 127 H 103 H Calcium 8.5 L 7.8 L Liver Function 09/17/24 09/18/24 Range/Units 14:51 05:42 Total Bilirubin 0.2 0.6 (0.2-1.0) mg/dl AST 11 L 8 L (13-39) U/L ALT 12 9 (7-52) U/L Alkaline Phosphatase 36 29 L (34-104) U/L Albumin 3.8 3.1 L (3.4-5.0) gm/dl Urine 09/17/24 Range/Units 21:10 Urine Color Yellow Urine Appearance Clear (Clear) Urine pH 5.5 (4.5-7.5) Ur Specific [place] 1.037 H (1.000-1.030) Urine Protein Negative (Negative) Urine Glucose (UA) Negative (Negative)
--- NOTE | 2024-09-18 14:33 | GI REPORT ---
[facility] Patient: CHAZ ARANA : 1970 Sex at : Female Age: 54 Years Procedure: Upper GI endoscopy Date: 09/18/2024 Attending Physician: William Nam MD Referring MD: Referred Self Indications: - Suspected upper gastrointestinal bleeding Medications: - Monitored Anesthesia Care Complications: - No immediate complications. Procedure: - Prior to the procedure, a History and Physical was performed, and patient medications and allergies were reviewed. The patient's tolerance of previous anesthesia was also reviewed. The risks and benefits of the procedure and the sedation options and risks were discussed with the patient. All questions were answered, and informed consent was obtained. [Anticoagulant Agents] [Days Prior to Procedure]. [ASA Grade]. After reviewing the risks and benefits, the patient was deemed in satisfactory condition to undergo the procedure. - The egd scope was introduced through the mouth and advanced to the jejunum. - The upper GI endoscopy was accomplished without difficulty. - The patient tolerated the procedure well. Findings: - The examined esophagus was normal. - Evidence of a gastric bypass and gastrojejunostomy were found in the gastric body. A one cm cratered ulcer was seen on the jejunal side of the anastomosis. Possible visible vessel noted . 2 cc of 1: 1000 epinephrine injected into the base of the ulcer To prevent bleeding,. two hemostatic clips were successfully placed. This was biopsied with a cold forceps for Helicobacter pylori testing. - The examined jejunum was normal. Impression: - Normal esophagus. - A gastric bypass and gastrojejunostomy was found, characterized by ulceration. Biopsied. Clips were placed. - 2 cc of 1: 1000 epinephrine injected into the base of the ulcer - Normal examined jejunum. Recommendation: - Resume previous diet. Continue PPI drip for 72 hours. NPO today clear liquids tomorrow. - Patient has a contact number available for emergencies. The signs and symptoms of potential delayed complications were discussed with the patient. Return to normal activities tomorrow. Written discharge instructions were provided to the patient. Procedure Code(s): - 98793, Esophagogastroduodenoscopy, flexible, transoral; with biopsy, single or multiple Diagnosis Code(s): - Z98.84, Bariatric surgery status - Z98.0, Intestinal bypass and anastomosis status CPT(R) - 2022 copyright [employer]. All Rights Reserved. The CPT codes, CCI edits and ICD codes generated are intended as suggestions and were generated based on input data. These codes are preliminary and upon guardian family member review may be revised to meet current compliance and payer requirements. The provider is responsible for the final determination of appropriate codes, and modifiers. William Nam MD This document has been electronically signed. Note Initiated:09/18/2024 Note Completed:09/18/2024 2:32 PM \\[id number]
[2024-09-18] MEDS ORDERED: ONDANSETRON INJ 2 MG/ML 2 ML VIAL IV PRN (14:41)
[2024-09-18] MEDS ORDERED: DROPERIDOL 5 MG/2 ML VIAL IV PRN (14:41)
[2024-09-18] MEDS ORDERED: ATROPINE SULFATE 0.1 MG/ML 10ML SYR IV PRN (14:41)
[2024-09-18] MEDS: ONDANSETRON INJ 2 MG/ML 2 ML VIAL ONE (14:46)
--- NOTE | 2024-09-18 15:38 | Anesthesiology Progress Note ---
Date of Service September 18, 2024 Anesthesia Post Procedure Vital Signs Vital Signs: Temp Pulse Pulse Pulse Resp BP BP 09/18/24 15:05 65 18 09/18/24 14:47 56 L 18 09/18/24 14:32 72 18 09/18/24 14:08 79 09/18/24 13:50 36.7 C 92 H 18 09/18/24 12:46 36.9 C 79 16 141/76 H 09/18/24 12:18 36.9 C 76 16 137/78 09/18/24 11:18 36.7 C 82 16 153/89 H 09/18/24 10:48 36.7 C 90 16 141/77 H 09/18/24 10:47 36.8 C 74 18 117/76 09/18/24 10:33 36.8 C 88 16 118/73 09/18/24 10:06 36.7 C 88 16 129/69 09/18/24 07:40 76 09/18/24 07:20 36.7 C 81 18 09/18/24 05:41 36.8 C 76 16 105/69 09/17/24 23:40 37 C 81 15 126/81 09/17/24 23:30 119/73 09/17/24 23:06 36.7 C 99 H 16 131/80 09/17/24 22:47 81 09/17/24 22:45 77 16 90/59 L 09/17/24 22:30 112/72 09/17/24 22:15 74 16 107/69 09/17/24 21:59 86 109/63 09/17/24 21:45 79 106/66 09/17/24 21:31 37.1 C 82 16 96/61 L 09/17/24 21:10 78 16 100/63 09/17/24 20:53 91 H 16 136/80 09/17/24 20:45 87 15 124/71 09/17/24 20:38 37.2 C 87 16 127/77 09/17/24 20:36 36.9 C 97 H 16 137/78 09/17/24 20:31 37 C 96 H 16 116/72 09/17/24 20:26 37.1 C 92 H 16 122/79 09/17/24 20:15 37.5 C 92 H 14 104/71 09/17/24 19:34 37.1 C 92 H 16 109/70 09/17/24 19:00 37.3 C 91 H 16 113/68 09/17/24 18:20 37.3 C 100 H 18 115/70 09/17/24 18:00 37.4 C 96 H 18 113/83 09/17/24 17:45 37.3 C 95 H 18 115/70 09/17/24 17:30 37.4 C 100 H 18 127/67 09/17/24 17:30 37.4 C 100 H 18 127/67 09/17/24 17:15 37.1 C 99 H 16 156/66 H 09/17/24 16:53 37.2 C 102 H 20 141/73 H 09/17/24 16:34 106 H 18 145/73 H 09/17/24 15:57 104 H 09/17/24 15:45 108 H 19 143/77 H BP Pulse Ox O2 Del Method O2 Flow Rate 09/18/24 15:05 122/64 98 Room Air 09/18/24 14:47 113/69 98 Room Air 09/18/24 14:32 131/74 98 Room Air 09/18/24 14:08 09/18/24 13:50 153/65 H 99 Room Air 09/18/24 12:46 98 09/18/24 12:18 97 09/18/24 11:18 96 09/18/24 10:48 99 09/18/24 10:47 97 Room Air 09/18/24 10:33 97 09/18/24 10:06 96 09/18/24 07:40 09/18/24 07:20 100/64 93 Room Air 09/18/24 05:41 96 Room Air 09/17/24 23:40 96 09/17/24 23:30 09/17/24 23:06 97 09/17/24 22:47 09/17/24 22:45 95 09/17/24 22:30 09/17/24 22:15 09/17/24 21:59 09/17/24 21:45 09/17/24 21:31 92 09/17/24 21:10 95 09/17/24 20:53 96 09/17/24 20:45 97 09/17/24 20:38 97 09/17/24 20:36 98 09/17/24 20:31 97 09/17/24 20:26 98 09/17/24 20:15 96 09/17/24 19:34 98 0 09/17/24 19:00 09/17/24 18:20 98 Room Air 09/17/24 18:00 97 09/17/24 17:45 95 09/17/24 17:30 99 09/17/24 17:30 98 09/17/24 17:15 100 09/17/24 16:53 98 09/17/24 16:34 97 Room Air 09/17/24 15:57 09/17/24 15:45 96 Room Air Transfer of Care Handoff Completed per policy Notes Mental Status: alert / awake / arousable and participated in evaluation Nausea / Vomiting: adequately controlled Pain: adequately controlled Airway Patency, RR, SpO2: stable & adequate BP & HR: stable & adequate Hydration State: stable & adequate Anesthetic Complications: no major complications apparent and Pt Satisfied with anesthetic care
--- NOTE | 2024-09-18 15:48 | XRay Report ---
UPRIGHT AND SUPINE RADIOGRAPHS OF THE ABDOMEN CLINICAL HISTORY: Post EGD abdominal pain. COMPARISON STUDY: CT of the abdomen and pelvis September 17, 2024. FINDINGS: There is no evidence for free air on upright exam. The gallbladder is surgically absent. En doscopic clips project over the left upper quadrant. The bowel gas pattern is within normal limits. P rominent jejunal loop is noted. This is likely related to the jejunojejunal anastomosis. IMPRESSION: No radiographic evidence for free air or a bowel obstruction. ACT 112: Negative or not required by law. Electronically signed by: Roger Pierce M.D. 09/18/2024 3:46 PM
[2024-09-18] MEDS: SODIUM CHLORIDE 0.9% 1,000 ML IV ONE (16:17)
[2024-09-18 16:52] LABS: Hematocrit (blood only) 26.8 % (37.0-47.0); Hemoglobin 8.5 g/dl (12.0-16.0)
--- NOTE | 2024-09-18 17:00 | Communication Note ---
Date of Service: September 18, 2024 Patient is pale, hypotensive postprocedure. She complained of abdominal pain. Discussed with GI, Appreciate input. Blood pressure improved after a liter of IV bolus. On recommendations from GI, patient will obtain CT abdomen to rule out any acute pathology. Repeat H&H stable. Will continue to monitor H&H and transfuse as needed. Further recommendations based on CT abdomen.
--- NOTE | 2024-09-18 17:12 | CT Scan Report ---
Clinical History: Abdominal pain Technique: Axial computed tomography images were obtained of the abdomen and pelvis without intravenous contrast. Findings: The liver is enlarged measuring 19.7 cm. There is no sign of cirrhosis or significant fatty infiltration. No definite liver mass lesion is seen on this noncontrast study. The gallbladder has been removed. No bile duct dilatation is noted. The spleen is of normal size. No focal splenic lesion is evident. The pancreas appears normal with no sign of acute or chronic pancreatitis and no mass lesion noted. The pancreatic duct is of normal caliber. The adrenal glands appear unremarkable. No renal or proximal ureteral calculi are seen. There is no hydronephrosis or perinephric stranding. No definite renal mass lesion is identified. The aorta is of normal caliber. No abdominal adenopathy is seen. There is a small umbilical hernia containing only fat Postsurgical changes are seen of gastric bypass surgery. There is no sign of small bowel obstruction. The colon appears unremarkable. There is no definite sign of appendicitis. No free intraperitoneal fluid or air is identified. No distal ureteral or bladder calculi are seen. No obvious bladder mass lesion is evident. The iliac arteries are of normal caliber. No pelvic adenopathy is noted. The uterus appears to have been removed The lungs bases appear clear. Mild thoracolumbar degenerative disc disease is seen. No fracture is identified. No focal osseous lesion is seen Impression: 1. Mild hepatomegaly 2. Small umbilical hernia containing only fat ACT 112: Positive. There are findings on this exam that require communication between the performing entity and the patient following Patient Test Result Information Act ([place] ACT 112) guidelines. Electronically signed by Tejas Hunt 09-18-2024 5:12 PM
[2024-09-18] MEDS: LIDOCAINE 2% 2 ML VIAL/AMP(20MG/ML) INFIL ONE (17:53)
[2024-09-18] MEDS: PROPOFOL IV EMULSION 10 MG/ML 20 ML VIAL IV ONE ×2 (17:53→17:54)
[2024-09-18] MEDS: MIDAZOLAM HCL 1 MG/ML 2ML VIAL ONE (17:53)
[2024-09-18 19:21] VITALS: RESP 18
[2024-09-18] MEDS: clonazePAM 0.5 MG TAB PO PRN (20:12)
[2024-09-18 22:44] VITALS: TEMP 98.1; O2SAT 97
[2024-09-18 22:52] LABS: Hematocrit (blood only) 24.2 % (37.0-47.0); Hemoglobin 7.8 g/dl (12.0-16.0)
[2024-09-19 05:54] LABS: Hematocrit (blood only) 26.8 % (37.0-47.0); Hemoglobin 8.5 g/dl (12.0-16.0); Mean Corpuscular Hemoglobin 28.4 pg (25.0-34.0); Mean Corpuscular Volume 89.6 fL (80.0-100.0); Platelet Count 270 K/uL (130-400); RDW Standard Deviation 53.0 fL (36.4-46.3); Red Blood Count 2.99 M/uL (4.20-5.40); White Blood Count 8.11 K/ul (4.8-10.8)
--- NOTE | 2024-09-19 06:40 | Communication Note ---
Date of Service: September 19, 2024
--- NOTE | 2024-09-19 07:26 | Discharge Summary ---
Date of Service September 19, 2024 Admission HPI Per Admitting Provider 54-year-old female with history of gastric bypass surgery, iron deficiency anemia, asthma, fibromyalgia, migraine, depression/anxiety, obstructive sleep apnea Presenting with melena and lightheadedness for the past 4 days. Patient reports that she was feeling fine until 4 days ago when she started to note melanotic stools and subsequently developed lightheadedness/dizziness. Symptoms progressed since that time and today started to have weakness and shortness of breath prompting ER consult. At the ER, patient received overall stable vital signs. Hemoglobin 5.5. CT abdomen pelvis: Patient ordered Protonix drip and 2 units of packed RBCs. GI service notified. On my exam, patient seen resting in bed, sitting up, not in distress, appears weak States she feels tired, Has some mild dyspnea but no chest pain. No abdominal pain, nausea or vomiting, fevers or chills No other new symptoms Admission Exam Per Admitting Provider General- oriented x 3, not in distress, speaks in sentences with no effort or accessory muscle use Head- atraumatic Eyes- PERRL, EOMI, anicteric Pale conjunctivae ENT- oropharynx clear Neck- supple, no JVD, no adenopathy, no thyromegaly; carotids +2/2, no bruits appreciated Lungs- clear to auscultation bilaterally, no rales/wheezes Heart- normal rate, regular rhythm; no murmur, no gallop, no rub appreciated Abdomen- normal bowel sounds, nondistended, soft, nontender, no masses or hepatosplenomegaly Extremities- no pretibial edema, no calf tenderness; peripheral pulses intact Neuro- alert, oriented x 3; CN 2-12 grossly intact; motor 5/5 bilaterally;sensation 100% on all extremities; no other gross focal neurologic deficits Skin- warm & dry, Positive pallor Principal Diagnosis Melena Acute blood loss anemia Discharge Data Allergies Allergy/AdvReac Type Severity Reaction Status Date / Time banana Allergy Severe ANAPHYLAXIS Verified 07/31/24 19:53 butorphanol Allergy Severe WANTED TO Verified 07/31/24 19:53 STOP BREATHING dog dander Allergy Severe anaphylacti Verified 07/31/24 19:53 c kiwi Allergy Severe Anaphylaxis Verified 07/31/24 19:53 pecan nut Allergy Severe ANAPHYLAXIS Verified 07/31/24 19:53 pistachio nut Allergy Severe ANAPHYLAXIS Verified 07/31/24 19:53 Sulfa (Sulfonamide Allergy Severe Hives Verified 07/31/24 19:53 Antibiotics) walnut Allergy Severe Anaphylaxis Verified 07/31/24 19:53 cat dander Allergy Intermediate Hives Verified 07/31/24 19:53 latex Allergy Intermediate itchy Verified 07/31/24 19:53 sumatriptan [From Imitrex] AdvReac Intermediate Chest Pain Verified 09/18/24 00:35 Consultations 09/17/24 14:59 Consult Gastroenterology Stat 09/17/24 16:35 ED Decision to Admit Stat 09/17/24 17:49 Consult Gastroenterology Routine Procedures Performed Operation Date: 09/18/24 17:20 Actual Procedures p EGD Biopsy Cytology - William Nam MD Ordered Studies Laboratory Results WBC 8.11 K/ul (4.8-10.8) 09/19/24 05:31 RBC 2.99 M/uL (4.20-5.40) L 09/19/24 05:31 Hgb 8.5 g/dl (12.0-16.0) L 09/19/24 05:31 POC Hgb 5.4 g/dl (12.0-16.0) L* 09/17/24 14:57 Hct 26.8 % (37.0-47.0) L 09/19/24 05:31 POC Hct 16 % (37-47) L* 09/17/24 14:57 MCV 89.6 fL (80.0-100.0) 09/19/24 05:31 MCH 28.4 pg (25.0-34.0) 09/19/24 05:31 MCHC 31.7 g/dL (32.0-36.0) L 09/19/24 05:31 RDW Std Deviation 53.0 fL (36.4-46.3) H 09/19/24 05:31 RDW Coeff of Arielle 16.9 % (11.5-14.5) H 09/19/24 05:31 Plt Count 270 K/uL (130-400) 09/19/24 05:31 MPV 11.4 fL (9.4-12.4) 09/19/24 05:31 Immature Gran % (Auto) 1.8 % 09/17/24 14:51 Neut % (Auto) 67.0 % 09/17/24 14:51 Lymph % (Auto) 21.5 % 09/17/24 14:51 [place] % (Auto) 8.4 % 09/17/24 14:51 Eos % (Auto) 0.8 % 09/17/24 14:51 Baso % (Auto) 0.5 % 09/17/24 14:51 Neut # (Auto) 8.09 K/uL (1.40-6.50) H 09/17/24 14:51 Lymph # (Auto) 2.60 K/uL (1.20-3.40) 09/17/24 14:51 [place] # (Auto) 1.01 K/uL (0.11-0.59) H 09/17/24 14:51 Eos # (Auto) 0.10 K/uL (0.00-0.50) 09/17/24 14:51 Baso # (Auto) 0.06 K/uL (0.00-0.20) 09/17/24 14:51 Immature Gran # (Auto) 0.22 K/uL (0.01-0.20) H 09/17/24 14:51 Absolute Nucleated RBC 0.05 K/uL (0.00-0.12) 09/19/24 05:31 Nucleated RBC % (auto) 0.6 % 09/19/24 05:31 Polychromasia 1+ 09/17/24 14:51 PT 10.0 Seconds (9.0-12.0) 09/17/24 16:26 INR 0.9 (0.9-1.1) 09/17/24 16:26 APTT < 20 Seconds (21-31) L 09/17/24 16:26 PTT Ratio 0.7 09/17/24 16:26 POC Sodium 139 mmol/L (135-144) 09/17/24 14:57 Sodium 141 mmol/L (136-145) 09/19/24 05:31 POC Potassium 3.1 mmol/L (3.3-5.0) L 09/17/24 14:57 Potassium 3.3 mmol/L (3.5-5.1) L 09/19/24 05:31 POC Chloride 103 mmol/L (101-112) 09/17/24 14:57 Chloride 110 mmol/L (98-107) H 09/19/24 05:31 Carbon Dioxide 27 mmol/L (21-32) 09/19/24 05:31 POC Total CO2 24 mmol/L (24-31) 09/17/24 14:57 Anion Gap 4 (3-11) 09/19/24 05:31 POC Anion Gap 15.0 mmol/L (16-25) L 09/17/24 14:57 POC BUN 15 mg/dl (7-18) 09/17/24 14:57 BUN 6 mg/dl (6-23) 09/19/24 05:31 Creatinine 0.53 mg/dl (0.6-1.2) L 09/19/24 05:31 POC Creatinine 0.7 mg/dl (0.6-1.3) 09/17/24 14:57 Est Cr Clr Drug Dosing 129.9 ml/min 09/19/24 05:31 eGFR 108.48 09/19/24 05:31 BUN/Creatinine Ratio 11.3 (10-20) 09/19/24 05:31 Glucose 91 mg/dl (70-99(Fasting)) 09/19/24 05:31 POC Glucose (other) 125 mg/dl (70-99) H 09/17/24 14:57 Calcium 7.8 mg/dl (8.6-10.3) L 09/19/24 05:31 POC Ioniz Calcium Madhuri 1.08 mmol/l (1.12-1.32) L 09/17/24 14:57 Magnesium 1.8 mg/dl (1.7-2.4) 09/19/24 05:31 Iron 11 mcg/dl (35-150) L 09/17/24 14:51 TIBC 515 mcg/dl (250-450) H 09/17/24 14:51 Transferrin 368 mg/dl (200-360) H 09/17/24 14:51 Transferrin % Sat 2 % (15-50) L 09/17/24 14:51 Ferritin 5.9 ng/ml (8-388) L 09/17/24 14:51 Total Bilirubin 0.6 mg/dl (0.2-1.0) 09/18/24 05:42 AST 8 U/L (13-39) L 09/18/24 05:42 ALT 9 U/L (7-52) 09/18/24 05:42 Alkaline Phosphatase 29 U/L (34-104) L 09/18/24 05:42 Total Protein 4.8 gm/dl (6.0-8.3) L D 09/18/24 05:42 Albumin 3.1 gm/dl (3.4-5.0) L 09/18/24 05:42 Globulin 1.7 gm/dl (2.5-4.0) L 09/18/24 05:42 Albumin/Globulin Ratio 1.8 (0.9-2) 09/18/24 05:42 Vitamin B12 264 pg/ml (180-914) 09/17/24 14:51 Folate 13.18 ng/ml (>5.38) 09/17/24 14:51 Urine Color Yellow 09/17/24 21:10 Urine Appearance Clear (Clear) 09/17/24 21:10 Urine pH 5.5 (4.5-7.5) 09/17/24 21:10 Ur Specific [place] 1.037 (1.000-1.030) H 09/17/24 21:10 Urine Protein Negative (Negative) 09/17/24 21:10 Urine Glucose (UA) Negative (Negative) 09/17/24 21:10 Urine Ketones Negative (Negative) 09/17/24 21:10 Urine Blood Negative (Negative) 09/17/24 21:10 Urine Nitrite Negative (Negative) 09/17/24 21:10 Urine Bilirubin Negative (Negative) 09/17/24 21:10 Urine Urobilinogen Negative (Negative) 09/17/24 21:10 Ur Leukocyte Esterase Negative (Negative) 09/17/24 21:10 Urine Comment 09/17/24 21:10 Blood Type A Positive 09/17/24 14:51 Blood Type Recheck A Positive 09/17/24 16:26 Antibody Screen NEGATIVE 09/17/24 14:51 Crossmatch See Detail 09/17/24 14:51 Impressions KUB X-Ray 09/18/24 15:12 UPRIGHT AND SUPINE RADIOGRAPHS OF THE ABDOMEN CLINICAL HISTORY: Post EGD abdominal pain. COMPARISON STUDY: CT of the abdomen and pelvis September 17, 2024. FINDINGS: There is no evidence for free air on upright exam. The gallbladder is surgically absent. Endoscopic clips project over the left upper quadrant. The bowel gas pattern is within normal limits. Prominent jejunal loop is noted. This is likely related to the jejunojejunal anastomosis. IMPRESSION: No radiographic evidence for free air or a bowel obstruction. ACT 112: Negative or not required by law. Electronically signed by: Roger Pierce M.D. 09/18/2024 3:46 PM Abdomen/Pelvis CT 09/18/24 16:00 Clinical History: Abdominal pain Technique: Axial computed tomography images were obtained of the abdomen and pelvis without intravenous contrast. Findings: The liver is enlarged measuring 19.7 cm. There is no sign of cirrhosis or significant fatty infiltration. No definite liver mass lesion is seen on this noncontrast study. The gallbladder has been removed. No bile duct dilatation is noted. The spleen is of normal size. No focal splenic lesion is evident. The pancreas appears normal with no sign of acute or chronic pancreatitis and no mass lesion noted. The pancreatic duct is of normal caliber. The adrenal glands appear unremarkable. No renal or proximal ureteral calculi are seen. There is no hydronephrosis or perinephric stranding. No definite renal mass lesion is identified. The aorta is of normal caliber. No abdominal adenopathy is seen. There is a small umbilical hernia containing only fat Postsurgical changes are seen of gastric bypass surgery. There is no sign of small bowel obstruction. The colon appears unremarkable. There is no definite sign of appendicitis. No free intraperitoneal fluid or air is identified. No distal ureteral or bladder calculi are seen. No obvious bladder mass lesion is evident. The iliac arteries are of normal caliber. No pelvic adenopathy is noted. The uterus appears to have been removed The lungs bases appear clear. Mild thoracolumbar degenerative disc disease is seen. No fracture is identified. No focal osseous lesion is seen Impression: 1. Mild hepatomegaly 2. Small umbilical hernia containing only fat ACT 112: Positive. There are findings on this exam that require communication between the performing entity and the patient following Patient Test Result Information Act ([place] ACT 112) guidelines. Electronically signed by Tejas Hunt 09-18-2024 5:12 PM Hospital Course (1) Upper GI bleed: (2) Severe anemia: (3) History of gastric bypass: 54-year-old female with history of gastric bypass surgery, iron deficiency anemia, asthma, fibromyalgia, migraine, depression/anxiety, obstructive sleep apnea Presenting with melena and lightheadedness for the past 4 days. Melena Acute blood loss anemia Gastrojejunostomy ulceration H/O Iron deficiency anemia H/O Jesus-en-Y gastric bypass surgery H/O NSAIDs use until 2 months ago for prolonged period of time for arthritic pain --CT ABD: No acute process within the abdomen or pelvis. No evidence for a bowel obstruction status post Jesus-en-Y gastric bypass. No CT evidence for active GI bleed. No biliary ductal dilatation status post cholecystectomy. --S/P 3 units PRBCs --S/P EGD:Normal esophagus. A gastric bypass and gastrojejunostomy was found, characterized by ulceration. Biopsied. Clips were placed. 2 cc of 1: 1000 epinephrine injected into the base of the ulcer. Normal examined jejunum. Continue Protonix drip for 72 hrs as recommended by GI Gentle IV fluids Monitor H&H and transfuse as needed Plan for IV Venofer as able Appreciate GI input Informed by RN and Case Packer at 6:30AM that patient feels well and prefers to sign out Against Medical Advice. Patient was educated by the staff about leaving AMA but she prefers to leave the hospital before providing appropriate care. Patient left AMA at 7AM and I was unable to discuss in person. Was informed by RN that she would want any scripts sent to her pharmacy. Script for Protonix was sent to her pharmacy. Hypokalemia Replace and monitor Check magnesium levels Obesity BMI 37 Lifestyle changes Other chronic medical problems: Asthma-continue montelukast. Currently no signs of exacerbation. Fibromyalgia, migraine. Depression/anxiety-continue clonazepam and hydroxyzine Restless leg syndrome-continue ropinirole Obstructive sleep apnea DVT Px: SCDs Re: GI bleed CODE STATUS Full code Disposition AGAINST MEDICAL ADVICE Total Time Total Time Spent Total Time Spent (In Minutes): 23 Discharge Plan Discharge Items Patient Disposition: Against Medical Advice Reason For Visit: GI BLEED, ANEMIA Condition on Discharge: Serious Activity: As commented below Non-emergency contact: Primary Care Provider and Nursery Nurse Follow-up/Referrals: Milagro Steiner PA-C [Primary Care Provider] - Pending Studies at Discharge: Yes Stand-Alone Forms: [email or web address], Smoking Cessation Medications and DC Order Prescriptions: New pantoprazole [Protonix] 40 mg tablet,delayed release (DR/EC) 40 mg PO BID Qty: 60 0RF Continued (DME) inhaler,assist devices,access Device See Rx Instructions .MEDSUPPLY Qty: 1 0RF Rx Instructions: spacer for HFA inhlaer, use as directed clonazepam 0.5 mg tablet 0.5 mg PO DAILY PRN (Reason: Anxiety) montelukast 10 mg tablet 10 mg PO QAM ropinirole 4 mg tablet 2 mg PO HS ropinirole 1 mg tablet 3 mg PO TID Rx Instructions: take in the morning,at noon, and before bed hydroxyzine HCl 25 mg tablet 25 - 75 mg PO HS Rx Instructions: TAKE 2-3 TABLETS AT BEDTIME FOR ITCHING- Changed ferrous sulfate 325 mg (65 mg iron) tablet 325 mg PO BID Qty: 60 0RF Discharge Orders: Left Against Medical Advice (Routine); Ordered 09/19/24 Ordered By: Easton Rasmussen Admission Data Admit Date/Time: 09/17/24 16:36 Attending Provider: Easton Rasmussen Admit Provider: Jordan Quintana Primary Care Provider: Milagro Steiner Other Providers: William Nam I; Jordan Quintana
[2024-09-19 07:29] LABS: Anion Gap 4.0 (3-11); Blood Urea Nitrogen 6.0 mg/dl (6-23); Calcium 7.8 mg/dl (8.6-10.3); Carbon Dioxide 27.0 mmol/L (21-32); Chloride 110.0 mmol/L (98-107); Creatinine Clr Calc Pharmacy 129.9 ml/min; Glucose 91.0 mg/dl (70-99(Fasting)); Magnesium 1.8 mg/dl (1.7-2.4); Potassium 3.3 mmol/L (3.5-5.1); Sodium 141.0 mmol/L (136-145)
[2024-09-19 07:36] VITALS: BP 95/57; PULSE 76
== END 2024-09-19 07:36 | disposition left against medical advice (07) | DRG 393 ==
LOC: ED 14:33 → SUATTDRO 16:36 → 4W 16:36